=== PATIENT | female | born 1970 | race Caucasian/White ===

== ENCOUNTER 2017-08-06 11:58 | Inpatient (IN) | payer MEDICAID, OTHER ==
[~2017-08-06] VITALS: Ht 167.6 cm; Wt 226.3 kg
[~2017-08-06 11:58] MED LIST: DILT60TA55 PO; LISI10TA11 PO; METF500T2 PO; NAPR-1717 PO; ORE25 PO
[2017-08-06 12:01] VITALS: BP 135/78
--- NOTE | 2017-08-06 12:04 | NUR ---
PATIENT PRESENTS TO ED WITH SOB X YESTERDAY . PT STATES CONTINUOUS COUGHING , SOB, X YESTERDAY---APPEARING LETHARGIC, SLOWS / DRAGS SPEECH MID SENTENCE---PEDAL PITTING EDEMA NOTED--] . DENIES N/V/D; SKIN IS PINK/COOL/DRY; AOX4 RHONCHI TO ALL LOBES AUSCULTATED HR EVEN AND TACHY; PT DENIES ANY FEVER, CP ; PATIENT STATES PAIN OF 0/10 AT THIS TIME; VSS; PATIENT POSITIONED FOR COMFORT; HOB ELEVATED; BEDRAILS UP X2; BED DOWN. ER MD MADE AWARE OF PT STATUS.
[2017-08-06] MEDS ORDERED: ALBUTEROL SULFATE/IPRATROPIU 3 ML SOL IH ONE ×3 (12:05→14:40)
[2017-08-06] MEDS ORDERED: methylPREDNISolone SS 125 MG in WATER STERILE 2 ML IV ONE (12:05)
--- NOTE | 2017-08-06 12:09 | NUR ---
RT AT BEDSIDE
[2017-08-06] MEDS ORDERED: ALBU0.0912 IH (12:22)
[2017-08-06] MEDS ORDERED: GABA300C PO (12:22)
[2017-08-06] MEDS ORDERED: BECL0.0464 INH (12:22)
[2017-08-06] MEDS ORDERED: ALBU-71 IH (12:22)
--- NOTE | 2017-08-06 12:37 | NUR ---
RT AT BEDSIDE TO DRAW ABG
[2017-08-06 12:46] LABS: BASOPHILS # (AUTO) 0.2 K/uL (0.00-0.22); BASOPHILS % (AUTO) 1.8 % (0.0-2.0); EOSINOPHILS # (AUTO) 0.1 K/uL (0-0.4); HEMATOCRIT 35.3 % (36-48); HEMOGLOBIN 11.6 g/dL (12.0-16.0); LYMPHOCYTES # (AUTO) 0.8 K/uL (2.5-16.5); LYMPHOCYTES % (AUTO) 8.4 % (20.5-51.1); MEAN CORPUSCULAR HEMOGLOBIN 27 pg (27-31); MEAN CORPUSCULAR HGB CONC 33 g/dL (33-37); MEAN CORPUSCULAR VOLUME 81 fL (80-94); MONOCYTES # (AUTO) 1.2 K/uL (0.8-1.0); MONOCYTES % (AUTO) 11.9 % (1.7-9.3); NEUTROPHILS # (AUTO) 7.5 K/uL (1.8-7.7); NEUTROPHILS % (AUTO) 76.9 % (42.2-75.2); PLATELET COUNT (AUTO) 240 K/uL (140-450); RED BLOOD CELL COUNT(AUTO) 4.35 MIL/uL (4.20-5.40); RED CELL DISTRIBUTION WIDTH 14.7 % (11.6-13.7); WHITE BLOOD COUNT (AUTO) 9.8 K/uL (4.8-10.8)
--- NOTE | 2017-08-06 13:00 | NUR ---
URINE AND FECAL INCONTINENCE DURING COUGHING SPELL---CLEANED AND LINEN CHANGED--PT TOLERATED WITH MINIMAL DISCOMFORT STATED BY PT.---LONG PLACED AFTER CLEANING----
[2017-08-06] MEDS ORDERED: FUROSEMIDE 40 MG/4 ML VIAL IVP ONE (13:05)
[2017-08-06] MEDS ORDERED: NITROGLYCERIN 2% 1 GM PKT TP ONE (13:10)
[2017-08-06 13:12] LABS: ALBUMIN 3.5 g/dL (3.4-5.0); ANION GAP 13.1 (8-16); CARBON DIOXIDE 28.9 mmol/L (21-32); TOTAL BILIRUBIN 0.9 mg/dL (0.0-1.0)
--- NOTE | 2017-08-06 14:00 | NUR ---
PT ABLE TO HOLD CONVERSATION WITH DAUGHTERS AT BEDSIDE WITHOUT RESP DISTRESS NOTED---REMAINS NC 2 L---DENIES PAIN AT THIS TIME
--- NOTE | 2017-08-06 14:02 | NUR ---
FAMILY AT BEDSIDE---PT ADMITS BREATHING A LITTLE EASIER--DRY COUGH NOTED
[2017-08-06] MEDS ORDERED: ASPIRIN 325 MG TAB PO ONE (14:20)
--- NOTE | 2017-08-06 14:40 | NUR ---
RESTING WITH OU CLOSED, REMAIN ON O2 NC 2 L---DAUGHTERS STATED , THEY WILL RETURN LATER. PT AWAITS AVAILABLE ROOM FOR ADMISSION
--- NOTE | 2017-08-06 14:41 | NUR ---
RT AT BEDSIDE , REPEAT BREATHING TREATMENT
--- NOTE | 2017-08-06 14:45 | NUR ---
ADMITTING DX: SOB FOLLOW UP HHN THERAPY GIVEN
[2017-08-06] MEDS ORDERED: ONDANSETRON 4 MG/2 ML VIAL IVP PRN (14:55)
[2017-08-06 15:19] LABS: APPEARANCE,URINE CLEAR (CLEAR); BILIRUBIN,URINE NEGATIVE (NEGATIVE); BLOOD, URINE NEGATIVE (NEGATIVE); COLOR,URINE YELLOW (YELLOW); LEUKOCYTE ESTERASE ,URINE NEGATIVE (NEGATIVE); NITRITE, URINE NEGATIVE (NEGATIVE); PH,URINE 5.5 (5.0-9.0); UGLUCOSE NEGATIVE (NEGATIVE)
--- NOTE | 2017-08-06 15:20 | NUR ---
RESTING WITH OU CLOSED, NO S/S RESP DISTRESS AT THIS TIME WITH NO OBVIOUS ACCESSORY MUSCLE USE NOTED---NO GRIMACE NO MOAN--- AWAITS AVAILABLE ROOM FOR ADMISSION
--- NOTE | 2017-08-06 15:48 | NUR ---
Marj liz in [facility] - 08/06/17 at 1548 by MITCH Patient BIBA to bed 2.
--- NOTE | 2017-08-06 16:00 | NUR ---
RECEIVED PT ON UNIT VIA GURNEY, PT IS A/OX4, AMBULATES WITH ASSIST, PT IS HAVING SOB, PT IS ON O2 2L NC, PT HAS IV ON THE LEFT AND RIGHT AC, #20, PATENT, INTACT, FLUSHING WELL, PT HAS LONG CATHETER IN PLACE, 100ML OF CLEAR YELLOW URINE NOTED, SKIN IS INTACT, DISCUSSED PLAN OF CARE WITH PT, PT VERBALIZED UNDERSTANDING, ORIENTED PT TO ROOM, SAFETY/FALL PRECAUTIONS ARE IN PLACE, CALL LIGHT IS WITHIN REACH, PATIENT'S FAMILY MEMBER IS AT BEDSIDE.
--- NOTE | 2017-08-06 16:08 | NUR ---
Pt transferred to Tele via 107-B, REPORT GIVEN TO QUENTIN CHUN
--- NOTE | 2017-08-06 18:24 | NUR ---
PT SITTING IN BED EATING DINNER AT THIS TIME, CALL LIGHT WITHIN REACH.
--- NOTE | 2017-08-06 19:10 | NUR ---
ENDORSED PT TO RELIEF CAPTAIN NURSE FOR CONTINUITY OF CARE, PT STABLE AT THIS TIME, RT IS AT PT BEDSIDE.
--- NOTE | 2017-08-06 19:11 | NUR ---
RECEIVED REPORT AT BEDSIDE FROM DAY SHIFT RN. PT A/OX4 ON 4L O2 VIA NASAL CANNULA. PT HAS A 20G IV TO RIGHT AND LEFT AC. SKIN INTACT. SAFETY PRECAUTIONS IN PLACE. UPDATED BOARD. VITAL SIGNS WITHIN NORMAL LIMITS. PT IN STABLE CONDITION, NO SIGNS OF DISTRESS NOTED. BED IN LOW POSITION, CALL LIGHT WITHIN REACH. WILL CONTINUE TO MONITOR.
[2017-08-06] MEDS ORDERED: guaiFENesin DM 200/20 MG-10 ML 10 ML UDC PO PRN (20:45)
[2017-08-06] MEDS ORDERED: DEXTROSE 50% 50 ML SYR IVP PRN (20:45)
[2017-08-06] MEDS ORDERED: PNEUMOCOCCAL VACCINE 23 MCG/0.5 ML VIAL IMVAC PRN (21:20)
[2017-08-06 21:24] LABS: CREATINE KINASE MB 0.9 ng/mL (0-3.6)
[2017-08-06 21:40] VITALS: BP 147/84
[2017-08-06] MEDS: MORPHINE SULFATE 2 MG/ML SYR IVP PRN (22:02)
[2017-08-06] MEDS ORDERED: CLOPIDOGREL 75 MG TAB PO STA (22:39)
--- NOTE | 2017-08-06 22:40 | NUR ---
SPOKE TO DR MURO ON PHONE REGARDING ELEVATED TROPONIN. WILL PUT IN ORDERS
--- NOTE | 2017-08-06 23:00 | NUR ---
ADMINISTERED PLAVIX AND COUGH MEDICATION, PT TOLERATED WELL.
[2017-08-06] MEDS: guaiFENesin DM 200/20 MG-10 ML 10 ML UDC PO PRN (23:09)
--- NOTE | 2017-08-06 23:31 | NUR ---
SPOKE TO DR MURO ABOUT RADIOLOGY NOT BEING ABLE TO DO THE CT ON PATIENT DUE TO PATIENT WEIGHT. SPOKE TO THE PATIENT, AND STATED HE WOULD PUT IN NEW ORDERS. Addendum: 08/06/17 at 2335 by Maryjane Rivera RN ALSO SPOKE TO ABOUT ECG AND ABG RESULTS, SAID HE WOULD LOOK AT RESULTS.
[2017-08-06] MEDS: ALBUTEROL 0.083% 2.5 MG/3 ML NEBU IH PRN (23:36)
--- NOTE | 2017-08-06 23:47 | NUR ---
PLACED PATIENT ON 50% VENTURI MASK. TOLERATED WELL. 02 SAT AT 99%. NOTIFIED NURSE PAULA
[2017-08-07] VITALS: BP 158/83
[2017-08-07] MEDS ORDERED: ENOXAPARIN 100 MG/ML SYR SUBQ SCH (00:10)
[2017-08-07 04:00] VITALS: BP 119/89
[2017-08-07] MEDS: guaiFENesin DM 200/20 MG-10 ML 10 ML UDC PO PRN ×3 (05:09→20:59)
[2017-08-07 06:27] LABS: BASOPHILS # (AUTO) 0.1 K/uL (0.00-0.22); BASOPHILS % (AUTO) 1.6 % (0.0-2.0); EOSINOPHILS % (AUTO) 0.6 % (0.0-4.0); HEMATOCRIT 34.7 % (36-48); HEMOGLOBIN 11.3 g/dL (12.0-16.0); LYMPHOCYTES # (AUTO) 1.1 K/uL (2.5-16.5); LYMPHOCYTES % (AUTO) 17.2 % (20.5-51.1); MEAN CORPUSCULAR HEMOGLOBIN 27 pg (27-31); MEAN CORPUSCULAR HGB CONC 33 g/dL (33-37); MEAN CORPUSCULAR VOLUME 83 fL (80-94); MONOCYTES # (AUTO) 0.4 K/uL (0.8-1.0); NEUTROPHILS # (AUTO) 4.7 K/uL (1.8-7.7); NEUTROPHILS % (AUTO) 73.6 % (42.2-75.2); PLATELET COUNT (AUTO) 220 K/uL (140-450); RED CELL DISTRIBUTION WIDTH 14.9 % (11.6-13.7); WHITE BLOOD COUNT (AUTO) 6.3 K/uL (4.8-10.8)
[2017-08-07] MEDS: BLOOD GLUCOSE MONITORING 1 DEV DEV FS SCH ×2 (06:47→16:11)
--- NOTE | 2017-08-07 06:48 | NUR ---
PT BLOOD SUGAR 212. WILL NOT GIVE INSULIN BECAUSE PT IS NPO AND NOT RECEIVING IV FLUIDS.
[2017-08-07 06:49] LABS: ALBUMIN 3.2 g/dL (3.4-5.0); ANION GAP 10.9 (8-16); CARBON DIOXIDE 31.5 mmol/L (21-32); CREATININE 1.1 mg/dL (0.6-1.3); POTASSIUM 4.4 mmol/L (3.5-5.1); TOTAL BILIRUBIN 0.7 mg/dL (0.0-1.0)
[2017-08-07 07:08] LABS: CREATINE KINASE MB 0.8 ng/mL (0-3.6)
--- NOTE | 2017-08-07 07:10 | NUR ---
RECEIVED REPORT FROM CUSTOM PROTECTION OFFICER NURSE, PT IS IN BED, GETTING A SPONGE BATH BY THE BEAM CARRIER HAULER PUSHER, PT IS A/OX4, PT AMBULATES WITH WALKER, PT HAS IV ON THE LEFT AND RIGHT AC PATENT, INTACT, FLUSHING WELL, SKIN IS INTACT, PT IS ON A VENTURI MASK 15L, LONG BAG IS IN PLACE, DISCUSSED PLAN OF CARE WITH PT, PT VERBALIZED UNDERSTANDING, SAFETY/FALL PRECAUTIONS ARE IN PLACE, CALL LIGHT IS WITHIN REACH, WILL CONTINUE TO MONITOR.
--- NOTE | 2017-08-07 07:15 | NUR ---
ENDORSED PT TO DAY SHIFT RN, PT IN STABLE CONDITION.
[2017-08-07] MEDS: ALBUTEROL 0.083% 2.5 MG/3 ML NEBU IH PRN (07:38)
[2017-08-07 08:00] VITALS: BP 118/72
[2017-08-07] MEDS ORDERED: FUROSEMIDE 100 MG/10 ML VIAL IV SCH (09:00)
[2017-08-07] MEDS ORDERED: ENOXAPARIN 40 MG/0.4 ML SYR SUBQ SCH (09:00)
--- NOTE | 2017-08-07 09:03 | NUR ---
PATIENT HAS BEEN SCREENED AND CATEGORIZED HIGH NUTRITION RISK. PATIENT WILL BE SEEN WITHIN 1-2 DAYS OF ADMISSION. 08/06/17-08/07/[address]
[2017-08-07] MEDS: ASPIRIN 325 MG TAB PO SCH (09:32)
--- NOTE | 2017-08-07 09:32 | NUR ---
DUE MEDICATION GIVEN, PT TOLERATED WELL. CALL LIGHT WITHIN REACH.
[2017-08-07] MEDS: ENOXAPARIN 100 MG/ML SYR SUBQ SCH ×2 (09:39→21:24)
[2017-08-07 12:00] VITALS: BP 153/75
--- NOTE | 2017-08-07 12:00 | NUR ---
SPOKE TO DR. PACHECO I ASKED HIM IF THE PATIENT STILL NEEDED TO BE NPO, PER DR. PACHECO PT CAN EAT NOW.
[2017-08-07] MEDS: methylPREDNISolone SS 125 MG/2 ML VIAL IVP SCH ×2 (12:12→20:53)
--- NOTE | 2017-08-07 13:21 | NUR ---
Clinical review faxed to [facility] at [phone]
[2017-08-07] MEDS: MORPHINE SULFATE 2 MG/ML SYR IVP PRN ×2 (13:23→19:31)
--- NOTE | 2017-08-07 14:45 | NUR ---
08/07/17 RD INITIAL ASSESSMENT COMPLETED PLEASE REFER TO NUTRITION ASSESSMENT UNDER CARE ACTIVITY FOR ESTIMATED NUTRITIONAL NEEDS. 1.BEGIN CARDIAC CCHO 60 GM DIET, CONTINUE TO ASSESS PO ITNKAE AND DIET TOLERANCE 2.ATTEMPT TO DISCUSS AT-HOME DIET AND DIETARY RESTRICTIONS AT RD FOLLOW-UP VISIT 3.RD TO FOLLOW-UP 2-3 DAYS, HIGH RISK RHIANNON CEE, RD
[2017-08-07] MEDS ORDERED: FUROSEMIDE 40 MG/4 ML VIAL IVP SCH (15:46)
[2017-08-07 16:00] VITALS: BP 136/87
--- NOTE | 2017-08-07 16:00 | NUR ---
DR. ADAME IS AT PATIENT'S BEDSIDE SPEAKING WITH PT.
[2017-08-07] MEDS: INSULIN LISPRO SLIDING SCALE 100 UNITS/ML VIAL SUBQ PRN (16:14)
--- NOTE | 2017-08-07 17:25 | NUR ---
PAGED DR. PACHECO TO LET HIM KNOW THE PATIENT URINE WAS APPEARING RED.
[2017-08-07] MEDS: BUDESONIDE 0.5 MG/2 ML NEBU INH SCH (19:02)
[2017-08-07] MEDS: ALBUTEROL 0.083% 2.5 MG/3 ML NEBU INH SCH ×2 (19:02→23:15)
--- NOTE | 2017-08-07 19:24 | NUR ---
ENDORSED PT TO SENIOR SYSTEMS ANALYST NURSE FOR CONTINUITY OF CARE, PT STABLE AT THIS TIME.
--- NOTE | 2017-08-07 19:25 | NUR ---
RECEIVED REPORT AT BEDSIDE FROM DAY SHIFT RN. PT A/OX4 ON 5L O2 VIA OXYMIZER. PT HAS A 20G IV TO RIGHT AND LEFT AC. SKIN INTACT. LONG CATHETER IN PLACE WITH BLOOD IN URINE, HAS BEEN PAGED PER DAY SHIFT RN. SAFETY PRECAUTIONS IN PLACE. UPDATED BOARD. VITAL SIGNS WITHIN NORMAL LIMITS, PT C/O PAIN, WILL MEDICATE. PT IN STABLE CONDITION, NO SIGNS OF DISTRESS NOTED. BED IN LOW POSITION, CALL LIGHT WITHIN REACH. WILL CONTINUE TO MONITOR.
[2017-08-07 20:00] VITALS: BP 130/85
[2017-08-07] MEDS: FUROSEMIDE 40 MG/4 ML VIAL IVP SCH (20:52)
--- NOTE | 2017-08-07 21:00 | NUR ---
ENDORSED PT TO CORNICE MAKER PEYTON. PT IN STABLE CONDITION.
--- NOTE | 2017-08-07 21:15 | NUR ---
PATIENT WAS RECEIVED BY ADIEL LEE PATIENT AWAKE ALERT ORIENTED RESTING IN BED HAS OXYGEN IN PLACE COUGHING NOTED WITH NO PHLEGM AT THIS TIME.PATIENT IS CURRENTLY SOILED WITH URINE PATIENT STATES,"IM WET MY LONG CATHETER IS LEAKING." I WILL CHECK THE LONG CATHETER AND WILL CHANGE THE BED LINEN AND BED PADS WITH EDITOR MANAGING DIRECTOR LIBERTY. PATIENT IS ABLE TO MAKE NEEDS KNOWN AND CALL LIGHT IS WITHIN REACH.
--- NOTE | 2017-08-07 21:20 | NUR ---
LONG CATHETER TUBING WAS CHECKED FOR LEAKS NO LEAKS FOUND IN TUBING SO I ADDED A LITTLE MORE NORMAL SALINE WATER TO THE LONG CATHETER BALLOON.LONG CATHETER CONTINOUS TO BE IN PLACE.BED LINEN WAS CHANGED AND BED CHUCKS WELL PATIENT PROVIDED WITH GOOD PERICARE.PATIENT SKIN REMAINS INTACT.PATIENT ENCOURAGED TO TURN AND REPOSITION HERSELF IN BED TO PREVENT PRESSURE SORE OR RED SPOTS PATIENT VERBALIZES UNDERSTANDING.CALL LIGHT WITHIN REACH.
--- NOTE | 2017-08-07 22:28 | NUR ---
PATIENT IS CURRENTLY TELLING ME THAT SHE WANTS THE BIPAP REMOVED AND WANTS IT BACK ON LATER. I CALLED RESP THERAPIST ROGER AND SHE IS AWARE PATIENT WANTS BE TAKEN OFF THE BIPAP AND PLACED BACK ON THE OXYMIZER BEFORE PATIENT WAS TAKEN OFF THE BIPAP AND BACK ON THE OXYMIZER PATIENT COMPLAINS OF CHEST PAIN PATIENT STATES,"I THINK ITS FROM THE COUGHING CAN YOU CHECK IF ITS TIME FOR MY PAIN MEDICATION." THEN PATIENT STATES,"PLEASE I WANT TO TRY TO BE PLACED ON THE BIPAP LATER." RESPIRATORY ROGER CALLED AND MADE AWARE SHE TOLD ME SHE WILL COME SOON SHE CAN.
--- NOTE | 2017-08-07 23:15 | NUR ---
PT OFF BIPAP PER PT'S REQUEST. PLACED ON 5 L/M OXYMIZER BY ADIEL TODD, SAT 94%. PT SAYS SHE WILL TRY BIPAP AGAIN LATER. HHN TX GIVEN ORDERED. NO DISTRESS/WHEEZING NOTED AT THIS TIME. PT GOING BACK TO SLEEP.
--- NOTE | 2017-08-08 00:25 | NUR ---
PATIENT STABLE SLEEPING ON AND OFF.CALL LIGHT WITHIN REACH.
[2017-08-08 00:35] VITALS: BP 155/82
[2017-08-08] MEDS: MORPHINE SULFATE 2 MG/ML SYR IVP PRN ×4 (02:18→21:05)
--- NOTE | 2017-08-08 02:55 | NUR ---
MADE ROUNDS PATIENT WOKE UP I ASKED HER IF HER PAIN IS BETTER SHE SAID YES ITS LESS.PATIENT COMPLAINS OF COUGHING A LOT AND PATIENT STATES,"I HAVE PAIN TO MY STOMACH AND MY CHEST FROM THE COUGHING BUT ITS LESS AFTER I GOT THE PAIN MEDICATION." PATIENT IS ALSO COMPLAINING OF FEELING HER NOSE DRY AND DISCOMFORT FROM THE OXYGEN I CALLED CONCEPCION AND INFORMED HIM ABOUT PATIENT COMPLAINING OF DRYNESS TO HER NOSE FROM THE OXYGEN AND I ALSO TOLD RESP THERAPIST CONCEPCION IS HE COULD BRING A EXTENSION FOR HER OXYGEN BECAUSE WHEN SHE TURNS THE TUBE IS SHORT AND TIGHTENS.CONCEPCION SAID HE IS COMING SHORTLY TO SEE THE PATIENT ALSO BECAUSE SHE IS ALMOST DUE FOR A BREATHING TREATMENT.
[2017-08-08] MEDS: ALBUTEROL 0.083% 2.5 MG/3 ML NEBU INH SCH ×6 (03:03→22:52)
--- NOTE | 2017-08-08 03:08 | NUR ---
PATIENT C/O NASAL DRYNESS WITH THE USE OF SUPPLEMENTAL OXYGEN POST HHN THERAPY ADDED A HUMIDIFIER
[2017-08-08 04:40] VITALS: BP 136/68
--- NOTE | 2017-08-08 04:45 | NUR ---
PATIENT IS ASLEEP IN BED NO COMPLAINS OF PAIN OR DISCOMFORT NOTED AT THIS TIME. PATIENT IS DRY BED LINEN UNDERNEATH PATIENT DRY. LONG CATHETER TO GRAVITY WITH YELLOWISH URINE NOTED WITNESSED BY LEVI DONOVAN.PATIENT IS PASSING GAS BUT HASN'T BM YET.PATIENT CONTINUES TO BE ENCOURAGED TO AMBULATE WITHOUT ASSISTANCE.
[2017-08-08] MEDS: FUROSEMIDE 40 MG/4 ML VIAL IVP SCH ×3 (05:43→20:41)
[2017-08-08] MEDS: methylPREDNISolone SS 125 MG/2 ML VIAL IVP SCH (05:43)
[2017-08-08] MEDS: BUDESONIDE 0.5 MG/2 ML NEBU INH SCH ×2 (06:54→18:34)
--- NOTE | 2017-08-08 06:55 | NUR ---
PT WANTS TO SLEEP. DOES NOT WANT BREATHING TX NOW. NO SOB OR DISTRESS NOTED. WILL CONTINUE TO MONITOR.
[2017-08-08] MEDS: BLOOD GLUCOSE MONITORING 1 DEV DEV FS SCH ×2 (07:03→16:30)
[2017-08-08] MEDS: INSULIN LISPRO SLIDING SCALE 100 UNITS/ML VIAL SUBQ PRN ×3 (07:04→18:10)
[2017-08-08 07:23] LABS: BASOPHILS % (AUTO) 0.6 % (0.0-2.0); EOSINOPHILS % (AUTO) 0.2 % (0.0-4.0); HEMATOCRIT 34.7 % (36-48); HEMOGLOBIN 11.2 g/dL (12.0-16.0); LYMPHOCYTES # (AUTO) 1.1 K/uL (2.5-16.5); LYMPHOCYTES % (AUTO) 14.4 % (20.5-51.1); MEAN CORPUSCULAR HEMOGLOBIN 27 pg (27-31); MEAN CORPUSCULAR HGB CONC 32 g/dL (33-37); MEAN CORPUSCULAR VOLUME 82 fL (80-94); MONOCYTES # (AUTO) 0.6 K/uL (0.8-1.0); MONOCYTES % (AUTO) 8.1 % (1.7-9.3); NEUTROPHILS # (AUTO) 5.6 K/uL (1.8-7.7); NEUTROPHILS % (AUTO) 76.7 % (42.2-75.2); PLATELET COUNT (AUTO) 235 K/uL (140-450); RED BLOOD CELL COUNT(AUTO) 4.21 MIL/uL (4.20-5.40); RED CELL DISTRIBUTION WIDTH 14.7 % (11.6-13.7); WHITE BLOOD COUNT (AUTO) 7.3 K/uL (4.8-10.8)
[2017-08-08 07:34] LABS: ANION GAP 8.5 (8-16); CARBON DIOXIDE 35.4 mmol/L (21-32); POTASSIUM 3.9 mmol/L (3.5-5.1)
--- NOTE | 2017-08-08 07:42 | NUR ---
PATIENT STABLE REPORT TO ADIEL MADESN.
[2017-08-08 08:00] VITALS: BP 127/69
--- NOTE | 2017-08-08 08:00 | NUR ---
PT IN BED SLEEPING COMFORTABLY WITHOUT ANY RESP DISTRESS. PT IS ABLE TO AROUSE EASILY VIA VERBAL COMMAND APPROPRIATELY. NO PAIN OR RESP DISTRESS NOTED. PT IS ON 5L VIA OXIMIZER AND SATURATING AT 93%. APT IS ABLE TO MOVE ALL EXT WELL IN BED WITHOUT ASSIST. NORMAL SINUS RHYTHM ON THE MONITOR. V/S STABLE.
[2017-08-08] MEDS: ASPIRIN 325 MG TAB PO SCH (09:28)
[2017-08-08] MEDS: CLOPIDOGREL 75 MG TAB PO SCH (09:28)
[2017-08-08] MEDS: ENOXAPARIN 100 MG/ML SYR SUBQ SCH (10:01)
[2017-08-08] MEDS: guaiFENesin DM 200/20 MG-10 ML 10 ML UDC PO PRN ×2 (10:02→18:16)
--- NOTE | 2017-08-08 10:30 | NUR ---
COMPLAINT OF CHEST AND RIB PAIN / DUE TO COUGH. MORPHINE SULFATE 2 MG IVP AND ROBITUSSIN PO GIVEN AT 1003 FOR COMPLAINT. PT IS BACK TO SLEEPING. NO ACUTE DISTRESS OR CONDITION CHANGES NOTED..
[2017-08-08 12:00] VITALS: BP 134/77
[2017-08-08] MEDS: methylPREDNISolone SS 40 MG/ML VIAL IVP SCH ×2 (12:52→20:41)
--- NOTE | 2017-08-08 14:36 | NUR ---
PT IS DEEPLY SLEEPING. NO HHN TX GIVEN. NO SOB OR DISTRESS NOTED. ADIEL DUMONT. LEVI BADLERAS AT BEDSIDE. WILL CONTINUE TO MONITOR.
--- NOTE | 2017-08-08 14:40 | NUR ---
Social Service Note: I received a call from patient's daughter Virginia . Virginia requested information on how to transfer patient to another hospital. I provided her with information and inquired why she wanted patient to be transfer to another hospital. She stated there was lack of communication among nursing staff. She reported she has been requesting to speak with attending physician and no one has called her. I apologized and offered to speak with our charge nurse regarding this matter. I also informed her she had the right to file a compliant. She verbalized understanding and thanked me for my assistance. I informed charge nurse Ana of above information and requested to have physician contact Virginia.
--- NOTE | 2017-08-08 14:50 | NUR ---
PT IN BED SLEEPING WELL. NO ACUTE DISTRESS OR CONDITION CHANGES NOTED. PT REMAINS NORMAL SINUS RHYTHM ON THE MONITOR. 4 UNITS OF INSULIN WAS GIVEN FOR BLOOD SUGAR OF 220. PT'S BOY FRIEND IN PRESENT AT THE BED SITE.
--- NOTE | 2017-08-08 15:18 | NUR ---
COMPLAINT OF CHEST PAIN 03/26, MORPHINE SULFATE 2 MG IVP GIVEN. PT AWAKE IN BED TALKING TO HER BOY FRIEND. NO RESP DISTRESS NOTED.
[2017-08-08 16:00] VITALS: BP 132/56
--- NOTE | 2017-08-08 16:35 | NUR ---
PT IS HAVING BLOOD TING OUT PUT VIA HER LONG CATH AND ALSO STLL BLEEDING FROM THE LOVENOX SITE FROM THIS MORNING. DR PACHECO CALLED AND NOTIFIED ABOUT THE BLEEDING. ORDERS TO DC LOVENOX OBTAINED FROM . PT IS CURRENTLY ASSISTED UP IN THE CHAIR. FAMILY IS AT THE BED SITE.
--- NOTE | 2017-08-08 18:53 | NUR ---
PT IS ASSISTED BACK TO BED BY HER DAUGHTER. BLEEDING FROM THE CATHETER SEEMS TO BE A LITTLE MORE THAN PRIOR. PT STATES THAT CATHETER WAS NOT PULLED ON. CHARGE NURSE IS AT THE BED SITE IRRIGATING THE CATHETER AT THIS TIME. WILL PAGE AND UP DATE .
--- NOTE | 2017-08-08 19:30 | NUR ---
ORDERS TO DO BLADDER IRRIGATION 14H OBTAINED FROM DR JONES. ORDERS PASSED ON TO NOC NURSE. PT IN BED RESTING WELL.
--- NOTE | 2017-08-08 19:31 | NUR ---
PATIENT REPORT RECEIVED AT BEDSIDE FROM MORNING NURSE. PATIENT IS AWAKE, ALERT AND ORIENTED. NO SIGNS AND SYMPTOMS OF DISTRESS NOTED. PATIENT ON 5L O2 VIA OXYMIZER. PATIENT'S FAMILY IS AT BEDSIDE. IV SITE NOTED ON LEFT AC, SALINE LOCKED. LONG CATHETER IN PLACE DRAINING DARK LEAH URINE. PLAN OF CARE DISCUSSED WITH PATIENT AND FAMILY, PATIENT VERBALIZED UNDERSTANDING. BED IN LOWEST POSITION, SEMI-FOWLERS, AND SIDE RAILS UP AND CALL LIGHT WITH WITHIN REACH, WILL CONTINUE TO MONITOR.
[2017-08-08 20:00] VITALS: BP 129/72
--- NOTE | 2017-08-08 23:59 | NUR ---
2350 RN TOOK PT OFF BIPAP. PT WAS COUGHING TO MUCH. WILL GO BACK ON WHEN SHES READY
[2017-08-09] VITALS: BP 139/78
--- NOTE | 2017-08-09 | NUR ---
EMPTIED LONG CATHETER BAG, 800 ML OF BLOOD TINGED URINE COLLECTED. BLADDER IRRIGATION DONE WITH 200ML NS.
--- NOTE | 2017-08-09 00:10 | NUR ---
LOVENOX SITE DRESSING CHANGED. MODERATE SATURATION NOTED.
[2017-08-09] MEDS: guaiFENesin DM 200/20 MG-10 ML 10 ML UDC PO PRN ×2 (00:17→09:47)
--- NOTE | 2017-08-09 01:00 | NUR ---
CHECKED ON PATIENT. PATIENT IS ASLEEP. NO SIGNS AND SYMPTOMS OF DISTRESS NOTED. WILL CONTINUE TO MONITOR.
[2017-08-09] MEDS: MORPHINE SULFATE 2 MG/ML SYR IVP PRN ×5 (01:46→20:19)
[2017-08-09] MEDS: ALBUTEROL 0.083% 2.5 MG/3 ML NEBU INH SCH ×6 (03:35→22:46)
[2017-08-09 04:00] VITALS: BP 141/77
[2017-08-09] MEDS: FUROSEMIDE 40 MG/4 ML VIAL IVP SCH ×3 (04:30→20:19)
--- NOTE | 2017-08-09 04:30 | NUR ---
BLADDER IRRIGATION DONE WITH 200ML NS. PATIENT TOLERATED WELL.
[2017-08-09] MEDS: methylPREDNISolone SS 40 MG/ML VIAL IVP SCH ×3 (04:31→20:19)
--- NOTE | 2017-08-09 04:40 | NUR ---
JUDITH SITE DRESSING CHANGED. MODERATE AMOUNT OF BLOOD NOTED. Addendum: 08/09/17 at 0633 by Romero Santana RN WRONG TIME
--- NOTE | 2017-08-09 05:45 | NUR ---
LOVENOX SITE DRESSING CHANGED. MODERATE AMOUNT OF BLOOD NOTED.
[2017-08-09] MEDS: INSULIN LISPRO SLIDING SCALE 100 UNITS/ML VIAL SUBQ PRN ×2 (06:14→16:40)
[2017-08-09] MEDS: BLOOD GLUCOSE MONITORING 1 DEV DEV FS SCH ×2 (06:33→16:40)
[2017-08-09 07:11] LABS: HEMATOCRIT 35.3 % (36-48); HEMOGLOBIN 11.6 g/dL (12.0-16.0); MEAN CORPUSCULAR HEMOGLOBIN 27 pg (27-31); MEAN CORPUSCULAR HGB CONC 33 g/dL (33-37); MEAN CORPUSCULAR VOLUME 82 fL (80-94); PLATELET COUNT (AUTO) 233 K/uL (140-450); RED BLOOD CELL COUNT(AUTO) 4.32 MIL/uL (4.20-5.40); RED CELL DISTRIBUTION WIDTH 14.6 % (11.6-13.7); WHITE BLOOD COUNT (AUTO) 13.9 K/uL (4.8-10.8)
--- NOTE | 2017-08-09 07:15 | NUR ---
PATIENT REPORT GIVEN TO MORNING NURSE AT BEDSIDE. PATIENT IS IN STABLE CONDITION
--- NOTE | 2017-08-09 07:20 | NUR ---
RECEIVED PATIENT REPORT AT BEDSIDE, PATIENT IS SLEEPING AND EASILY AROUSABLE WITH VOICE. PATIENT IS AAOX3 AND STATES TOLERABLE PLEURITIC CHEST PAIN OF 6/10. PATIENT SHOWS NO S/S OF ACUTE DISTRESS ON O2 @ 4L VIA OXYMIZER WITH O2 SAT AT 99%. IV NOTED ON THE LT AC SL. NOTED DRX CLEAN DRY AND INTACT ON THE ABD. LONG CATHETER IN PLACE WITH RED LEAH URINE. SAFETY PRECAUTIONS IN PLACE. BIPAP AT BEDSIDE HOWEVER PATIENT STATED , "IT HURTS WHEN I HAVE IT ON." PATIENT WAS DISCUSSED POC FOR TODAY SHE VERBALIZED UNDERSTANDING. THE BED IS IN LOW POSITION WITH CALL LIGHT WITHIN REACH. WILL CONTINUE TO MONITOR.
[2017-08-09 07:44] LABS: ANION GAP 8.8 (8-16); CARBON DIOXIDE 35.9 mmol/L (21-32); CREATININE 0.9 mg/dL (0.6-1.3); POTASSIUM 3.7 mmol/L (3.5-5.1)
[2017-08-09 07:46] LABS: PHOSPHORUS 3.8 mg/dL (2.5-4.9)
[2017-08-09 07:49] LABS: CHOL/HDL RATIO 3.1 (1-4.5)
[2017-08-09 08:00] VITALS: BP 141/79
--- NOTE | 2017-08-09 08:15 | NUR ---
PATIENT ASKED TO HAVE BLADDER IRRIGATION DONE AT A LATER TIME. SHE IS EATING BREAKFAST.
[2017-08-09 08:38] LABS: BASOPHILS % (MANUAL) 0 % (0-2); EOSINOPHILS % (MANUAL) 0 % (0-4); LYMPHOCYTES % (MANUAL) 5 % (20-46); MONOCYTES % (MANUAL) 8 % (5-12)
[2017-08-09] MEDS: CLOPIDOGREL 75 MG TAB PO SCH (09:00)
[2017-08-09] MEDS: BUDESONIDE 0.5 MG/2 ML NEBU INH SCH ×2 (09:01→19:27)
[2017-08-09] MEDS: ASPIRIN 325 MG TAB PO SCH (09:47)
--- NOTE | 2017-08-09 09:47 | NUR ---
ADMINISTERED SCHEDULED MEDICATIONS. PATIENT SWALLOWED WITHOUT DIFFICULTY. PATIENT THEN C/O 6/10 PAIN AND COULD NOT TOLERATE ANYMORE. PATIENT WAS GIVEN MORPHINE 2 MG IVP. PATIENT ALSO C/O COUGH AND WAS GIVEN PRN COUGH MEDICATION. THE BED IS IN LOW POSITION WITH CALL LIGHT WITHIN REACH.
--- NOTE | 2017-08-09 09:50 | NUR ---
DID NOT ADMINISTER PLAVIX 75 MG PO D/T PATIENT HEMATURIA. WILL CONTINUE TO MONITOR.
--- NOTE | 2017-08-09 10:05 | NUR ---
PATIENT AGREED TO HAVE BLADDER IRRIGATED AT THIS TIME. LONG CATHETER HAD 700 CC OF DARK RED LEAH URINE. 200CC OF NS WAS ADMINISTERED THROUGH LONG CATHETER FOR IRRIGATION. PATIENT TOLERATED ACTIVITY WELL. ALL NEEDS MET AT THIS TIME. WILL CONTINUE TO MONITOR.
--- NOTE | 2017-08-09 11:15 | NUR ---
RT AT BEDSIDE. PATIENT SHOWS NO S/S OF ACUTE DISTRESS AT THIS TIME WILL CONTINUE TO MONITOR.
[2017-08-09 12:00] VITALS: BP 140/62
[2017-08-09] MEDS ORDERED: BENZONATATE 100 MG CAPLF PO PRN (12:30)
--- NOTE | 2017-08-09 12:35 | NUR ---
PATIENT HAS BOYFRIEND AT BEDSIDE. PATIENT STATES, "I FEEL TIRED, I HAVE NO PAIN RIGHT NOW." THE BED IS IN LOW POSITION WITH CALL LIGHT WITHIN REACH. WILL CONTINUE TO MONITOR.
--- NOTE | 2017-08-09 13:30 | NUR ---
ADMINISTERED SCHEDULED MEDICATIONS. PATIENT TOLERATED ACTIVITY. ALL NEEDS MET AT THIS TIME. WILL CONTINUE TO MONITOR.
--- NOTE | 2017-08-09 14:00 | NUR ---
BLADDER IRRIGATED. LONG CATHETER HAD 400 CC OF DARK RED LEAH URINE. 200CC OF NS WAS ADMINISTERED THROUGH LONG CATHETER FOR IRRIGATION. PATIENT TOLERATED ACTIVITY WELL. ALL NEEDS MET AT THIS TIME. WILL CONTINUE TO MONITOR.
[2017-08-09] MEDS: PROMETH/CODEINE 6.25-10MG/5ML 5 ML UDC PO PRN ×2 (15:23→23:57)
--- NOTE | 2017-08-09 15:30 | NUR ---
FOUND CUP WITH BLOODY PHLEGM. PATIENT STATED, " I COUGHED THAT UP TODAY, I DON'T THINK THE DR KNOWS ABOUT IT." DR PACHECO WAS PAGED. DR HAS RR OF 22 WITH LABORED BREATHING NO CHANGES SINCE THIS MORNING. WILL NOTIFY DR PACHECO OF BLOODY SPUTUM. AWAITING FOR CALL BACK.
--- NOTE | 2017-08-09 15:40 | NUR ---
PATIENT C/O COUGH AND PAIN ADMINISTERED PRN COUGH MEDICATION. WHILE ADMINISTERING IV MORPHINE 2 MG IV PATIENT STATED, "IT'S HURTING" IV WAS DISCONTINUED WITH CANNULA INTACT. NEW IV WAS ATTEMPTED WITH NO SUCCESS. WILL ASK FOR ASSISTANCE FOR NEW IV.
[2017-08-09 16:00] VITALS: BP 155/59
--- NOTE | 2017-08-09 16:00 | NUR ---
NEW IV SUCCESSFULLY ATTEMPTED ON THE RT HAND 22G SL. IV MORPHINE ADMINISTERED FOR 6/10 CHEST PAIN. WILL CONTINUE TO MONITOR. ALL NEEDS MET AT THIS TIME.
[2017-08-09] MEDS: ACETAMINOPHEN 325 MG TAB PO PRN (16:13)
--- NOTE | 2017-08-09 16:15 | NUR ---
PATIENT HAD TEMPERATURE OF 100.0. PROVIDED WITH COOLING MEASURES AND PATIENT REQUESTED FOR TYLENOL. GAVE TYLENOL 650 MG PO. WILL CONTINUE TO MONITOR.
--- NOTE | 2017-08-09 16:30 | NUR ---
PAGED DR PACHECO AGAIN IN REGARDS TO PATIENT BLOODY SPUTUM. PATIENT ALSO REQUEST TO HAVE A HIGHER DOSE OF MORPHINE FOR CHEST PAIN, ALSO WILL REQUEST FOR BREATHING TX PRN. AWAITING FOR CALL BACK.
--- NOTE | 2017-08-09 16:31 | NUR ---
DR PACHECO NOTIFIED OF PATIENT REQUESTING HIGHER DOSE OF MORPHINE. SAID, "NO".
[2017-08-09] MEDS ORDERED: ALBUTEROL SULFATE/IPRATROPIU 3 ML SOL IH PRN (17:30)
--- NOTE | 2017-08-09 17:35 | NUR ---
RECEIVED CALL BACK FROM DR PACHECO. IS AWARE OF BLOOD IN SPUTUM. ORDERED TO DC PLAVIX ORDER AND OKAY TO ORDER BREATHING TX. WILL PLACE IN ORDERS.
--- NOTE | 2017-08-09 18:00 | NUR ---
BLADDER IRRIGATED. LONG CATHETER HAD 150 CC OF DARK RED LEAH URINE. 200CC OF NS WAS ADMINISTERED THROUGH LONG CATHETER FOR IRRIGATION. PATIENT TOLERATED ACTIVITY WELL. ALL NEEDS MET AT THIS TIME. WILL CONTINUE TO MONITOR.
--- NOTE | 2017-08-09 19:30 | NUR ---
RECEIVED REPORT FROM AM NURSE. PT VISITOR AT BEDSIDE. PT RESTING IN BED COMFORTABLY, AOX4, ABLE TO AMBULATE WITH ASSIST, ABLE TO VERBALIZE NEEDS. PT C/O CHEST TIGHTNESS, WILL MEDICATE ORDERED. PT DENIES SOB AT THIS TIME, SPO2 97% ON 4L O2 OXYMIZER, RR 22 EVEN AND AT BASELINE. LONG CATH IN PLACE, DRAINING DARK RED LEAH URINE. IV ACCESS ASYMPTOMATIC, PATENT AND INTACT. SALINE LOCKED. DISCUSSED AND REVIEWED PLAN OF CARE WITH PT, PT VERBALIZED UNDERSTANDING. ALL NEEDS MET. SAFETY MEASURES ENSURED. CALL LIGHT WITHIN REACH. WILL CONTINUE TO MONITOR.
[2017-08-09 20:00] VITALS: BP 139/72
--- NOTE | 2017-08-09 20:20 | NUR ---
PT C/O CHEST TIGHTNESS. SEE PAIN ASSESSMENT. ADMINISTERED MORPHINE 2MG IVP PRN ORDERED WITH EDUCATION. ADMINISTERED DUE MEDS WITH EDUCATION. PT VERBALIZED UNDERSTANDING, TOLERATED MEDS WELL. ALL NEEDS MET. SAFETY MEASURES ENSURED. CALL LIGHT WITHIN REACH. WILL CONTINUE TO MONITOR.
--- NOTE | 2017-08-09 22:00 | NUR ---
LONG CATH EMPTIED, 1300ML DARK LEAH TO LIGHT LEAH URINE. BLADDER IRRIGATED WITH 200ML NS ORDERED AT THIS TIME, PT TOLERATED WELL. ALL NEEDS MET. PT RESTING COMFORTABLY, NO S/S OF ACUTE DISTRESS. SAFETY MEASURES ENSURED. CALL LIGHT WITHIN REACH. WILL CONTINUE TO MONITOR.
--- NOTE | 2017-08-09 23:58 | NUR ---
PT REQUESTING TO SHOWER, DISCUSSED THAT PT IS UNSTABLE AT THIS TIME TO SHOWER INDEPENDENTLY DUE TO OXYGEN SUPPLEMENTATION. PT AGREED TO SPONGE BATH. PT ASSISTED TO SPONGE BATH BY PT'S BOYFRIEND. BED LINEN CHANGED. PT TOLERATED WELL. PT C/O COUGH. INTERMITTENT PRODUCTIVE COUGH NOTED, WHITE TO YELLOW CREAMY PHLEGM NOTED. ADMINISTERED DUE MED PHENERGAN PRN ORDERED. PT VERBALIZED UNDERSTANDING, TOLERATED MED WELL. CONDITION STABLE. SPO2 95% ON 4L O2 OXYMIZER, RR 22 EVEN AND AT BASELINE. ALL NEEDS MET. SAFETY MEASURES ENSURED. CALL LIGHT WITHIN REACH. WILL CONTINUE TO MONITOR.
[2017-08-10] VITALS: BP 139/76
--- NOTE | 2017-08-10 | NUR ---
PT REFUSED TO HAVE BIPAP WHILE SLEEPING, PT STATED THAT SHE GETS ANXIOUS AND CLAUSTROPHOBIC. CONDITION STABLE, SPO2 95% ON 4L O2 OXYMIZER, RR 22 EVEN AND UNLABORED. PT DENIES SOB. RT AWARE.
--- NOTE | 2017-08-10 02:00 | NUR ---
LONG CATH EMPTIED, 800ML LEAH URINE WITH SLIGHT PINK TINGE. BLADDER IRRIGATED WITH 200ML NS ORDERED AT THIS TIME, PT TOLERATED WELL. ALL NEEDS MET. PT SLEEPING COMFORTABLY, NO S/S OF ACUTE DISTRESS. SAFETY MEASURES ENSURED. CALL LIGHT WITHIN REACH. WILL CONTINUE TO MONITOR.
[2017-08-10 04:00] VITALS: BP 152/74
[2017-08-10] MEDS: methylPREDNISolone SS 40 MG/ML VIAL IVP SCH (04:18)
--- NOTE | 2017-08-10 04:20 | NUR ---
PT SLEEPING COMFORTABLY, AROUSABLE TO NAME, SPO2 96% ON 4L O2 OXYMIZER, RR 20 EVEN AND UNLABORED. ADMINISTERED DUE MED SOLUMEDROL IVP WITH EDUCATION, PT STATED OK. ALL NEEDS MET. SAFETY MEASURES ENSURED. CALL LIGHT WITHIN REACH. WILL CONTINUE TO MONITOR.
[2017-08-10] MEDS: MORPHINE SULFATE 2 MG/ML SYR IVP PRN ×4 (06:05→21:35)
[2017-08-10] MEDS: BLOOD GLUCOSE MONITORING 1 DEV DEV FS SCH ×2 (06:06→16:38)
[2017-08-10] MEDS: INSULIN LISPRO SLIDING SCALE 100 UNITS/ML VIAL SUBQ PRN ×2 (06:14→16:38)
--- NOTE | 2017-08-10 06:14 | NUR ---
LONG CATH EMPTIED, 650ML CLOUDY LEAH URINE WITH SEDIMENTS. BLADDER IRRIGATED WITH 200ML NS ORDERED AT THIS TIME, PT TOLERATED WELL. BLOOD GLUCOSE 212, INSULIN COVERAGE ADMINISTERED WITH EDUCATION. PT C/O CHEST TIGHTNESS, SEE PAIN ASSESSMENT, ADMINISTERED 2MG MORPHINE IVP PRN ORDERED WITH EDUCATION. PT STATED OK. ALL NEEDS MET. NO S/S OF ACUTE DISTRESS. SAFETY MEASURES ENSURED. CALL LIGHT WITHIN REACH. WILL CONTINUE TO MONITOR.
[2017-08-10 07:05] LABS: BASOPHILS % (AUTO) 0.3 % (0.0-2.0); EOSINOPHILS % (AUTO) 0.2 % (0.0-4.0); HEMATOCRIT 35.1 % (36-48); HEMOGLOBIN 11.4 g/dL (12.0-16.0); LYMPHOCYTES # (AUTO) 1.1 K/uL (2.5-16.5); LYMPHOCYTES % (AUTO) 8.4 % (20.5-51.1); MEAN CORPUSCULAR HEMOGLOBIN 26 pg (27-31); MEAN CORPUSCULAR HGB CONC 32 g/dL (33-37); MEAN CORPUSCULAR VOLUME 82 fL (80-94); MONOCYTES # (AUTO) 1.1 K/uL (0.8-1.0); MONOCYTES % (AUTO) 8.5 % (1.7-9.3); NEUTROPHILS % (AUTO) 82.6 % (42.2-75.2); PLATELET COUNT (AUTO) 225 K/uL (140-450); RED BLOOD CELL COUNT(AUTO) 4.31 MIL/uL (4.20-5.40); RED CELL DISTRIBUTION WIDTH 14.4 % (11.6-13.7); WHITE BLOOD COUNT (AUTO) 13.2 K/uL (4.8-10.8)
--- NOTE | 2017-08-10 07:10 | NUR ---
ENDORSED PLAN OF CARE TO AM NURSE. CONDITION STABLE.
--- NOTE | 2017-08-10 07:15 | NUR ---
RECEIVED PATIENT REPORT AT BEDSIDE, PATIENT IS SLEEPING AND EASILY AROUSABLE WITH VOICE. PATIENT IS AAOX3 AND STATES TOLERABLE PLEURITIC CHEST PAIN OF 6/10 BUT WOULD LIKE PRN PAIN MEDICATION WHEN IT IS AVAILABLE. PATIENT SHOWS NO S/S OF ACUTE DISTRESS ON O2 @ 4L VIA OXYMIZER WITH O2 SAT AT 97%. IV NOTED ON THE RT HAND SL. LONG CATHETER IN PLACE WITH PINK TINGED URINE. SKIN IS MOIST, BS THIS AM IS 199. SAFETY PRECAUTIONS IN PLACE. BIPAP AT BEDSIDE HOWEVER PATIENT STATED , "IT HURTS WHEN I HAVE IT ON." PATIENT WAS DISCUSSED POC FOR TODAY SHE VERBALIZED UNDERSTANDING. THE BED IS IN LOW POSITION WITH CALL LIGHT WITHIN REACH. WILL CONTINUE TO MONITOR.
[2017-08-10] MEDS: ALBUTEROL 0.083% 2.5 MG/3 ML NEBU INH SCH (07:18)
[2017-08-10] MEDS: BUDESONIDE 0.5 MG/2 ML NEBU INH SCH ×2 (07:19→19:06)
[2017-08-10 07:23] LABS: MAGNESIUM 2.2 mg/dL (1.8-2.4); PHOSPHORUS 3.3 mg/dL (2.5-4.9)
[2017-08-10 07:30] LABS: ANION GAP 7.3 (8-16); CARBON DIOXIDE 39.8 mmol/L (21-32); CREATININE 0.9 mg/dL (0.6-1.3); POTASSIUM 4.1 mmol/L (3.5-5.1)
--- NOTE | 2017-08-10 07:40 | NUR ---
PATIENT IS RECEIVING BREATHING TX BY RT.
[2017-08-10 08:00] VITALS: BP 146/72
[2017-08-10] MEDS: ASPIRIN 325 MG TAB PO SCH (09:54)
[2017-08-10] MEDS: CARVEDILOL 3.125 MG TAB PO SCH (09:54)
[2017-08-10] MEDS: FUROSEMIDE 40 MG/4 ML VIAL IVP SCH ×2 (09:54→21:35)
[2017-08-10] MEDS: PROMETH/CODEINE 6.25-10MG/5ML 5 ML UDC PO PRN (09:55)
--- NOTE | 2017-08-10 10:00 | NUR ---
ADMINISTERED SCHEDULED MEDICATIONS. PATIENT SWALLOWED MEDICATIONS WITHOUT DIFFICULTY. WHILE ADMINISTERING IV LASIX 40 MG PATIENT STATED IV WAS HURTING HER. IV WAS DISCONTINUED WITH CANNULA INTACT. NEW IV SITE SUCCESSFULLY ATTEMPTED ON THE LEFT FOREARM 22G SL. IV MEDICATIONS WAS THEN ADMINISTERED. PT C/O OF 6/10 PLEURITIC CHEST PAIN MORPHINE 2 MG IV WAS GIVEN. WILL REASSESS IN ONE HR.
--- NOTE | 2017-08-10 10:01 | NUR ---
PT REQUEST TO HAVE BLADDER IRRIGATION AFTER FAMILY VISIT. WILL CONTINUE TO MONITOR.
--- NOTE | 2017-08-10 10:30 | NUR ---
DR JONES AT BEDSIDE. ENCOURAGED PATIENT TO USE BIPAP MACHINE. STEVIE PATE AT BEDSIDE ASSISTING PATIENT WITH BIPAP MACHINE. PATIENT TOLERATING WELL AT THIS TIME HOWEVER STATES, " I FEEL LIKE IT'LL SUFFOCATED ME." STEVIE RT EDUCATED PATIENT ON HOW TO USE MACHINE AND BENEFITS FOR PATIENT USING BIPAP MACHINE.
[2017-08-10] MEDS ORDERED: ALBUTEROL SULFATE/IPRATROPIU 3 ML SOL IH PRN (10:35)
[2017-08-10] MEDS: ALBUTEROL SULFATE/IPRATROPIU 3 ML SOL IH SCH ×4 (11:06→23:39)
--- NOTE | 2017-08-10 11:11 | NUR ---
PLACED PT ON BIPAP WITH SETTINGS CHARTEDBREATH SOUNDS PRESENT BILAT COARSE B EXPLAINED BIPAP TO PT PT MEGAN WELL AT THIS TIME WILL CONTINUE TO MONITOR PT ON BIPAP
[2017-08-10] MEDS: methylPREDNISolone SS 125 MG/2 ML VIAL IVP SCH ×3 (11:26→23:14)
--- NOTE | 2017-08-10 11:30 | NUR ---
BLADDER IRRIGATED. LONG CATHETER HAD 1625 CC OF LIGHT LEAH URINE. 200CC OF NS WAS ADMINISTERED THROUGH LONG CATHETER FOR IRRIGATION. PATIENT TOLERATED ACTIVITY WELL. ALL NEEDS MET AT THIS TIME. WILL CONTINUE TO MONITOR.
--- NOTE | 2017-08-10 11:33 | NUR ---
ADMINISTERED SCHEDULED MEDICATIONS. IV INFUSING WELL WITH NO S/S OF INFILTRATION. PT IS SLEEPING AND EASILY AROUSABLE WITH VOICE. PT HAD BIPAP ON WITH RR OF 15. WILL CONTINUE TO MONITOR.
[2017-08-10 12:00] VITALS: BP 135/74
--- NOTE | 2017-08-10 12:03 | NUR ---
RERMOVED PT FROM BIPAP AND PLACED ON 4LPM OXYMISER PT AWAKE ALERT
--- NOTE | 2017-08-10 14:15 | NUR ---
PATIENT C/O OF MILD TIGHTNESS PAIN AND HEADACHE AND REQUESTED TYLENOL 650 MG PO. WILL REASSESS IN ONE HOUR.
[2017-08-10] MEDS: ACETAMINOPHEN 325 MG TAB PO PRN (14:16)
--- NOTE | 2017-08-10 14:26 | NUR ---
08/10/17 RD FOLLOW UP COMPLETED PLEASE REFER TO NUTRITION PROGRESS NOTE UNDER CARE ACTIVITY FOR ESTIMATED NUTRITION NEEDS. RD RECOMMENDATIONS: 1. CONTINUE CARDIAC CCHO 60 GM DIET. CONTINUE TO ASSESS PO ITNKAE AND DIET TOLERANCE 2. DIEATRY GUIDELINES MATERIALS LEFT BY BEDSIDE - PT WANTED VISIT TO BE SHORT / WAS TIRED; REVIEW NEXT F/U. 3. RD TO FOLLOW-UP 2-3 DAYS, HIGH RISK MARU SPICER MBA, RD
--- NOTE | 2017-08-10 15:30 | NUR ---
BLADDER IRRIGATED. LONG CATHETER HAD 575 CC OF LIGHT LEAH URINE. 200CC OF NS WAS ADMINISTERED THROUGH LONG CATHETER FOR IRRIGATION. PATIENT TOLERATED ACTIVITY WELL. ALL NEEDS MET AT THIS TIME. WILL CONTINUE TO MONITOR.
--- NOTE | 2017-08-10 15:35 | NUR ---
RT AT BEDSIDE
[2017-08-10 16:00] VITALS: BP 138/75
--- NOTE | 2017-08-10 16:25 | NUR ---
PT BEING SEEN BY DR. Ni GIFFORD. PATIENT HAS FAMILY AT BEDSIDE. PT TAKEN OFF BIPAP AND APPLIED O2 @ 4L VIA OXIMIZER. PATIENT SHOWS NO S/S OF ACUTE DISTRESS AT THIS TIME. WILL CONTINUE TO MONITOR.
--- NOTE | 2017-08-10 16:35 | NUR ---
PT REMOVED FROM BIPAP AND PLACED ON OXYMISER AT 4LPM PT AWAKE ALERT VISITING WITH FAMILY EXPLAINED YO PT THAT SHE NEEDS TO USE THE BIPAP MACHINE TONIGHT WILL ALSO PASS ON IN REPORT
--- NOTE | 2017-08-10 17:20 | NUR ---
PATIENT C/O CHEST TIGHTNESS 6/10 PAIN. ADMINISTERED MORPHINE 2 MG IVP AND SCHEDULED MEDICATIONS. PATIENT SHOWS NO S/S OF ACUTE DISTRESS ON O2 @ 4L VIA OXIMIZER. PATIENT TALKING ON PHONE WIT FAMILY. WILL CONTINUE TO MONITOR.
--- NOTE | 2017-08-10 19:10 | NUR ---
RECEIVED REPORT AT BEDSIDE FROM DAY SHIFT RN. PT A/OX4 ON 4L O2 VIA OXYMIZER. BIPAP AT BEDSIDE, ENCOURAGED PT TO USE BIPAP AND EDUCATED ON THE BENEFITS AND RISKS OF USING/NOT USING BIPAP, PT STATES SHE HAS USED IT ALL DAY LONG AND SHE JUST TOOK IT OFF. PT HAS A 22G IV TO LEFT FOREARM, SALINE LOCKED. SKIN INTACT. LONG CATHETER IN PLACE WITH DARK URINE AND PINK/RED SEDIMENTS. SAFETY PRECAUTIONS IN PLACE. UPDATED BOARD. VITAL SIGNS WITHIN NORMAL LIMITS. PT IN STABLE CONDITION, NO SIGNS OF DISTRESS NOTED. BED IN LOW POSITION, CALL LIGHT WITHIN REACH. WILL CONTINUE TO MONITOR.
--- NOTE | 2017-08-10 19:40 | NUR ---
IRRIGATED BLADDER, PT TOLERATED WELL.
[2017-08-10 20:00] VITALS: BP 157/81
--- NOTE | 2017-08-10 21:20 | NUR ---
PT TOOK HERSELF OFF BIPAP, ON PHONE AND EATING. NO DISTRESS NOTED. ASKED PT IF SHE WANTED TO PUT BIPAP ON AGAIN, SHE SAID SHE WOULD TRY AFTER SHE IS DONE. RE-EDUCATED PT OF IMPORTANCE OF USE AND FUNCTIONS OF BIPAP FOR HER HEALTH, PT STATES SHE UNDERSTANDS AND FEELS HERSELF GETTING BETTER. SHE IS WILLING TO TRY BIPAP AGAIN LATER. RNPAULA INFORMED OF PT'S STATUS.
--- NOTE | 2017-08-10 21:40 | NUR ---
ADMINISTERED SCHEDULED MEDICATION AND MORPHINE FOR PAIN (CHEST TIGHTNESS), PT TOLERATED WELL. PT IN STABLE CONDITION, NO SIGNS OF DISTRESS NOTED. BED IN LOW POSITION, CALL LIGHT WITHIN REACH. WILL CONTINUE TO MONITOR.
--- NOTE | 2017-08-10 23:20 | NUR ---
ADMINISTERED SCHEDULED MEDICATION, PT TOLERATED WELL. VITAL SIGNS WITHIN NORMAL LIMITS. PT IN STABLE CONDITION, NO SIGNS OF DISTRESS NOTED. BED IN LOW POSITION, CALL LIGHT WITHIN REACH. WILL CONTINUE TO MONITOR.
--- NOTE | 2017-08-10 23:30 | NUR ---
IRRIGATED BLADDER WITH 200ML, PT TOLERATED WELL. 200ML CAME OUT INTO LONG, PINK WITH SEDIMENTS.
--- NOTE | 2017-08-10 23:42 | NUR ---
PT RETURNED TO BIPAP ORDERED. HHN TX GIVEN VIA INLINE, BREATH SOUNDS DIMINISHED BILATERALLY, NO ADVERSE EFFECTS NOTED. BIPAP ALARMS ON AND AUDIBLE.
[2017-08-11] VITALS: BP 141/75
--- NOTE | 2017-08-11 03:30 | NUR ---
IRRIGATED BLADDER, PT TOLERATED WELL. IRRIGATION CAME OUT DARK PINK WITH SEDIMENTS AND ONE CLOT.
[2017-08-11] MEDS: ALBUTEROL SULFATE/IPRATROPIU 3 ML SOL IH SCH ×6 (03:47→22:31)
[2017-08-11 05:47] VITALS: BP 144/81
--- NOTE | 2017-08-11 05:47 | NUR ---
PT OFF BIPAP, RETURNED TO 5 L/M OXYMIZER BY PAULA CHUN.
[2017-08-11] MEDS: methylPREDNISolone SS 125 MG/2 ML VIAL IVP SCH ×2 (06:26→12:34)
[2017-08-11] MEDS: BUDESONIDE 0.5 MG/2 ML NEBU INH SCH ×2 (06:50→19:04)
--- NOTE | 2017-08-11 06:55 | NUR ---
RCV'D PT ON 4 L OXIMIZER. HHN TX GIVEN. PT REFUSING TO WEAR BIPAP. EXPLAINED THE IMPORTANCE AND BENEFIT OF USING IT BUT PT SAID SHE WANTS TO SLEEP AND NOT HAVE IT ON. SPO2 96% HR 70 BS DIMINISHED. WILL CONTINUE TO MONITOR.
[2017-08-11 06:56] LABS: BASOPHILS # (AUTO) 0.1 K/uL (0.00-0.22); BASOPHILS % (AUTO) 0.4 % (0.0-2.0); HEMATOCRIT 35.8 % (36-48); HEMOGLOBIN 11.7 g/dL (12.0-16.0); LYMPHOCYTES # (AUTO) 1.3 K/uL (2.5-16.5); LYMPHOCYTES % (AUTO) 9.3 % (20.5-51.1); MEAN CORPUSCULAR HEMOGLOBIN 27 pg (27-31); MEAN CORPUSCULAR HGB CONC 33 g/dL (33-37); MEAN CORPUSCULAR VOLUME 83 fL (80-94); MONOCYTES # (AUTO) 0.9 K/uL (0.8-1.0); MONOCYTES % (AUTO) 6.5 % (1.7-9.3); NEUTROPHILS # (AUTO) 11.8 K/uL (1.8-7.7); NEUTROPHILS % (AUTO) 83.8 % (42.2-75.2); PLATELET COUNT (AUTO) 222 K/uL (140-450); RED BLOOD CELL COUNT(AUTO) 4.34 MIL/uL (4.20-5.40); RED CELL DISTRIBUTION WIDTH 14.6 % (11.6-13.7)
[2017-08-11] MEDS: INSULIN LISPRO SLIDING SCALE 100 UNITS/ML VIAL SUBQ PRN ×2 (06:57→17:51)
[2017-08-11] MEDS: BLOOD GLUCOSE MONITORING 1 DEV DEV FS SCH ×2 (06:57→17:14)
[2017-08-11 07:12] LABS: MAGNESIUM 2.3 mg/dL (1.8-2.4)
[2017-08-11 07:13] LABS: ANION GAP 8.3 (8-16); CARBON DIOXIDE 38.8 mmol/L (21-32); POTASSIUM 4.1 mmol/L (3.5-5.1)
--- NOTE | 2017-08-11 07:30 | NUR ---
RECEIVED REPORT AT BEDSIDE FROM UPHOLSTERER APPRENTICE RN. PT A/OX4, ON 4L O2 VIA OXYMIZER. IV 22G NOTED TO LEFT FOREARM, SALINE LOCKED. SKIN INTACT. LONG CATHETER IN PLACE WITH DARK LEAH URINE AND SEDIMENTS. SAFETY PRECAUTIONS IN PLACE. UPDATED BOARD. NO SIGNS OF DISTRESS NOTED. BED IN LOW POSITION, CALL LIGHT WITHIN REACH. WILL CONTINUE TO MONITOR.
--- NOTE | 2017-08-11 07:31 | NUR ---
ENDORSED PT TO DAY SHIFT RN FOR CONTINUITY OF CARE, PT IN STABLE CONDITION.
[2017-08-11 08:00] VITALS: BP 141/75
[2017-08-11 08:07] LABS: WHITE BLOOD COUNT (AUTO) 14.1 K/uL (4.8-10.8)
--- NOTE | 2017-08-11 08:40 | NUR ---
BIPAP AT BEDSIDE, ENCOURAGED PT TO USE BIPAP WHEN SHE WANT TO GO SLEEP AND EDUCATED ON THE BENEFITS AND RISKS OF USING/NOT USING BIPAP.
--- NOTE | 2017-08-11 09:00 | NUR ---
IRRIGATED LONG CATH WITH 200ML STERIL WATER. PT TOLERATED WELL. URINE IS ORANGE WITH SOME WHITE SEDIMENTS.
[2017-08-11] MEDS: ASPIRIN 325 MG TAB PO SCH (09:13)
[2017-08-11] MEDS: CARVEDILOL 3.125 MG TAB PO SCH (09:13)
[2017-08-11] MEDS: FUROSEMIDE 40 MG/4 ML VIAL IVP SCH ×2 (09:14→21:39)
[2017-08-11] MEDS: PROMETH/CODEINE 6.25-10MG/5ML 5 ML UDC PO PRN ×2 (09:32→19:45)
--- NOTE | 2017-08-11 11:01 | NUR ---
WENT TO GIVE PT BREATHING TX. PT WAS ROOM AIR AND TOOK OFF HER OXIMIZER. CALLED ADIEL SOLITARIO AND CAME TO ASSESS PT. PT IS BACK ON OXIMIZER. ASKED PT IF SHE WANTES TO WEAR HER BIPAP. PT SAID OK IN A VERY RUDE WAY. BOYFRIEND AND ADIEL SOLITARIO AT BEDSIDE. PUT ON BIPAP AND BEFORE ITS ALL THE WAY IN SHE TOOK IT OFF AND SAID I DONT WANT IT. BIPAP IS OFF. CHARGE NURSE DANIEL DUMONT. HHN TX OF [place] GIVEN. OXIMIZER AT 4 L IS BACK ON.
--- NOTE | 2017-08-11 11:10 | NUR ---
PLACED PT ON BIPAP AFTER HHN TX. SAME SETTINGS. BOYFRIEND AT BEDSIDE.
[2017-08-11 12:00] VITALS: BP 150/93
--- NOTE | 2017-08-11 12:45 | NUR ---
GOT A CALL FROM CHARGE NURSE DANIEL THAT BIPAP IS BEEPING. WENT TO PT ROOM WITH RT BETHANY AND PT HAD HER MASK OFF. BIPAP ON STANDBY BY PT REQUEST. OXIMIZER AT 4 L IS BACK ON. RN DANIEL AWARE .
--- NOTE | 2017-08-11 12:48 | NUR ---
FAXED CONCURRENT REVIEW TO [facility] [phone] PHONE KAREN [phone]
--- NOTE | 2017-08-11 13:10 | NUR ---
IRRIGATED LONG CATH WITH 200ML STERIL WATER. PT TOLERATED WELL. URINE IS ORANGE WITH SOME WHITE SEDIMENTS AND SOME RED MUCOUS OR BLOOD CLOTS.
[2017-08-11] MEDS ORDERED: FLUCONAZOLE 100 MG TAB PO SCH (13:20)
--- NOTE | 2017-08-11 14:12 | NUR ---
DECRESED OXIMIZER TO 2 L. SPO2 92% RN KASSI DUMONT.
--- NOTE | 2017-08-11 15:22 | NUR ---
PT REFUSED HHN TX. SAID SHE WANTS TO SLEEP. PT KEEPS TAKING HER OXIMIZER OFF. PUT IT BACK ON .
--- NOTE | 2017-08-11 15:30 | NUR ---
RECEIVED CALL BACK FROM DR ALATORRE. CANCEL CT ABD DUE LARGE SIZE OF THE PT. DR RIVAS RENAL US.
--- NOTE | 2017-08-11 15:40 | NUR ---
RECEIVED ORDER FOR HOME O2. SPOKE WITH KAREN FROM [facility] AND SHE SAID TO FAX TO [facility]. I FAXED HER THE ORDER. I SPOKE WITH NICOLAS FROM [facility] AND FAXED THE ORDER, H&P AND FACE SHEET TO HIM AT [phone] PHONE [phone].
[2017-08-11 16:00] VITALS: BP 153/68
--- NOTE | 2017-08-11 17:00 | NUR ---
LONG BAG IS DARK LEAH WITH SEDIMENTS AND RED MUCOUS.
[2017-08-11] MEDS: metroNIDAZOLE 500 MG TAB PO SCH (17:15)
[2017-08-11] MEDS: MORPHINE SULFATE 2 MG/ML SYR IVP PRN ×2 (17:33→21:39)
--- NOTE | 2017-08-11 18:00 | NUR ---
IRRIGATED LONG CATH WITH 200ML STERIL WATER. PT TOLERATED WELL. URINE IS ORANGE WITH SOME WHITE SEDIMENTS AND SOME RED MUCOUS OR BLOOD CLOTS.
--- NOTE | 2017-08-11 19:30 | NUR ---
ENDORSED PT TO DAY SHIFT RN FOR CONTINUITY OF CARE, PT IN STABLE CONDITION.
--- NOTE | 2017-08-11 19:31 | NUR ---
RECEIVED REPORT FROM DAY NURSE KASSI RN, PT IN STABLE CONDITION. NO S/S OF DISTRESS NOTED. PT IS AAOX4, ON 2L O2 VIA OXYMIZER. SKIN IS INTACT. PITTING EDEMA NOTED ON BLE AND EDEMA ON BUE. IV TO L FA 22G PATENT AND INTACT. SKIN IS WARM AND DRY TO TOUCH. LONG CATHETER DRAINING URINE VIA GRAVITY, URINE IS DARK, LEAH BROWN. NO RED BLOOD NOTED. INITIAL ASSESSMENT COMPLETED. PLAN OF CARE DISCUSSED WITH PT, VERBALIZED UNDERSTANDING ALL SAFETY PRECAUTIONS MET, CALL LIGHT WITHIN REACH WILL CONTINUE TO MONITOR
[2017-08-11 20:00] VITALS: BP 160/77
--- NOTE | 2017-08-11 21:39 | NUR ---
PT GIVEN LASIX AND MORPHINE AT THIS TIME. PT C/O 10/10 CHEST PAIN, TIGHTNESS DUE TO COUGHING. PT TOLERATED WELL, ALL SAFETY PRECAUTIONS MET, CALL LIGHT WITHIN REACH, WILL CONTINUE TO MONITOR
--- NOTE | 2017-08-11 22:00 | NUR ---
PT LONG CATHETER IRRIGATION WITH 200 ML OF STERILE WATER PER MD ORDERS
[2017-08-12] VITALS: BP 139/77
--- NOTE | 2017-08-12 02:00 | NUR ---
LONG CATHETER IRRIGATED WITH 200 ML OF STERILE WATER PER MD ORDERS. LONG CATHETER DRAINING DARK LEAH BROWN URINE, URINE HAS STRONG SMELL, SEDIMENT NOTED IN LONG TUBING. NO RED BLOOD SEEN AT THIS TIME
[2017-08-12] MEDS: MORPHINE SULFATE 2 MG/ML SYR IVP PRN ×4 (02:58→14:20)
--- NOTE | 2017-08-12 02:59 | NUR ---
PT TOOK OFF BI-PAP AT THIS TIME AND IS REFUSING TO WEAR IT. OXYMIZER IS ON
[2017-08-12] MEDS: ALBUTEROL SULFATE/IPRATROPIU 3 ML SOL IH SCH ×4 (03:00→15:00)
--- NOTE | 2017-08-12 03:30 | NUR ---
PT IS OFF OF THE BIPAP, AND ON HER STOMACH IN BED, REFUSING THE TX HHN. PT S NURSE NOTIFIED, AND PT IS NOT IN ANY RESP DISTRESS
[2017-08-12 04:00] VITALS: BP 158/90
[2017-08-12] MEDS: ACETAMINOPHEN 325 MG TAB PO PRN (05:40)
[2017-08-12] MEDS: BLOOD GLUCOSE MONITORING 1 DEV DEV FS SCH ×2 (06:38→16:37)
[2017-08-12] MEDS: INSULIN LISPRO SLIDING SCALE 100 UNITS/ML VIAL SUBQ PRN ×2 (06:40→16:45)
[2017-08-12 06:52] LABS: HEMATOCRIT 36.5 % (36-48); HEMOGLOBIN 12.1 g/dL (12.0-16.0); MEAN CORPUSCULAR HEMOGLOBIN 27 pg (27-31); MEAN CORPUSCULAR HGB CONC 33 g/dL (33-37); MEAN CORPUSCULAR VOLUME 81 fL (80-94); PLATELET COUNT (AUTO) 276 K/uL (140-450); RED CELL DISTRIBUTION WIDTH 14.3 % (11.6-13.7); WHITE BLOOD COUNT (AUTO) 15.8 K/uL (4.8-10.8)
[2017-08-12 07:03] LABS: ANION GAP 9.2 (8-16); CARBON DIOXIDE 37.7 mmol/L (21-32); CREATININE 0.9 mg/dL (0.6-1.3); POTASSIUM 3.9 mmol/L (3.5-5.1)
[2017-08-12 07:09] LABS: MAGNESIUM 2.2 mg/dL (1.8-2.4); PHOSPHORUS 3.4 mg/dL (2.5-4.9)
[2017-08-12] MEDS: BUDESONIDE 0.5 MG/2 ML NEBU INH SCH (07:09)
--- NOTE | 2017-08-12 07:20 | NUR ---
RECEIVED REPORT FROM PRODUCT MARKETING PROGRAMS MANAGER NURSE PILAR AT BEDSIDE FOR CONTINUITY OF CARE. PT IS AWAKE AND ORIENTED. INTRODUCED SELF AND UPDATED BOARD. PT DENIES PAIN. NO SIGNS OF DISTRESS. WILL CONTINUE TO MONITOR.
[2017-08-12 07:56] LABS: LYMPHOCYTES % (MANUAL) 10 % (20-46); MONOCYTES % (MANUAL) 7 % (5-12)
[2017-08-12 08:00] VITALS: BP 133/83
[2017-08-12] MEDS: FUROSEMIDE 40 MG/4 ML VIAL IVP SCH (08:29)
[2017-08-12] MEDS: ASPIRIN 325 MG TAB PO SCH (08:29)
[2017-08-12] MEDS: CARVEDILOL 3.125 MG TAB PO SCH (08:30)
[2017-08-12] MEDS: metroNIDAZOLE 500 MG TAB PO SCH ×3 (08:30→16:36)
[2017-08-12] MEDS ORDERED: methylPREDNISolone SS 40 MG/ML VIAL IVP SCH (09:00)
--- NOTE | 2017-08-12 10:00 | NUR ---
IRRIGATED LONG CATHETER WITH 200ML STERILE WATER. URINE IS CLOUDY WITH ODOR. NO HEMATURIA. PT TOLERATED WELL.
--- NOTE | 2017-08-12 10:25 | NUR ---
I call Patient's daughter Lisset Dunbar at cell to discuss and gather Patient's information. Per Lisset patient's health has declined and it's hard to assist her sometimes; she confirm that Patient gets a lot of family support but will help her if she gets assisted with home health during the day. Lisset confirm that she will assist patient with transportation back home when she is ready for discharge and will assist her making her follow up care appointments with primary health provider; She thank social science teacher and ended call.
--- NOTE | 2017-08-12 11:35 | NUR ---
SPOKE WITH PATIENT ABOUT HER ADDRESS. SHE LIVES AT [address] [place] [address] PHONE [phone] CELL [phone]. I INFORMED NICOLAS FROM [facility] WHO WILL BE HANDLING THE OXYGEN.
[2017-08-12] MEDS ORDERED: BENZ100C6 PO (11:40)
[2017-08-12] MEDS ORDERED: METR500T1 PO (11:40)
[2017-08-12] MEDS ORDERED: ALBU-71 IH (11:40)
[2017-08-12 12:00] VITALS: BP 139/74
--- NOTE | 2017-08-12 12:52 | NUR ---
PT SITTING IN THE BED RIGHT NOW, PER PT SHE WANTS HER LONG TO BE D/C BEFORE DISCHARGE
--- NOTE | 2017-08-12 13:11 | NUR ---
FAXED CONCURRENT REVIEW TO [facility] [place] [phone] PHONE KAREN [phone] SPOKE WITH NICOLAS THIS AM ABOUT OXYGEN. HE WILL CALL ME WITH ETA FOR OXYGEN.
--- NOTE | 2017-08-12 14:15 | NUR ---
CALLED DR. PACHECO. REPORTED THAT PT HAD ABD PAIN ON RIGHT SIDE. PAIN WAS UNRELIEVED BY MORPHINE 2MG IVP. RECEIVED ORDER TO GIVE ANOTHER MORPHINE 2MG IVP.
--- NOTE | 2017-08-12 15:07 | NUR ---
RECEIVED A CALL FROM NICOLAS FROM [facility] ABOUT THE OXYGEN. HE SAID THAT THEY WILL DELIVER BOTH THE CONCENTRATOR AND THE PORTABLE O2 TO THE HOUSE AND TEACH THE FAMILY. FAMILY NOT SURE WHO WILL CORNER CUTTER THE PATIENT, BUT THAT FAMILY MEMBER WILL BRING THE PORTABLE O2 TO THE HOSPITAL. I SPOKE WITH KAREN ABOUT FAMILY CONCERN THAT PATIENT NEEDS MORE HELP. WE GOT AN ORDER FOR IN HOME SUPPORT SERVICES EVAL. FAXED ORDER TO [facility].
--- NOTE | 2017-08-12 15:35 | NUR ---
I attempted to contact Patient's daughter Lisset Dunbar at to discuss patient's referral for In-Home Support through [facility] [employer] after discharge from [facility]. Mrs. Dunbar was unavailable, reported brother that answer call; therefore I left a MSG with brother to have Lisset call rn social services back when available and ended call.
[2017-08-12 16:00] VITALS: BP 144/78
--- NOTE | 2017-08-12 17:19 | NUR ---
GAVE D/C FORMS, INSTRUCTIONS, LABS, RX, AND FOLLOW UP INSTRUCTIONS. PT VERBALIZED UNDERSTANDING AND SIGNED FORMS. PT STATED HER DAUGHTER WILL COME IN AN HOUR WITH CLOTHES AND PULL UPS FROM HOME. AWAITING FAMILY ARRIVAL FOR D/C.
--- NOTE | 2017-08-12 18:15 | NUR ---
PT D/C TO GO HOME WITH O2. DAUGHTER CAME TO PIGGYBACK CLERK PT. D/C LONG CATHETER. TIP INTACT. NO HEMATURIA. URINE OF 600ML NOTED, CLOUDY WITH SEDIMENTS AND STRONG ODOR. D/C IV CATHETER FROM LEFT FA. IV CATHETER TIP INTACT. APPLIED DRESSING AND PRESSURE TO SITE. NO BLEEDING NOTED. REMOVED ID BAND AND TELE MONITOR. PT CHANGED IN OWN CLOTHES AND LEFT WITH ALL PERSONAL BELONGINGS. LEFT UNIT VIA WHEELCHAIR ACCOMPANIED BY ORACLE PROGRAMMER AND DAUGHTER PT LEFT IN STABLE CONDITION.
--- NOTE | 2017-08-12 18:21 | NUR ---
PATIENT SWITCHED TO NASAL CANNULA 2L NC. SPO2 98 HEART RATE 88. PATIENT STABLE NO RESP DISTRESS.
--- NOTE | 2017-08-13 15:24 | NUR ---
CM NOTE DISCHARGE SUMMARY FAXED TO [facility] / FAX# [phone], ATTN: KAREN# [phone]
== END 2017-08-12 18:30 | disposition home or self-care (01) | DRG 133 ==
LOC: MED 11:58 → MTU 15:34
PROVIDERS: ADMIT Internal Medicine; ATTEND Internal Medicine
PROC: 5A09357 Assistance with Respiratory Ventilation, Less than 24 Consecutive Hours, Continuous Positive Airway Pressure (ICD-10-PCS; 2017-08-10)
PROC: 3E0234Z Introduction of Serum, Toxoid and Vaccine into Muscle, Percutaneous Approach (ICD-10-PCS; principal; 2017-08-12)
DX: J96.21 Acute and chronic respiratory failure with hypoxia (principal); I24.8 Other forms of acute ischemic heart disease; J44.0 Chronic obstructive pulmonary disease with (acute) lower respiratory infection; J45.901 Unspecified asthma with (acute) exacerbation; I50.9 Heart failure, unspecified; I11.0 Hypertensive heart disease with heart failure; E11.40 Type 2 diabetes mellitus with diabetic neuropathy, unspecified; E11.65 Type 2 diabetes mellitus with hyperglycemia; J44.1 Chronic obstructive pulmonary disease with (acute) exacerbation; E66.01 Morbid (severe) obesity due to excess calories; N76.0 Acute vaginitis; R31.0 Gross hematuria; G47.33 Obstructive sleep apnea (adult) (pediatric); J20.9 Acute bronchitis, unspecified; G47.36 Sleep related hypoventilation in conditions classified elsewhere; F15.10 Other stimulant abuse, uncomplicated; F17.210 Nicotine dependence, cigarettes, uncomplicated; Z68.45 Body mass index [BMI] 70 or greater, adult; Z23 Encounter for immunization; Z88.1 Allergy status to other antibiotic agents; Z91.19 Patient's noncompliance with other medical treatment and regimen
CPT/HCPCS: 36415; 36600; 51702; 71010; 76770; 80048; 80053; 81003; 82550; 82553; 82803; 82948; 83605; 83735; 83874; 83880; 84100; 84484; 85025; 85379; 85610; 85730; 87040; 87081; 87086; 90732; 93005; 93970; 94640; 94660; 96374; 96375; 97110; 97116; 97140; 97530; 99285; J1650; J1815; J1940; J2270; J2920; J2930; J7613; J7620; J7626; Q0092

== ENCOUNTER 2021-05-29 18:23 | Inpatient (IN) | payer OTHER ==
[~2021-05-29] VITALS: Ht 167.6 cm; Wt 218.6 kg
[2021-05-29 18:23] VITALS: BP 135/46
[~2021-05-29 18:23] MED LIST changes: +ALBU-71 IH; +ALBU0.0912 IH; +BECL0.0464 INH; +BENZ100C6 PO; -DILT60TA55 PO; +GABA300C PO; +LISI-486 PO; -LISI10TA11 PO; +METR500T1 PO; -ORE25 PO
--- NOTE | 2021-05-29 18:28 | NUR ---
BIBA BLS TO ER BED 9
--- NOTE | 2021-05-29 18:45 | NUR ---
50 Y/O FEMALE BIBA FROM HOME C/O R LOWER LEG PAIN, SWELLING, AND REDNESS X4 DAYS. LEG IS HOT TO TOUCH WITH BLISTERS AND SWOLLEN. PT ABLE TO WIGGLE TOES BUT DENIES SENSATION. CAP REFILL <3 SECONDS. PT REPORTS CHILLS BUT DENIES FEVER. PT ON 2L NC AT HOME. PT AMBULATES WITH WALKER AT HOME. PT A/O X4 WITH EVEN AND UNLABORED RESPIRATIONS. PT PLACED ON FOUNTAIN WORKER. PMH:HTN, DM, NEUROPATHY, COPD, CHF, SLEEP APNEA, BLOOD CLOTS MEDS:ELIQUIS ALLERGIES:PCN, '[facility] FAMILY
--- NOTE | 2021-05-29 19:02 | NUR ---
DR NDIAYE AT BEDSIDE EVALUATING PT
[2021-05-29] MEDS ORDERED: MORPHINE SULFATE 4 MG/ML SYR IVP ONE ×2 (19:15→22:10)
--- NOTE | 2021-05-29 19:16 | NUR ---
REPORT GIVEN TO WILLIAMS RN, TRANSFER OF CARE AT THIS TIME.
--- NOTE | 2021-05-29 19:17 | NUR ---
Report received from Eri CHUN for continuation of care. Pt resting in bed, locked and in lowest position, HOB elevated, side rail x 2 for pt safety. Pt a/o x 4 , rr even and unlabored, currently on 2L nc 98% this is pt's baseline. Noted redness , swelling and heat to right lower extremity spreading up towards groin area. Pt states the redness and swelling started approx 4 days ago. Pt states the pain has been getting progressively worse. Pt is currently afebrile but does state she had a fever yesterday. Pt c/o of chills. + sensation noted in right lower extremity , +movement noted . + BL pedal pulses. No acute distress noted. VSS.
--- NOTE | 2021-05-29 19:30 | NUR ---
BLOOD LABS AND CULTURES COLLECTED AND HANDED TO TRACEY LINDER.
--- NOTE | 2021-05-29 19:40 | NUR ---
PER ERMD 12 LEAD WAS DONE AND CAME BACK NSR AT 79 HR.
[2021-05-29 19:46] LABS: BASOPHILS # (AUTO) 0.1 K/uL (0.00-0.22); BASOPHILS % (AUTO) 0.4 % (0.0-2.0); EOSINOPHILS # (AUTO) 0.2 K/uL (0-0.4); EOSINOPHILS % (AUTO) 1.4 % (0.0-4.0); HEMATOCRIT 28.4 % (36-48); HEMOGLOBIN 9.1 g/dL (12.0-16.0); LYMPHOCYTES # (AUTO) 1.4 K/uL (2.5-16.5); LYMPHOCYTES % (AUTO) 10.5 % (20.5-51.1); MEAN CORPUSCULAR HEMOGLOBIN 28 pg (27-31); MEAN CORPUSCULAR HGB CONC 32 g/dL (33-37); MEAN CORPUSCULAR VOLUME 86.8 fL (80-94); MONOCYTES # (AUTO) 1.5 K/uL (0.8-1.0); MONOCYTES % (AUTO) 11.2 % (1.7-9.3); NEUTROPHILS # (AUTO) 10.3 K/uL (1.8-7.7); NEUTROPHILS % (AUTO) 76.5 % (42.2-75.2); PLATELET COUNT (AUTO) 263 K/uL (140-450); RED BLOOD CELL COUNT(AUTO) 3.27 MIL/uL (4.20-5.40); RED CELL DISTRIBUTION WIDTH 15.9 % (11.6-13.7); WHITE BLOOD COUNT (AUTO) 13.5 K/uL (4.8-10.8)
[2021-05-29 19:54] LABS: ANION GAP 13.8 (8-16); CARBON DIOXIDE 25.1 mmol/L (21-32); CREATININE 1.8 mg/dL (0.6-1.3); POTASSIUM 4.9 mmol/L (3.5-5.1)
--- NOTE | 2021-05-29 21:07 | NUR ---
ULTRASOUND AT BEDSIDE
[2021-05-29] MEDS ORDERED: VANCOMYCIN 1,000 MG in DEXTROSE 5% 250 ML IV ONE (21:40)
--- NOTE | 2021-05-29 21:40 | NUR ---
PT C/O 10/10 LEG PAIN S/P ULTRASOUND - ERMD MADE AWARE .
--- NOTE | 2021-05-29 21:55 | NUR ---
EDMAR W/ BOBBY FROM LAB - STATES THEY WILL USE THE BLOOD CULTURES DRAWN [id number]
[2021-05-29] MEDS ORDERED: VANCOMYCIN 1,000 MG VIAL ONE (21:57)
--- NOTE | 2021-05-29 22:00 | NUR ---
PER PT'S AUTHORIZATION SPOKE W/ DAUGHTER KATJA UPDATED HER ON PT STATUS. WILL UPDATE HER IF THERE IS ANY CHANGE OF STATUS AT [phone]
--- NOTE | 2021-05-29 22:06 | NUR ---
PER BIJAL NDIAYE - ADMINISTER 4MG MORPHINE IVP X 1 DOSE AT THIS TIME.
[2021-05-29] MEDS ORDERED: MORPHINE SULFATE 4 MG/ML SYR ONE (22:09)
--- NOTE | 2021-05-29 23:30 | NUR ---
PATIENT OBSERVED SLEEPING IN BED IN NO ACUTE DISTRESS. PATIENT VERBALIZED SHE WAS IN NO PAIN AT THE MOMENT. BREATHING VIA NC AT 2L/MIN WITH NO SOB NOTED. SAFETY MEASURES IN PLACE, WILL CONTINUE WITH POC.
[2021-05-29] MEDS ORDERED: VANCOMYCIN PER PHARMACY MC PRN (23:55)
[2021-05-29] MEDS: NACL 0.9% 1,000 ML IV SCH (23:55)
--- NOTE | 2021-05-30 00:30 | NUR ---
REPORT PROVIDED TO [facility] NURSE GENE PEDERSEN FOR TRANSFER OF CARE.
--- NOTE | 2021-05-30 00:42 | NUR ---
Patient will be admitted to care of DR. MILLER. Admited to TELEMETRY. Will go to room. Belongings list completed. Report to .
--- NOTE | 2021-05-30 01:40 | NUR ---
ADMITTED FROM ER TO TELE UNIT WITH CHIEF COMPLAINT of PAIN RIGHT LOWER EXTREMITY. 50 Y/O FEMALE, COOPERATIVE, ALERT, AWAKE, ORIENTED X 4, OBESE. ON OXYGEN 2L NC, RESPIRATIONS EVEN AND UNLABORED. IV SL LOCKED L HAND G24. PATENT AND INTACT. RLE WITH REDNESS AND SWELLING NOTED. ON CARDIAC DIET. PATIENT STATED SHE USES WALKER TO AMBULATE AT HOME. PATIENT STATED SHE WANTS F/C INSERTED. WILL INFORM MD PER PATIENT REQUEST. HEAD TO TOE ASSESSMENT COMPLETED WITH CHARGE NURSE NIYAH. SKIN IS INTACT. FALL RISK. SAFETY PRECAUTIONS IN PLACE. EDUCATED PATIENT ABOUT MEDICATIONS AND SIDE EFFECTS. PATIENT VERBALIZED UNDERSTANDING. ORIENTED TO CALL LIGHT, BED, PHONE, TELEVISION, BATHROOM, SMOKING POLICY, VISITING HOURS, PROCEDURES. ID BRACELET ON. BELONGINGS LIST CHECKED.
[2021-05-30] MEDS: NACL 0.9% 1,000 ML IV SCH (03:31)
--- NOTE | 2021-05-30 03:40 | NUR ---
CHECKED PATIENT. STABLE AND SLEEPING COMFORTABLY. CHEST RISING AND FALLING. NO SYMPTOMS OF ACUTE RESPIRATORY DISTRESS NOTED AT THIS TIME. ALL SAFETY MEASURES IN PLACE. CALL LIGHT WITHIN REACH. WILL CONTINUE TO MONITOR.
[2021-05-30 04:00] VITALS: BP 129/65
--- NOTE | 2021-05-30 05:00 | NUR ---
PAGED AGAIN DR. ONOFRE TO VERIFY ROCEPHIN ORDER, PATIENT IS ALLERGIC TO PCN AND AMOXICILLIN. PATIENT STATED SHE GETS SOB WITH THESE MEDICATIONS, ALSO TO VERIFY ORDER FOR HEPARIN THAT WAS ORDERED IVP 1 8 HRS.
--- NOTE | 2021-05-30 05:05 | NUR ---
DR. ONOFRE INFORMED REGARDING ISSUES ON PATIENT MEDICATION. ORDERED BENADRYL 25 MG IVP BEFORE GIVING ROCEPHIN AND SEE OUTCOME AFTER ONE DOSE AND TO CHANGE HEPARIN IVP TO SUB-Q.
[2021-05-30] MEDS ORDERED: cefTRIAXone 1,000 MG VIAL ONE (05:45)
--- NOTE | 2021-05-30 05:58 | NUR ---
BENADRYL 25 MG IVP ADMINISTERED BY CN. NIYAH
[2021-05-30] MEDS: MORPHINE SULFATE 2 MG/ML SYR IVP PRN ×4 (06:01→21:53)
--- NOTE | 2021-05-30 06:01 | NUR ---
ROCEPHIN 1 GRAM IVPB ADMINISTERED BY CHARGE NURSE NIYAH.
[2021-05-30 06:30] LABS: ALBUMIN 2.4 g/dL (3.4-5.0); ANION GAP 11.8 (8-16); CARBON DIOXIDE 27.9 mmol/L (21-32); CREATININE 1.6 mg/dL (0.6-1.3); MAGNESIUM 2.3 mg/dL (1.8-2.4); POTASSIUM 4.7 mmol/L (3.5-5.1); TOTAL BILIRUBIN 0.7 mg/dL (0.0-1.0)
[2021-05-30 06:32] LABS: BASOPHILS % (AUTO) 0.4 % (0.0-2.0); EOSINOPHILS # (AUTO) 0.2 K/uL (0-0.4); EOSINOPHILS % (AUTO) 1.5 % (0.0-4.0); HEMATOCRIT 25.2 % (36-48); HEMOGLOBIN 8.2 g/dL (12.0-16.0); LYMPHOCYTES # (AUTO) 1.2 K/uL (2.5-16.5); LYMPHOCYTES % (AUTO) 10.7 % (20.5-51.1); MEAN CORPUSCULAR HEMOGLOBIN 28 pg (27-31); MEAN CORPUSCULAR HGB CONC 32 g/dL (33-37); MEAN CORPUSCULAR VOLUME 86.3 fL (80-94); MONOCYTES # (AUTO) 1.4 K/uL (0.8-1.0); MONOCYTES % (AUTO) 12.9 % (1.7-9.3); NEUTROPHILS # (AUTO) 8.3 K/uL (1.8-7.7); NEUTROPHILS % (AUTO) 74.5 % (42.2-75.2); PLATELET COUNT (AUTO) 245 K/uL (140-450); RED BLOOD CELL COUNT(AUTO) 2.92 MIL/uL (4.20-5.40); RED CELL DISTRIBUTION WIDTH 15.8 % (11.6-13.7); WHITE BLOOD COUNT (AUTO) 11.1 K/uL (4.8-10.8)
[2021-05-30] MEDS ORDERED: diphenhydrAMINE 50 MG/ML VIAL IVP SCH (06:45)
--- NOTE | 2021-05-30 06:55 | NUR ---
LONG CATHETER INSERTED BY CHARGE NURSE NIYAH. ROCEPHIN FINISHED, NO ALLERGIC REACTION NOTED.
--- NOTE | 2021-05-30 07:10 | NUR ---
ENDORSED PATIENT'S AZRA TO MORNING SHIFT NURSE. PATIENT STABLE. NO S/SX OF ACUTE RESPIRATORY DISTRESS. RESPIRATIONS EVEN AND UNLABORED. CALL LIGHT IN REACH. ALL SAFETY MEASURES IN PLACE. PATIENT STABLE.
[2021-05-30 08:00] VITALS: BP 143/34
--- NOTE | 2021-05-30 09:10 | NUR ---
PATIENT HAS BEEN SCREENED AND CATEGORIZED LOW NUTRITION RISK. PATIENT WILL BE SEEN WITHIN 7 DAYS OF ADMISSION. 06/05/[address]
--- NOTE | 2021-05-30 12:09 | NUR ---
DC PLANN[age] YRS OLD FEMALE PATIENT WAS ADMITTED FROM HOME WITH A DX OF RIGHT LOWER LEG CELLULITIS. PATIENT HAS A HX OF DM, COPD HTN, CHF AND METH USE. US VENOUS SHOWED NEGATIVE FOR DVT. CXR NEGATIVE. ADMINISTERED IVF, IV ABX VANCOMYCIN AND ROCEPHIN. DC PLAN TO GO HOME WHEN STABLE CM TO FOLLOW
[2021-05-30] MEDS ORDERED: ALBUTEROL HFA MDI 90 MCG/ACTUATION 8 GM INH PRN (12:45)
[2021-05-30] MEDS: VANCOMYCIN 2,000 MG in DEXTROSE 5% 500 ML IV SCH (12:46)
[2021-05-30] MEDS ORDERED: ALBUTEROL 0.083% 2.5 MG/3 ML NEBU INH PRN (12:50)
[2021-05-30] MEDS ORDERED: INSULIN LISPRO SLIDING SCALE 100 UNITS/ML VIAL SUBQ PRN (12:55)
[2021-05-30] MEDS ORDERED: DEXTROSE 50% 50 ML SYR IVP PRN (12:55)
[2021-05-30] MEDS ORDERED: NON-FORMULARY ITEM (Metformin HCl* (Glucophage Xr*) 500 MG) PO SCH (17:00)
[2021-05-30 17:30] VITALS: BP 132/41
[2021-05-30] MEDS: metFORMIN 500 MG TAB PO SCH (17:43)
[2021-05-30] MEDS: lisinopriL 10 MG TAB PO SCH (17:44)
[2021-05-30] MEDS: BLOOD GLUCOSE MONITORING 1 DEV DEV FS SCH ×2 (17:49→21:00)
[2021-05-30] MEDS ORDERED: ALBUTEROL 0.083% 2.5 MG/3 ML NEBU INH SCH (18:00)
[2021-05-30] MEDS: ACETAMINOPHEN 325 MG TAB PO PRN (18:47)
--- NOTE | 2021-05-30 19:20 | NUR ---
0720 AM: PATIENT IS RESTING IN BED QUIETLY. NO ADDITIONAL DISTRESS NOTED. BED IN LOW AND LOCK POSITION. BED ALARM ON. STABLE CONDITION AT THIS TIME WILL CONT TO MONITOR. 0800 AM: EXPLAINED PLAN OF CARE AND PATIENT VERBALIZED UNDERSTANDING. WILL CONT TO MONITOR. 1014AM: PATIENT WAS CRYING DUE TO PAIN TO THE RLE 8/10 BURNING SENSATION. GAVE MS IVP ORDER. 1100 AM: PATIENT CRYING DUE TO VQ SCAN PROCEDURE THAT REQUIRES HER TO BE SITTING AT THE SIDE OF THE BED. INCREASE PAIN TO THE RLE DUE TO CELLULITIS. 1200PM: PATIENT DID NOT WANT TO EAT LUNCH. NO APPETITE AT THIS TIME. PATIENT WANTS TO REST. 1400: PATIENT ASLEEP. STABLE CONDITION AT THIS TIME. 1604: C/O RLE BURNING PAIN. GAVE MS IVP ORDER FOR PAIN. 1800: PATIENT RESTING IN BED AWAKE TRYING TO EAT SOME OF HER DINNER. 1847: PATIENT CRYING AGAIN DUE TO BURNING PAIN TO THE RLE. GAVE TYLENOL DUE TO MORPHINE (MS) IVP IS NOT DUE YET. WILL ENDORSE TO NEXT SHIFT TO GIVE MORPHINE (MS) AT 8PM. 1920: PATIENT YELLING IN THE ROOM BECAUSE SHE WANTS TO GET UP D/T HER BUTTOCKS IS SORE. PATIENT IS 486LB AND NO INDICATION WHETHER SHES AMBULATORY. PATIENT STATES SHE USES A WALKER AT HOME. HOWEVER PATIENT WAS ADMITTED WITH RLE CELLULITIS AND UNABLE TO MOVE LEG TO SEVERE BURNING PAIN. ALLOW PATIENT TO SIT AT THE SIDE OF THE BED TO RELIEF PRESSURE FROM HER BUTTOCKS. SBAR ENDORSE TO THE NEXT SHIFT.
--- NOTE | 2021-05-30 19:30 | NUR ---
0900 AM: PATIENT ATE BREAKFAST 25%. FLUID PO 240 ML. 1300: ATE LUNCH 0%. FLUID PO 360 ML 1800: ATE DINNER 15%. FLUID INTAKE 240 ML.
[2021-05-30 20:00] VITALS: BP 132/57
--- NOTE | 2021-05-30 20:28 | NUR ---
PT DEIES SOB AT THIS TIME AND PT IS REFUSING NOC NIV AT THIS TIME PT WAS EDUCATED/ENCOURAGED TO UTILIZE NOC NIV AND PT CONTINUES TO POLITELY REFUSE AT THIS TIME PT WAS INFORMED SHOULD SHE CHANGE HER MIND WE CAN INITIATE NOC NIV WILL CONTINUE TO MONITOR
[2021-05-30] MEDS ORDERED: BECLOMETHASONE DIPROPIONATE INH SCH (21:00)
[2021-05-30] MEDS: GABAPENTIN 300 MG CAP PO SCH (21:40)
--- NOTE | 2021-05-30 22:33 | NUR ---
PT CONTINUES TO REFUSE NOC NIV WILL CONTINUE TO MONITOR
[2021-05-31] VITALS: BP 128/58
[2021-05-31] MEDS: MORPHINE SULFATE 2 MG/ML SYR IVP PRN ×3 (02:04→21:47)
--- NOTE | 2021-05-31 02:21 | NUR ---
PATIENT AWAKE CRYING STATES BOTH LEGS HURTING PATIENT IS VERY OBESE 50 YR OLD HAS CELLULITIS IN BOTH LEGS MEDICATED WITH MORPHINE 2 MG IVP 2153 AND 0204. NO OTHER C/O. PATIENT HAS A 20 GA IN UPPER RIGHT ARM GETTING N.S 100 HOUR. PATIENT HAS F/C DRAINING LEAH URINE.PATIENT HAS 02 ON 2 LITERS N/C. SLEEPING WELL AFTER RECEIVING THE MORPHINE 2 MG IVP. LUNGS ARE DIMINISH NO COUGH NOTED.
[2021-05-31 04:00] VITALS: BP 130/58
[2021-05-31] MEDS: NACL 0.9% 1,000 ML IV SCH ×4 (05:55→15:55)
--- NOTE | 2021-05-31 07:20 | NUR ---
RECEIVED PATIENT FROM LAND SALES AGENT NURSE FOR CONTINUITY OF CARE. PATIENT IS ON TELE. A/A/O X4. RESPIRATORY EVEN AND UNLABORED, ON 2L OXYGEN VIA NC. NO SIGN OF DISTRESS NOTED. SKIN WARM, DRY, NON DIAPHORETIC. IV ON LEFT UPPER ARM 20G, INTACT AND PATENT, IS INFUSING FLUID ORDER. + EDEMA, REDNESS, TENDER ON RLE. LONG IN PLACE, DARK YELLOW URINE NOTED. PATIENT ABLE TO MAKE NEED KNOWN. PLAN OF CARE DISCUSSED, PATIENT VERBALIZED UNDERSTANDING. PRECAUTION IN PLACE. CALL LIGHT WITHIN REACH. WILL CONTINUE TO MONITOR.
[2021-05-31] MEDS: BLOOD GLUCOSE MONITORING 1 DEV DEV FS SCH ×4 (07:56→21:59)
--- NOTE | 2021-05-31 07:56 | NUR ---
BLOOD SUGAR CHECK 119, NO INSULIN NEED TO COVER.
[2021-05-31 08:00] VITALS: BP 146/55
[2021-05-31] MEDS: VANCOMYCIN 2,000 MG in DEXTROSE 5% 500 ML IV SCH (09:24)
[2021-05-31] MEDS: GABAPENTIN 300 MG CAP PO SCH ×2 (09:24→21:40)
--- NOTE | 2021-05-31 09:24 | NUR ---
SCHEDULE MEDICATIONS GIVEN WITH EDUCATION, PATIENT VERBALIZED UNDERSTANDING. PATIENT TOLERATED WELL. NO SIGN OF DISTRESS NOTED. PRECAUTION IN PLACE. CALL LIGHT WITHIN REACH. WILL CONTINUE TO MONITOR.
[2021-05-31 12:00] VITALS: BP 128/59
--- NOTE | 2021-05-31 12:05 | NUR ---
BLOOD SUGAR CHECK 153, 2 UNITS INSULIN GIVEN WITH EDUCATION, PATIENT TOLERATED WELL. NO SIGN OF DISTRESS NOTED. PRECAUTION IN PLACE. CALL LIGHT WITHIN REACH. WILL CONTINUE TO MONITOR.
[2021-05-31] MEDS ORDERED: MORPHINE SULFATE 2 MG/ML SYR IVP SCH (12:30)
[2021-05-31] MEDS: FUROSEMIDE 100 MG/10 ML VIAL IV SCH ×2 (12:37→21:46)
--- NOTE | 2021-05-31 12:37 | NUR ---
PATIENT COMPLAINS PAIN 9/10 ON BILATERAL LOWER EXTREMITIES, MORPHINE ONCE TIME DOSE GIVEN WITH EDUCATION, PATIENT VERBALIZED UNDERSTANDING. PATIENT TOLERATED WELL. NO SIGN OF DISTRESS NOTED. PRECAUTION IN PLACE. CALL LIGHT WITHIN REACH. WILL CONTINUE TO MONITOR.
--- NOTE | 2021-05-31 14:00 | NUR ---
PATIENT IS SLEEPING, CHEST RISE AND FALL, AROUSABLE TO VOICE, NO SIGN OF DISTRESS NOTED. PRECAUTION IN PLACE, CALL LIGHT WITHIN REACH. WILL CONTINUE TO MONITOR.
--- NOTE | 2021-05-31 15:54 | NUR ---
PATIENT IS SLEEPING, CHEST RISE AND FALL NOTED, NO SIGN OF DISTRESS. PRECAUTION IN PLACE. CALL LIGHT WITHIN REACH. WILL CONTINUE TO MONITOR.
[2021-05-31 16:00] VITALS: BP 130/70
[2021-05-31] MEDS: metFORMIN 500 MG TAB PO SCH (16:58)
[2021-05-31] MEDS: lisinopriL 10 MG TAB PO SCH (16:58)
--- NOTE | 2021-05-31 16:58 | NUR ---
BLOOD SUGAR CHECK 141, NO INSULIN GIVEN TO COVER.
[2021-05-31] MEDS: ACETAMINOPHEN 325 MG TAB PO PRN (17:31)
--- NOTE | 2021-05-31 17:31 | NUR ---
TYLENOL PRN GIVEN FOR TEMP 100.4 WITH EDUCATION, PATIENT VERBALIZED UNDERSTANDING, COOLING MEASURE APPLIED. PATIENT TOLERATED WELL. NO SIGN OF DISTRESS. PRECAUTION IN PLACE. CALL LIGHT WITHIN REACH. WILL CONTINUE TO MONITOR.
--- NOTE | 2021-05-31 19:20 | NUR ---
ENDORSED PATIENT TO FLANGING MACHINE OPERATOR NURSE FOR CONTINUITY OF CARE. PATIENT IS STABLE.
[2021-05-31 20:00] VITALS: BP 114/50
[2021-05-31] MEDS: BUDESONIDE 0.5 MG/2 ML NEBU INH SCH (21:15)
--- NOTE | 2021-05-31 21:17 | NUR ---
2114 PATIENT REFUSED PULMICORT [id number] AT THIS TIME
[2021-06-01] VITALS: BP 128/60
[2021-06-01] MEDS: ACETAMINOPHEN 325 MG TAB PO PRN ×2 (01:35→11:27)
[2021-06-01] MEDS: BENZONATATE 100 MG CAPLF PO PRN ×2 (01:37→22:15)
[2021-06-01] MEDS: NACL 0.9% 1,000 ML IV SCH (01:38)
[2021-06-01] MEDS: MORPHINE SULFATE 2 MG/ML SYR IVP PRN ×5 (03:38→21:51)
[2021-06-01 04:00] VITALS: BP 120/61
[2021-06-01] MEDS: BLOOD GLUCOSE MONITORING 1 DEV DEV FS SCH ×4 (06:48→20:58)
[2021-06-01 06:57] LABS: ANION GAP 11.5 (8-16); CREATININE 1.1 mg/dL (0.6-1.3); POTASSIUM 4.5 mmol/L (3.5-5.1)
[2021-06-01 07:03] LABS: BASOPHILS # (AUTO) 0.1 K/uL (0.00-0.22); BASOPHILS % (AUTO) 0.7 % (0.0-2.0); EOSINOPHILS # (AUTO) 0.2 K/uL (0-0.4); EOSINOPHILS % (AUTO) 2.1 % (0.0-4.0); HEMATOCRIT 26.5 % (36-48); HEMOGLOBIN 8.6 g/dL (12.0-16.0); LYMPHOCYTES # (AUTO) 1.4 K/uL (2.5-16.5); LYMPHOCYTES % (AUTO) 14.9 % (20.5-51.1); MEAN CORPUSCULAR HEMOGLOBIN 28 pg (27-31); MEAN CORPUSCULAR HGB CONC 32 g/dL (33-37); MEAN CORPUSCULAR VOLUME 87.6 fL (80-94); MONOCYTES # (AUTO) 1.4 K/uL (0.8-1.0); MONOCYTES % (AUTO) 15.7 % (1.7-9.3); NEUTROPHILS # (AUTO) 6.1 K/uL (1.8-7.7); NEUTROPHILS % (AUTO) 66.6 % (42.2-75.2); PLATELET COUNT (AUTO) 355 K/uL (140-450); RED BLOOD CELL COUNT(AUTO) 3.03 MIL/uL (4.20-5.40); RED CELL DISTRIBUTION WIDTH 15.2 % (11.6-13.7); WHITE BLOOD COUNT (AUTO) 9.2 K/uL (4.8-10.8)
--- NOTE | 2021-06-01 07:38 | NUR ---
HANDOFF WITH ADIEL YUSUF. GEORGETTE MCCLURE RN
--- NOTE | 2021-06-01 07:47 | NUR ---
RECEIVED PATIENT FROM ROTARY RIG ENGINE OPERATOR NURSE FOR CONTINUITY OF CARE. PATIENT IS ON TELE. A/A/O X4. RESPIRATORY EVEN AND UNLABORED, ON 2L OXYGEN VIA NC. NO SIGN OF DISTRESS NOTED. SKIN WARM, DRY, NON DIAPHORETIC. IV ON LEFT UPPER ARM 20G, INTACT AND PATENT, IS INFUSING FLUID ORDER. + EDEMA, REDNESS, TENDER ON RLE. LONG IN PLACE, DARK YELLOW URINE NOTED. PATIENT ABLE TO MAKE NEED KNOWN. PLAN OF CARE DISCUSSED, PATIENT VERBALIZED UNDERSTANDING. PRECAUTION IN PLACE. CALL LIGHT WITHIN REACH.
[2021-06-01 08:00] VITALS: BP 131/65
[2021-06-01 08:07] LABS: FOLIC ACID 11.8 ng/mL (>3.0)
[2021-06-01] MEDS: BUDESONIDE 0.5 MG/2 ML NEBU INH SCH ×2 (08:27→19:12)
[2021-06-01] MEDS: GABAPENTIN 300 MG CAP PO SCH ×2 (08:39→21:49)
[2021-06-01] MEDS: FUROSEMIDE 100 MG/10 ML VIAL IV SCH ×2 (08:40→21:50)
--- NOTE | 2021-06-01 09:00 | NUR ---
PATIENT IN BED COMPLAINS ABOUT PAIN GOT MEDICATED PRN ORDER , MORNING MEDICATION GOT ADMINISTRATED TOLERATED WELL , NO SOB NOTED. ALL SAFETY MEASURES ON PLACE CALL LIGHT WITHIN REACH.
[2021-06-01] MEDS: VANCOMYCIN 2,000 MG in DEXTROSE 5% 500 ML IV SCH (10:39)
[2021-06-01 12:00] VITALS: BP 111/57
--- NOTE | 2021-06-01 12:08 | NUR ---
PATIENT IN BED COMPLAINED ABOUT PAIN GOT MEDICATED PRN ORDER, NO SOB NOTED. ALL SAFETY MEASURES ON PLACE CALL LIGHT WITHIN REACH.
--- NOTE | 2021-06-01 13:54 | NUR ---
PATIENT IN BED COMPLAINED ABOUT PAIN GOT MEDICATED PRN ORDER, NO SOB NOTED. ALL SAFETY MEASURES ON PLACE CALL LIGHT WITHIN REACH.
[2021-06-01 16:00] VITALS: BP 149/64
--- NOTE | 2021-06-01 16:15 | NUR ---
PATIENT IN BED NO COMPLAINS NO SOB NOTED. ALL SAFETY MEASURES ON PLACE CALL LIGHT WITHIN REACH
[2021-06-01] MEDS: metFORMIN 500 MG TAB PO SCH ×2 (17:22→17:40)
[2021-06-01] MEDS: lisinopriL 10 MG TAB PO SCH ×2 (17:22→17:40)
--- NOTE | 2021-06-01 17:45 | NUR ---
PATIENT IN BED COMPLAINED ABOUT PAIN GOT MEDICATED PRN ORDER, NO SOB NOTED. ALL SAFETY MEASURES ON PLACE CALL LIGHT WITHIN REACH.
--- NOTE | 2021-06-01 19:30 | NUR ---
REPORT GIVEN TO HUMAN SERVICES WORKER NURSE
--- NOTE | 2021-06-01 20:00 | NUR ---
RECEIVED PATIENT AWAKE AND ALERT IN BED. PATIENT RECEIVING 2L O2 VIA NC. NO SOB OR S/S OF DISTRESS NOTED AT THIS TIME. RIGHT LOWER EXTREMITY EDEMA AND ERYTHEMA NOTED. LONG CATH IN PLACE, DRAINING CLEAR AND YELLOW URINE. PT ON TELE MONITORING. BED LOWERED WITH CALL LIGHT WITHIN REACH. WILL CONTINUE TO MONITOR
--- NOTE | 2021-06-01 21:00 | NUR ---
PATIENT CLEANED. LINENS CHANGED. ASSISTED PATIENT TO REPOSITION FOR COMFORT
[2021-06-01 21:45] VITALS: BP 131/57
[2021-06-02] VITALS: BP 135/68
[2021-06-02] MEDS: MORPHINE SULFATE 2 MG/ML SYR IVP PRN ×4 (02:32→22:06)
--- NOTE | 2021-06-02 04:23 | NUR ---
PT ASLEEP IN BED AT THIS TIME. NO S/S OF DISTRESS NOTED
[2021-06-02 04:38] VITALS: BP 121/52
[2021-06-02] MEDS: ACETAMINOPHEN 325 MG TAB PO PRN (04:48)
[2021-06-02 06:34] LABS: BASOPHILS # (AUTO) 0.1 K/uL (0.00-0.22); BASOPHILS % (AUTO) 0.9 % (0.0-2.0); EOSINOPHILS # (AUTO) 0.2 K/uL (0-0.4); EOSINOPHILS % (AUTO) 2.2 % (0.0-4.0); HEMATOCRIT 26.1 % (36-48); HEMOGLOBIN 8.5 g/dL (12.0-16.0); LYMPHOCYTES # (AUTO) 1.4 K/uL (2.5-16.5); MEAN CORPUSCULAR HEMOGLOBIN 28 pg (27-31); MEAN CORPUSCULAR HGB CONC 33 g/dL (33-37); MEAN CORPUSCULAR VOLUME 86.9 fL (80-94); MONOCYTES # (AUTO) 1.1 K/uL (0.8-1.0); NEUTROPHILS # (AUTO) 6.2 K/uL (1.8-7.7); NEUTROPHILS % (AUTO) 68.9 % (42.2-75.2); PLATELET COUNT (AUTO) 368 K/uL (140-450)
[2021-06-02 06:50] LABS: ANION GAP 8.7 (8-16); CARBON DIOXIDE 34.6 mmol/L (21-32); CREATININE 0.9 mg/dL (0.6-1.3); POTASSIUM 4.3 mmol/L (3.5-5.1)
[2021-06-02] MEDS: BLOOD GLUCOSE MONITORING 1 DEV DEV FS SCH ×4 (06:58→20:40)
--- NOTE | 2021-06-02 07:36 | NUR ---
PATIENT REPORT GIVEN TO AM NURSE. PT ENDORSED IN STABLE CONDITION
[2021-06-02] MEDS: BUDESONIDE 0.5 MG/2 ML NEBU INH SCH ×2 (07:54→19:30)
[2021-06-02 08:00] VITALS: BP 139/58
--- NOTE | 2021-06-02 08:00 | NUR ---
RECEIVED REP[ORT FROM CORPORATE COMMUNICATIONS SPECIALIST FOR CONTINUITY OF CARE. PATIENT ALERT AWAKE ORIENTED X4. PATIENT IS MORBID OBESITY, ON 2L NASAL CANULA SATURATING 100%. NOT IN DISTRESS NOTED. ON MONITOR SHOWS SR. WITH HEPLOCK ON THE RIGHT FOREARM G 20 DRY AND INTACT. CALL LIGHT WITHIN REACH. NEEDS ATTENDED. WILL CONTINUE TO MONITOR.
[2021-06-02] MEDS: GABAPENTIN 300 MG CAP PO SCH ×2 (09:12→20:37)
[2021-06-02] MEDS: FUROSEMIDE 100 MG/10 ML VIAL IV SCH (09:14)
--- NOTE | 2021-06-02 10:30 | NUR ---
PATIENT ASSISTED TO THE BATHROOM ABLE TO WALK IN A SHORT DISTANCE, HAD BM X1 TO LARGE STOOL. PATIENT VERBALIZED THAT SHE FEELS BETTER AFTER THAT. STILL WITH SOB ON EXERTION. WITH LONG CATHETER TO MODERATE AMOUNT OF OUTPUT. WILL CONTINUE TO MONITOR.
[2021-06-02] MEDS: VANCOMYCIN 2,000 MG in DEXTROSE 5% 500 ML IV SCH (10:45)
[2021-06-02 12:00] VITALS: BP 129/40
[2021-06-02 16:00] VITALS: BP 119/60
[2021-06-02] MEDS ORDERED: lisinopriL 10 MG TAB PO SCH (17:00)
[2021-06-02] MEDS: FUROSEMIDE 40 MG TAB PO SCH (17:08)
[2021-06-02] MEDS: metFORMIN 500 MG TAB PO SCH (17:08)
--- NOTE | 2021-06-02 19:30 | NUR ---
REPORT GIVEN TO THE MAT REPAIRER FOR CONTINUITY OF CARE. IN STABLE CONDITION.
[2021-06-02 20:00] VITALS: BP 133/54
--- NOTE | 2021-06-02 20:49 | NUR ---
NOC NIV INITIATED (/ f14 30%) PT WAS EDUCATED/ENCOURAGED IN REGARDS OF NIV AND MASK PT APPEARS TO TO BE TOLERATING WELL AT THIS TIME
[2021-06-02] MEDS: ONDANSETRON 4 MG/2 ML VIAL IVP PRN (22:06)
--- NOTE | 2021-06-02 22:27 | NUR ---
PT FOUND SLEEPING ON NC PT WAS REPLACED ON NIV ALARMS REMAIN ON AND AUDIBLE BIPAP REMAINS PLUGGED INTO RED OUTLET W/ NO CHANGES TO SETTINGS AT THIS TIME WILL CONTINIUE TO MONITOR
[2021-06-03] MEDS: ONDANSETRON 4 MG/2 ML VIAL IVP PRN (03:32)
[2021-06-03] MEDS: MORPHINE SULFATE 2 MG/ML SYR IVP PRN ×2 (03:33→10:12)
[2021-06-03 04:00] VITALS: BP 108/54
[2021-06-03 06:12] LABS: BASOPHILS # (AUTO) 0.1 K/uL (0.00-0.22); BASOPHILS % (AUTO) 1.5 % (0.0-2.0); EOSINOPHILS # (AUTO) 0.2 K/uL (0-0.4); HEMATOCRIT 26.6 % (36-48); HEMOGLOBIN 8.6 g/dL (12.0-16.0); LYMPHOCYTES # (AUTO) 1.4 K/uL (2.5-16.5); LYMPHOCYTES % (AUTO) 15.9 % (20.5-51.1); MEAN CORPUSCULAR HEMOGLOBIN 28 pg (27-31); MEAN CORPUSCULAR HGB CONC 32 g/dL (33-37); MEAN CORPUSCULAR VOLUME 87.2 fL (80-94); MONOCYTES # (AUTO) 1.1 K/uL (0.8-1.0); MONOCYTES % (AUTO) 12.3 % (1.7-9.3); NEUTROPHILS # (AUTO) 6.1 K/uL (1.8-7.7); NEUTROPHILS % (AUTO) 68.3 % (42.2-75.2); PLATELET COUNT (AUTO) 380 K/uL (140-450); RED BLOOD CELL COUNT(AUTO) 3.05 MIL/uL (4.20-5.40)
[2021-06-03] MEDS: BLOOD GLUCOSE MONITORING 1 DEV DEV FS SCH ×2 (06:15→12:06)
[2021-06-03 06:46] LABS: ANION GAP 12.6 (8-16); CARBON DIOXIDE 32.8 mmol/L (21-32); POTASSIUM 4.4 mmol/L (3.5-5.1)
[2021-06-03] MEDS: BUDESONIDE 0.5 MG/2 ML NEBU INH SCH (07:12)
--- NOTE | 2021-06-03 07:20 | NUR ---
RECEIVED REPORT FROM SURVEILLANCE OBSERVER NURSE FOR CONTINUITY OF CARE. PATIENT IS IN BED SLEEPING AT THIS TIME. RESPIRATIONS ARE EVEN AND UNLABORED. PATIENT IS ALERT AND ORIENTED X4. SHE IS ABLE TO VERBALIZE HER NEEDS TO STAFF. ABD IS SOFT, NON-TENDER, AND NON-DISTENDED. SHE HAS FULL MOVEMENT TO ALL EXTREMITIES. PATIENT HAS IV TO RFA, 22G. IV IS PATIENT, INTACT, AND INFUSING. PATIENT HAS LONG CATHETER IN PLACE. LONG IS INTACT, PATENT, AND DRAINING YELLOW FLUID. SKIN IS INTACT, PATIENT HAS RIGHT LOWER EXTREMITY CELLULITIS. CALL LIGHT WITHIN REACH. BED IN LOWEST POSITION. ALL SAFETY MEASURES IN PLACE. WILL CONTINUE TO MONITOR.
[2021-06-03 08:00] VITALS: BP 138/82
--- NOTE | 2021-06-03 09:00 | NUR ---
PT IS STABLE. BREATHING IS UNLABORED. IV IS INTACT. PT DENIES PAIN AT THIS TIME. RIGHT LOWER EXTREMITY CELLULITIS, CLOSED AND REDDENED. WILL CONTINUE TO MONITOR.
[2021-06-03] MEDS ORDERED: LISI20TA29 PO (09:45)
[2021-06-03] MEDS ORDERED: FURO40TA9 PO (09:45)
[2021-06-03] MEDS ORDERED: DOXY-690 PO (09:45)
[2021-06-03] MEDS: GABAPENTIN 300 MG CAP PO SCH (10:02)
[2021-06-03] MEDS: FUROSEMIDE 40 MG TAB PO SCH (10:02)
[2021-06-03] MEDS: VANCOMYCIN 2,000 MG in DEXTROSE 5% 500 ML IV SCH (10:04)
--- NOTE | 2021-06-03 10:12 | NUR ---
PT STATES SHE HAS PAIN IN HER RIGHT LE AT A SCALE OF 8/10. PT WAS GIVEN MORPHINE FOR PAIN IVP. BP WAS 138/82 PRIOR TO ADMINISTRATION OF MEDICATION. WILL MONITOR PAIN.
--- NOTE | 2021-06-03 11:00 | NUR ---
TOOK PT OFF 2L O2 NC. MONITORING BREATHING AND O2 SAT IS 95%. NO RESPIRATORY DISTRESS NOTED ON RA. PT IS STABLE. WILL CONTINUE TO MONITOR.
--- NOTE | 2021-06-03 11:55 | NUR ---
RECEIVED VERBAL ORDER TO REMOVE OLNG CATHETER.
--- NOTE | 2021-06-03 12:00 | NUR ---
LONG CATHETER REMOVED PRIOR TO DISCHARGE. CATHETER INTACT FULLY. WILL WAIT FOR PT TO VOID PRIOR TO DISCHARGE.
--- NOTE | 2021-06-03 12:06 | NUR ---
BS READING IS 124. NO INSULIN COVERAGE NEEDED PER SLIDING SCALE.
--- NOTE | 2021-06-03 13:35 | NUR ---
PT HAS VOIDED TWICE NOW SINCE REMOVING THE LONG CATHETER. NO PAIN NOTED. PT AMBULATED TO THE RESTROOM WITH ASSISTANCE. WILL DISCHARGE PT SHORTLY.
[2021-06-03 13:38] VITALS: BP 138/82
--- NOTE | 2021-06-03 14:45 | NUR ---
DISCHARGE INSTRUCTIONS EXPLAINED, AND PATIENT VERBALIZED AN UNDERSTANDING OF ALL INFORMATION PROVIDED. PATIENT IS AWAKE AND ALERT. SHE IS ABLE TO AMBULATE. PATIENT IS CHANGING INTO HER OWN CLOTHING. IV REMOVED, AND BLEEDING WAS CONTROLLED. ID BAND REMOVED. VITAL SIGNS ARE STABLE. PATIENT IS ON ROOM AIR, WITH O2 SAT AT 100%. PATIENT IS WAITING FOR HER BROTHER TO COME AND PICK HER UP.
--- NOTE | 2021-06-03 15:00 | NUR ---
PATIENT HAS BEEN DISCHARGED. PATIENT'S BROTHER PICKED HER UP IN PRIVATE VEHICLE. PATIENT WHEELED OUT BY TONGUE CARRIER.
--- NOTE | 2021-06-04 17:36 | NUR ---
DC PLANNING CM CALLED AT PATIENT'S PCP MD LESTER VARELA TO MAKE A FOLLOW UP APPOINTMENT FOR PATIENT AFTER HER DISCHARGE. SPOKE TO CLINICAL DATA ANALYST WHO PROVIDED SCHEDULED APPOINTMENT FOR PATIENT ON 06/12/21 AT 10:30AM. LOCATION FOR APPOINTMENT IS [address] [place] [address] [address] [facility] [address]. SW INFORM PATIENT OF HIS SCHEDULED APPOINTMENT WITH ASSIGNED PCP WITH IN 7 DAYS OF HER DISCHARGE FROM [facility]. SW PROVIDED PATIENT WITH A NOTE LISTING TIME, DATE AND ADDRESS INFORMATION FOR HER FOLLOW UP APPOINTMENT. PATIENT AGREED TO ATTEND TO HIS APPOINTMENT AND THANK THIS BAIT DIGGER FOR INFORMATION.
== END 2021-06-03 15:20 | disposition home health service (06) | DRG 383 ==
LOC: MED 18:23 → MTU 23:56 → MMU 05-30 00:27
PROVIDERS: ADMIT Internal Medicine; ATTEND Internal Medicine
DX: L03.115 Cellulitis of right lower limb (principal); I50.33 Acute on chronic diastolic (congestive) heart failure; E44.1 Mild protein-calorie malnutrition; Z68.45 Body mass index [BMI] 70 or greater, adult; E88.09 Other disorders of plasma-protein metabolism, not elsewhere classified; E11.22 Type 2 diabetes mellitus with diabetic chronic kidney disease; D64.9 Anemia, unspecified; I13.0 Hypertensive heart and chronic kidney disease with heart failure and stage 1 through stage 4 chronic kidney disease, or unspecified chronic kidney disease; N18.9 Chronic kidney disease, unspecified; J44.9 Chronic obstructive pulmonary disease, unspecified; E66.01 Morbid (severe) obesity due to excess calories; G47.33 Obstructive sleep apnea (adult) (pediatric); Z71.3 Dietary counseling and surveillance; Z88.1 Allergy status to other antibiotic agents; Z88.0 Allergy status to penicillin; Z79.899 Other long term (current) drug therapy
CPT/HCPCS: 36415; 36600; 71045; 78582; 80048; 80053; 80202; 82607; 82728; 82746; 82803; 82948; 83036; 83540; 83735; 83880; 84484; 85025; 85379; 85651; 86140; 87040; 87081; 93005; 93971; 94640; 96365; 96366; 96375; 96376; 99285; J0696; J1200; J1644; J1815; J1940; J2270; J2405; J3370; J7060; J7626; Q0092

== ENCOUNTER 2022-01-07 19:20 | Observation (INO) | payer OTHER ==
[~2022-01-07] VITALS: Ht 167.6 cm; Wt 231.3 kg
[~2022-01-07 19:20] MED LIST changes: +DOXY-690 PO; +FURO40TA9 PO; -LISI-486 PO; +LISI20TA29 PO; +METF-1139 PO; -METF500T2 PO; -METR500T1 PO; -NAPR-1717 PO
[2022-01-07 19:25] VITALS: BP 93/40
[2022-01-07] MEDS ORDERED: NITROGLYCERIN 2% 1 GM PKT TP ONE (19:45)
[2022-01-07] MEDS ORDERED: ENOXAPARIN 120 MG/0.8 ML SYR SUBQ ONE (19:45)
[2022-01-07] MEDS ORDERED: MORPHINE SULFATE 4 MG/ML SYR IVP ONE ×2 (19:45→21:15)
[2022-01-07] MEDS ORDERED: FLUO40CA6 PO (20:14)
[2022-01-07] MEDS ORDERED: APIX5TAB4 PO (20:14)
[2022-01-07] MEDS ORDERED: GABA300C PO (20:14)
[2022-01-07] MEDS ORDERED: SIMV-30 PO (20:14)
[2022-01-07] MEDS ORDERED: POTA10TA75 PO (20:14)
[2022-01-07 20:18] LABS: BASOPHILS # (AUTO) 0.3 K/uL (0.00-0.22); BASOPHILS % (AUTO) 3.7 % (0.0-2.0); EOSINOPHILS # (AUTO) 0.3 K/uL (0-0.4); EOSINOPHILS % (AUTO) 3.5 % (0.0-4.0); HEMOGLOBIN 8.7 g/dL (12.0-16.0); LYMPHOCYTES # (AUTO) 1.1 K/uL (2.5-16.5); LYMPHOCYTES % (AUTO) 14.7 % (20.5-51.1); MEAN CORPUSCULAR HEMOGLOBIN 28 pg (27-31); MEAN CORPUSCULAR HGB CONC 32 g/dL (33-37); MEAN CORPUSCULAR VOLUME 85.1 fL (80-94); MONOCYTES # (AUTO) 0.8 K/uL (0.8-1.0); MONOCYTES % (AUTO) 9.8 % (1.7-9.3); NEUTROPHILS # (AUTO) 5.3 K/uL (1.8-7.7); NEUTROPHILS % (AUTO) 68.3 % (42.2-75.2); PLATELET COUNT (AUTO) 234 K/uL (140-450); RED BLOOD CELL COUNT(AUTO) 3.17 MIL/uL (4.20-5.40); RED CELL DISTRIBUTION WIDTH 16.4 % (11.6-13.7); WHITE BLOOD COUNT (AUTO) 7.7 K/uL (4.8-10.8)
[2022-01-07 20:37] LABS: ALBUMIN 3.9 g/dL (3.4-5.0); ANION GAP 12.1 (8-16); CARBON DIOXIDE 29.3 mmol/L (21-32); CREATININE 2.2 mg/dL (0.6-1.3); POTASSIUM 4.4 mmol/L (3.5-5.1); TOTAL BILIRUBIN 1.1 mg/dL (0.0-1.0)
[2022-01-07 20:55] LABS: CREATINE KINASE MB 0.8 ng/mL (0-3.6)
[2022-01-07 21:09] LABS: BILIRUBIN,URINE 2+ (NEGATIVE); BLOOD, URINE NEGATIVE (NEGATIVE); COLOR,URINE YELLOW (YELLOW); LEUKOCYTE ESTERASE ,URINE TRACE (NEGATIVE); NITRITE, URINE NEGATIVE (NEGATIVE); UGLUCOSE NEGATIVE (NEGATIVE)
[2022-01-07 21:12] LABS: APPEARANCE,URINE HAZY (CLEAR)
[2022-01-07 21:24] LABS: CALCIUM OXALATE CRYSTALS,UR 0-10 /HPF (None Seen); RBC,URINE NONE SEEN /HPF (0-5); WBC,URINE 0-5 /HPF (0-5)
[2022-01-07] MEDS ORDERED: ALPR2TAB1 PO (21:56)
[2022-01-07] MEDS ORDERED: INSULIN LISPRO SLIDING SCALE 100 UNITS/ML VIAL SUBQ PRN (22:20)
[2022-01-07] MEDS ORDERED: DEXTROSE 50% 50 ML SYR IVP PRN (22:20)
[2022-01-07] MEDS ORDERED: POTASSIUM CHLORIDE 10 MEQ TABER PO PRN (22:20)
[2022-01-07] MEDS ORDERED: MAG SULF 2000 MG/WATER PREMIX 50 ML IV PRN (22:20)
[2022-01-07] MEDS ORDERED: KCL 20 MEQ/WATER INJ PREMIX 200 ML IV PRN (22:20)
[2022-01-07] MEDS ORDERED: ACETAMINOPHEN 325 MG TAB PO PRN (22:20)
[2022-01-07] MEDS ORDERED: ONDANSETRON 4 MG/2 ML VIAL IVP PRN (22:20)
[2022-01-07] MEDS ORDERED: MORPHINE SULFATE 4 MG/ML SYR IVP PRN (22:20)
[2022-01-07] MEDS ORDERED: MAGNESIUM OXIDE 400 MG TAB PO PRN (22:20)
[2022-01-07 22:50] VITALS: BP 98/41
[2022-01-07] MEDS ORDERED: ALPRAZolam 0.5 MG TAB PO PRN (23:25)
[2022-01-08 04:00] VITALS: BP 118/41
[2022-01-08 06:06] LABS: BASOPHILS % (AUTO) 0.5 % (0.0-2.0); EOSINOPHILS # (AUTO) 0.2 K/uL (0-0.4); EOSINOPHILS % (AUTO) 3.4 % (0.0-4.0); HEMATOCRIT 26.5 % (36-48); HEMOGLOBIN 8.5 g/dL (12.0-16.0); LYMPHOCYTES # (AUTO) 1.9 K/uL (2.5-16.5); LYMPHOCYTES % (AUTO) 26.3 % (20.5-51.1); MEAN CORPUSCULAR HEMOGLOBIN 28 pg (27-31); MEAN CORPUSCULAR HGB CONC 32 g/dL (33-37); MONOCYTES % (AUTO) 14.6 % (1.7-9.3); NEUTROPHILS # (AUTO) 3.9 K/uL (1.8-7.7); NEUTROPHILS % (AUTO) 55.2 % (42.2-75.2); PLATELET COUNT (AUTO) 219 K/uL (140-450); RED BLOOD CELL COUNT(AUTO) 3.08 MIL/uL (4.20-5.40); RED CELL DISTRIBUTION WIDTH 16.8 % (11.6-13.7); WHITE BLOOD COUNT (AUTO) 7.1 K/uL (4.8-10.8)
[2022-01-08 06:07] LABS: ALBUMIN 3.7 g/dL (3.4-5.0); ANION GAP 10.5 (8-16); CARBON DIOXIDE 30.9 mmol/L (21-32); POTASSIUM 4.4 mmol/L (3.5-5.1); TOTAL BILIRUBIN 0.8 mg/dL (0.0-1.0)
[2022-01-08] MEDS: BLOOD GLUCOSE MONITORING 1 DEV DEV FS SCH ×3 (06:12→16:30)
[2022-01-08 08:00] VITALS: BP 109/53
[2022-01-08] MEDS: HYDROcodone/APAP 5/325 MG 1 TAB TAB PO PRN ×2 (08:43→15:43)
[2022-01-08] MEDS ORDERED: DOCUSATE SODIUM 100 MG GELCAP PO SCH (09:00)
[2022-01-08] MEDS ORDERED: FLUoxetine 20 MG CAP PO SCH (11:16)
[2022-01-08 12:00] VITALS: BP 108/69
[2022-01-08] MEDS ORDERED: ALBUTEROL 0.083% 2.5 MG/3 ML NEBU INH SCH (12:00)
[2022-01-08] MEDS: GABAPENTIN 300 MG CAP PO SCH ×2 (13:00→17:33)
[2022-01-08] MEDS ORDERED: FUROSEMIDE 40 MG/4 ML VIAL IVP SCH (14:07)
[2022-01-08 15:20] VITALS: BP 141/64
[2022-01-08 16:00] VITALS: BP 141/60
[2022-01-08] MEDS ORDERED: FUROSEMIDE 40 MG TAB PO SCH (17:00)
[2022-01-08] MEDS ORDERED: SIMVASTATIN 20 MG TAB PO SCH (17:00)
[2022-01-09] MEDS ORDERED: FLUoxetine 20 MG CAP PO SCH (09:00)
[2022-01-09] MEDS ORDERED: NON-FORMULARY ITEM (Apixaban (Eliquis) 5 MG) PO SCH (09:00)
== END 2022-01-08 19:55 | disposition home or self-care (01) ==
LOC: MED 19:20 → MTU 22:15
PROVIDERS: ADMIT Hospitalist; ATTEND Hospitalist
DX: G47.33 Obstructive sleep apnea (adult) (pediatric) (principal); Z20.822 Contact with and (suspected) exposure to COVID-19; G47.36 Sleep related hypoventilation in conditions classified elsewhere; R07.89 Other chest pain; I11.0 Hypertensive heart disease with heart failure; I50.33 Acute on chronic diastolic (congestive) heart failure; I20.9 Angina pectoris, unspecified; E78.5 Hyperlipidemia, unspecified; E66.01 Morbid (severe) obesity due to excess calories; F41.9 Anxiety disorder, unspecified; J44.9 Chronic obstructive pulmonary disease, unspecified; F15.11 Other stimulant abuse, in remission; Z88.0 Allergy status to penicillin; Z79.899 Other long term (current) drug therapy; Z87.891 Personal history of nicotine dependence
CPT/HCPCS: 36415; 71045; 76856; 80053; 81001; 82550; 82553; 82948; 83605; 83735; 83880; 84484; 85025; 85379; 87040; 87081; 87426; 94640; 94760; 96372; 96374; 96375; 99291; G0378; J1644; J1650; J1940; J2270; J7613; Q0092

== ENCOUNTER 2022-04-11 04:45 | Inpatient (IN) | payer OTHER ==
[~2022-04-11] VITALS: Ht 167.6 cm; Wt 202.8 kg
[~2022-04-11 04:45] MED LIST changes: +ALPR2TAB1 PO; +APIX5TAB4 PO; -BECL0.0464 INH; -BENZ100C6 PO; -DOXY-690 PO; +FLUO40CA6 PO; -LISI20TA29 PO; -METF-1139 PO; +POTA10TA75 PO; +SIMV-30 PO
--- NOTE | 2022-04-11 04:51 | NUR ---
PT W/C ASSISTED TO BED #2
[2022-04-11 05:06] VITALS: BP 79/37
[2022-04-11] MEDS ORDERED: MORPHINE SULFATE 4 MG/ML SYR IVP ONE (05:30)
[2022-04-11] MEDS: NITROGLYCERIN 2% 1 GM PKT TP ONE ×2 (06:12→06:23)
[2022-04-11] MEDS ORDERED: ENOXAPARIN 120 MG/0.8 ML SYR SUBQ ONE (06:35)
[2022-04-11] MEDS ORDERED: ASPIRIN 325 MG TAB PO ONE (06:35)
[2022-04-11] MEDS ORDERED: ACET-9525 PO (06:40)
[2022-04-11] MEDS ORDERED: LISI10TA30 PO (06:42)
--- NOTE | 2022-04-11 06:45 | NUR ---
Patient states that pain "has gone down to about a 1/10."
--- NOTE | 2022-04-11 07:03 | NUR ---
Called [facility] for bariatric bed [phone] at 06:57 04/11/22. Spoke with Bob; confirmation #[id number]
[2022-04-11] MEDS ORDERED: ONDANSETRON 4 MG/2 ML VIAL IVP PRN (07:05)
[2022-04-11] MEDS ORDERED: LORazepam 2 MG/ML VIAL IVP PRN (07:05)
[2022-04-11 07:17] LABS: BASOPHILS % (AUTO) 0.5 % (0.0-2.0); EOSINOPHILS # (AUTO) 0.2 K/uL (0-0.4); EOSINOPHILS % (AUTO) 3.4 % (0.0-4.0); HEMATOCRIT 28.1 % (36-48); HEMOGLOBIN 9.1 g/dL (12.0-16.0); LYMPHOCYTES # (AUTO) 1.6 K/uL (2.5-16.5); LYMPHOCYTES % (AUTO) 23.9 % (20.5-51.1); MEAN CORPUSCULAR HEMOGLOBIN 27 pg (27-31); MEAN CORPUSCULAR HGB CONC 32 g/dL (33-37); MEAN CORPUSCULAR VOLUME 84.7 fL (80-94); MONOCYTES # (AUTO) 0.9 K/uL (0.8-1.0); MONOCYTES % (AUTO) 14.4 % (1.7-9.3); NEUTROPHILS # (AUTO) 3.7 K/uL (1.8-7.7); NEUTROPHILS % (AUTO) 57.8 % (42.2-75.2); PLATELET COUNT (AUTO) 198 K/uL (140-450); RED BLOOD CELL COUNT(AUTO) 3.31 MIL/uL (4.20-5.40); RED CELL DISTRIBUTION WIDTH 16.3 % (11.6-13.7); WHITE BLOOD COUNT (AUTO) 6.5 K/uL (4.8-10.8)
--- NOTE | 2022-04-11 07:23 | NUR ---
Pt report given to AM shift nurse Gabbi CHUN. AM shift nurse Gabbi RN verbalized understanding of report, no further questions. Transfer of care complete.
--- NOTE | 2022-04-11 07:24 | NUR ---
Pt report received from ADIEL Schafer. Transfer of care at this time.
--- NOTE | 2022-04-11 07:28 | NUR ---
pt resting in bed with eyes closed, respirations even and unlabored. Responds to verbal stimuli. HOB elevated to facilitate breathing. All needs met at this time. Bed in low, dixon side rails raised, call light within reach.
[2022-04-11 07:42] LABS: ALBUMIN 3.8 g/dL (3.4-5.0); ANION GAP 10.2 (8-16); CARBON DIOXIDE 36.4 mmol/L (21-32); CREATININE 2.8 mg/dL (0.6-1.3); POTASSIUM 4.6 mmol/L (3.5-5.1); TOTAL BILIRUBIN 1.7 mg/dL (0.0-1.0)
[2022-04-11] MEDS ORDERED: NON-FORMULARY ITEM (Apixaban (Eliquis) 5 MG) PO SCH (09:00)
--- NOTE | 2022-04-11 09:15 | NUR ---
PT ARRIVED FROM ED VIA GURNEY AND ACCOMPANIED BY HOSPITAL STAFF. PT A+O*NPTE. PT ON O2 2L/MIN VIA NC. PT WAS TRANSFERRED TO SPECIAL BED (PT WT 448.8LBS PER REPORT). PT VERBALIZED UNDERSTANDING BED/TV/CALL LIGHT CONTROLS. ADMITTING TELEMETRY SHOWED SR+1 PAC.
--- NOTE | 2022-04-11 09:16 | NUR ---
Patient will be admitted to care of Dr Bryan. Admited to Telemetry. Will go to room 116. Belongings list completed. Report to ADIEL Jaquez.
[2022-04-11] MEDS: FLUoxetine 20 MG CAP PO SCH (09:51)
[2022-04-11] MEDS: GABAPENTIN 300 MG CAP PO SCH ×2 (09:51→21:56)
[2022-04-11] MEDS: lisinopriL 10 MG TAB PO SCH (09:51)
[2022-04-11] MEDS: FUROSEMIDE 40 MG TAB PO SCH ×2 (09:52→17:00)
[2022-04-11] MEDS: APIXABAN 2.5 MG TAB PO SCH (09:53)
[2022-04-11 10:00] VITALS: BP 120/39
--- NOTE | 2022-04-11 13:45 | NUR ---
DC PLANNING NILSON ATTEMPTED TO MEET WITH PATIENT TO COMPLETE ASSESSMENT, HOWEVER, PATIENT HEAVILY SLEEPING. Addendum: 04/11/22 at 1626 by Cristela Padilla SW ATTEMPTED TO MEET WITH PATIENT AT BEDSIDE TO COMPLETE ASSESSMENT.SW UNABLE TO WAKE PT, PATIENT HEAVILY SLEEPING. NILSON OUTREACHED TO PATIENTS EMERGENCY CONTACT, KATJA WHITLEY( DAUGHTER) TO GATHER COLLATERAL INFORMATION. KATJA CONFIRMS THAT PATIENT RESIDES WITH FAMILY AT THE ADDRESS LISTED ON FILE. KATJA REPORTS NO KNOWLEDGE OF AD IN PLACE AND ACCEPTED AD OFFERED BY NILSON. KATJA REPORTS MOM MEETS WITH PCP REGULARLY; LAST VISIT FEBRUARY 2022. LAST VISIT WITH BOLTING MACHINE OPERATOR FEBRUARY 2022. PATIENT IS REPORTED TO BE MEDICATION COMPLIANT WITH THE EXCEPTION OF WATER PILLS. PATIENT RECEIVES RX FROM [facility] IN [place]. PATIENT IS PRIMARILY BED BOUND AND REQUIRES ASSISTANCE WITH ALL ADL'S. PATIENT IS STAND ASSIST AND UTILIZES FWW WHEN AMBULATING. PATIENT UTILIZES O2 AND BIPAP AT HOME. PATIENT HAS [facility] WORKER, [employer]LOE J[facility] WHO IS ALLOTTED 87HRS/MONTH AND PROVIDES CARE M-F. KATJA, REPORTS THAT MOTHER WAS AT [facility] 04/04-04/08. KATJA REPORTS [facility] WANTED TO SEND PT TO SNF HOWEVER, PT DECLINED SNF. PATIENT HAS RECEIVED HH IN THE PAST ABOUT 2 MONTHS AGO, KATJA UNABLE TO RECALL AGENCY NAME. KATJA, REPORTS PATIENT DROVE HERSELF TO HOSPITAL WHICH IS UNLIKE HER WITH REGARD TO HEALTH CONDITION. KATJA REPORTS PT HAS MENTAL HEALTH DX OF DEPRESSION AND ANXIETY AND TAKES MEDICATION TO MANAGE. DC PLAN IS FOR PATIENT TO RETURN HOME UNLESS DR EVELYN INDICATE ALTERNATIVE TX RECOMMENDATIONS AND PATIENT CHOICE. NILSON INQUIRED ON RESOURCES NEED, KATJA DECLINED AT THIS TIME. Addendum: 04/17/22 at 0748 by Cristela Padilla LATE ENTRY- ATTEMPT MADE AT 1:10 PM TO MEET PATIENT AT BEDSIDE. SPOKE TO PATIENTS FAMILY 1:30PM SW ATTEMPTED TO MEET WITH PATIENT AT BEDSIDE TO CLARIFY IF PATIENT HAD BIPAP MACHINE AT HOME, HOWEVER PATIENT WAS BEING SEEN BY CARE PROVIDER. NILSON OUTREACHED TO PATIENTS DAUGHTER, KATJA WHO REPORTED THAT SHE SPOKE WITH PATIENT. KATJA REPORTED THAT PT NO LONGER HAS BIPAP MACHINE, CORD HAD BECOME LOST AND SHORTLY AFTER BIPAP MACHINE WAS LOST. NILSON ENDORSED TO CM. CM TO FOLLOW WITH INSURANCE COMPANY . Addendum: 04/17/22 at 1602 by Cristela Padilla SPOKE WITH PT'S DAUGHTER KATJA AND REQUESTED SHE BRING IN PT'S O2 WHEN PICKING UP PT FOR DC. DAUGHTER IN AGREEMENT AND REPORTED THAT CAREGIVER OR BROTHER WILL PROVIDE TRANSPORTATION Addendum: 04/24/22 at 1122 by Cristela BANUELOS NILSON OUTREACHED TO PATIENTS PCP OFFICE AT [phone]. NILSON SPOKE WITH BRENT MCLAUGHLIN SCHEDULED FOR 04/28/22 AT 2:[address] VARELA, AT [address] [facility] [id number]. KELLY LEFT, PROVIDING APPT DETAILS THAT INCLUDED; DATE, TIME, ADDRESS, PHONE NUMBER AND
[2022-04-11] MEDS: ALBUTEROL 0.083% 2.5 MG/3 ML NEBU INH SCH ×2 (14:24→19:07)
--- NOTE | 2022-04-11 15:57 | NUR ---
PATIENT HAS BEEN SCREENED AND CATEGORIZED MODERATE NUTRITION RISK. PATIENT WILL BE SEEN WITHIN 3-[address]. [address]
[2022-04-11] MEDS: SIMVASTATIN 20 MG TAB PO SCH (17:00)
--- NOTE | 2022-04-11 19:30 | NUR ---
RECEIVED BEDSIDE REPORT FROM DAY SHIFT RN FOR CONTINUITY OF CARE. PT IS AWAKE WITH DAUGHTER BY BEDSIDE. PT AAOX4 ON RA. PT NOT IN ANY DISTRESS. PT HAS LEFT FOREARM 20 GAUGE SALINE LOCK. PT REQUESTED PAIN MEDICATION FOR CHEST PAIN AND MEDICATION FOR ANXIETY. PLAN OF CARE DISCUSSED.
[2022-04-11] MEDS: ALPRAZolam 0.5 MG TAB PO PRN (19:49)
[2022-04-11] MEDS: HYDROcodone/APAP 5/325 MG 1 TAB TAB PO PRN (19:49)
[2022-04-11 20:00] VITALS: BP 118/52
--- NOTE | 2022-04-11 20:00 | NUR ---
NORCO AND XANAX GIVEN FOR CHEST PAIN AND ANXIETY. PT ALSO WANTED A PUREWICK ON AND WAS APPLIED. NO OTHER COMPLAINS. WILL CONTINUE TO MONITOR THE PT.
[2022-04-11] MEDS: BLOOD GLUCOSE MONITORING 1 DEV DEV FS SCH (21:00)
--- NOTE | 2022-04-11 22:00 | NUR ---
SCHEDULE MEDS GIVEN. NO ADVERSE REACTION NOTED. WILL CONTINUE TO MONITOR THE PT.
[2022-04-12] VITALS: BP 108/76
[2022-04-12] MEDS: ALBUTEROL 0.083% 2.5 MG/3 ML NEBU INH SCH ×4 (00:39→19:29)
--- NOTE | 2022-04-12 00:45 | NUR ---
PT STATES SHE WEARS CPAP AT HOME, PLACED HER ON A V60 WITH THE CPAP SETTING OF 7 AND 40% FIO2. PT IS TOLERATING WELL, AND RESTING COMFORTABLY
--- NOTE | 2022-04-12 00:53 | NUR ---
PT IS CURRENTLY SLEEPING IN BED. PT IS ON CPAP SATING 100%. NOT IN ANY RESPIRATORY DISTRESS. CALL LIGHT WITHIN REACH. WILL CONTINUE TO MONITOR THE PT.
--- NOTE | 2022-04-12 02:05 | NUR ---
OBSERVED PT. PT IS SLEEPING IN BED WITH CPAP. PT IS NOT IN ANY RESPIRATORY DISTRESS. VISIBLE RISE AND CHEST FALL. PT IS SATING 100%. CALL LIGHT WITHIN REACH. WILL CONTINUE TO MONITOR THE PT.
[2022-04-12 04:00] VITALS: BP 126/40
[2022-04-12] MEDS: BLOOD GLUCOSE MONITORING 1 DEV DEV FS SCH ×4 (06:36→20:57)
[2022-04-12 07:19] LABS: HEMATOCRIT 25.5 % (36-48); HEMOGLOBIN 8.5 g/dL (12.0-16.0); MEAN CORPUSCULAR HEMOGLOBIN 28 pg (27-31); MEAN CORPUSCULAR HGB CONC 33 g/dL (33-37); MEAN CORPUSCULAR VOLUME 84.9 fL (80-94); PLATELET COUNT (AUTO) 211 K/uL (140-450); RED CELL DISTRIBUTION WIDTH 16.1 % (11.6-13.7); WHITE BLOOD COUNT (AUTO) 5.5 K/uL (4.8-10.8)
--- NOTE | 2022-04-12 07:27 | NUR ---
ENDORSED PT TO DAY SHIFT RN FOR CONTINUITY OF CARE. PT IS STABLE.
[2022-04-12 07:29] LABS: ANION GAP 10.1 (8-16); CARBON DIOXIDE 34.9 mmol/L (21-32); CREATININE 2.5 mg/dL (0.6-1.3)
--- NOTE | 2022-04-12 07:45 | NUR ---
PT RECEIVED FROM [facility] RT, PT SEEN IN BED ON ROOM AIR, WITH CPAP MACHINE NEXT TO PATIENT. PT NOT IN ANY RESPIRATORY DISTRESS, PT'S BREATH SOUNDS WERE DIMINISHED AND HHNTX WAS GIVEN, PT COACHED ON DEEP BREATHING TECHNIQUE AND COUGHING AND EXPELLING SECRETIONS. PT TOLERATED TX WELL, AND IN NO RESPIRATORY DISTRESS.
[2022-04-12 08:00] VITALS: BP 96/57
[2022-04-12 08:25] LABS: EOSINOPHILS % (MANUAL) 5 % (0-4); LYMPHOCYTES % (MANUAL) 31 % (20-46); MONOCYTES % (MANUAL) 15 % (5-12)
[2022-04-12] MEDS: lisinopriL 10 MG TAB PO SCH (09:37)
[2022-04-12] MEDS: GABAPENTIN 300 MG CAP PO SCH ×2 (09:37→20:56)
[2022-04-12] MEDS: FLUoxetine 20 MG CAP PO SCH (09:37)
[2022-04-12] MEDS: FUROSEMIDE 40 MG TAB PO SCH (09:38)
[2022-04-12] MEDS: ASPIRIN 81 MG TAB.CHEW PO SCH (09:38)
[2022-04-12] MEDS: APIXABAN 2.5 MG TAB PO SCH (09:40)
[2022-04-12 12:00] VITALS: BP 90/56
[2022-04-12] MEDS: INSULIN LISPRO SLIDING SCALE 100 UNITS/ML VIAL SUBQ PRN (13:07)
--- NOTE | 2022-04-12 14:00 | NUR ---
SCREEN FOR LOW ANCA SCALE AT RISK, CONTINUE TO FOLLOW PRESSURE ULCER PREVENTION INTERVENTIONS. -TURN AND REPOSITION PATIENT Q 2H, ASSIST IF NEEDED -ASSESS AND MONITOR SKIN CONDITION DURING POSITION CHANGES -OFFLOAD BILATERAL HEELS BY PLACING PILLOWS UNDER CALVES AT ALL TIMES, UNLESS OTHERWISE CONTRAINDICATED -PRESSURE REDISTRIBUTION BY PLACING PILLOWS AND OFFLOADING SACRALCOCCYX -KEEP SKIN CLEAN AND DRY AT ALL TIMES.
--- NOTE | 2022-04-12 14:30 | NUR ---
PT WAS TAKEN OFF CPAP MACHINE AND PLACED ON 2L NASAL CANNULA, PT AWAKE ALERT AND ON PHONE, PT SEEN IN NO RESPIRATORY DISTRESS.
[2022-04-12 16:00] VITALS: BP 91/54
[2022-04-12] MEDS ORDERED: FUROSEMIDE 40 MG/4 ML VIAL IVP SCH (17:00)
[2022-04-12] MEDS: SIMVASTATIN 20 MG TAB PO SCH (17:53)
--- NOTE | 2022-04-12 19:30 | NUR ---
RECEIVED BEDSIDE REPORT FROM DAY SHIFT RN FOR CONTINUITY OF CARE. PT IS AWAKE AAOX4. PT IS ON NC 2L SATING 96%. PT CURRENTLY HAS NO IV. PT COMPLAINING OF LEFT CHEST PAIN. WILL CHECK VITALS AND GIVE PRN MEDICATION. NO OTHER COMPLAINS WILL CONTINUE TO MONITOR THE PT.
[2022-04-12 20:00] VITALS: BP 101/75
[2022-04-12] MEDS: ALPRAZolam 0.5 MG TAB PO PRN (20:56)
--- NOTE | 2022-04-12 21:00 | NUR ---
SCHEDULE MEDS GIVEN. NO ADVERSE REACTION NOTED. WILL CONTINUE TO MONITOR THE PT.
--- NOTE | 2022-04-12 23:10 | NUR ---
OBSERVED PT. PT IS SLEEPING WITH CPAP ON SATING 98%. PT IS NOT IN ANY RESPIRATORY DISTRESS. CALL LIGHT WITHIN REACH. WILL CONTINUE TO MONITOR THE PT.
[2022-04-13] VITALS: BP 103/44
[2022-04-13] MEDS: ALBUTEROL 0.083% 2.5 MG/3 ML NEBU INH SCH ×4 (00:48→20:03)
--- NOTE | 2022-04-13 01:30 | NUR ---
PT OBSERVED. PT WOKE UP WANTING WATER. REMOVED CPAP AND LET THE PT DRINK SOME WATER. PUT CPAP BACK ON. PT SATURATING WELL AT 99%. NO OTHER COMPLAINS. WILL CONTINUE TO MONITOR THE PT.
[2022-04-13 04:00] VITALS: BP 100/42
--- NOTE | 2022-04-13 04:13 | NUR ---
PT OBSERVED. PT IS ASLEEP WITH NO RESPIRATORY DISTRESS. PT IS STILL ON CPAP. PT SATURATING WELL AT 100%. WILL CONTINUE TO MONITOR THE PT.
[2022-04-13] MEDS: BLOOD GLUCOSE MONITORING 1 DEV DEV FS SCH ×4 (06:34→21:12)
--- NOTE | 2022-04-13 07:09 | NUR ---
ENDORSED PT TO DAY SHIFT RN FOR CONTINUITY OF CARE. PT IS STABLE.
--- NOTE | 2022-04-13 07:30 | NUR ---
RECEIVED ON A CAMILLE RESPIRGBSS V60 BIPAP ON CPAP MODE PLUGGED INTO RED OUTLET TOLERATING WELL WITHOUT ADVERSE REACTIONS TO A MEDIUM FACIAL MASK SECURED WITH HEAD GEAR ASLEEP EQUAL CHEST RISE AIRWAY PATENT
--- NOTE | 2022-04-13 07:30 | NUR ---
RECEIVED REPORT FROM NIGHTSHIFT NURSE. PT ON CPAP. RR EVEN & UNLABORED. ON CARDIAC DIET. PUREWICK IN PLACE. NO IV ACCESS, AWARE. NEEDS ALL MET AT THIS TIME. SAFETY MEASURES IN PLACE.
[2022-04-13 08:00] VITALS: BP 117/59
--- NOTE | 2022-04-13 08:40 | NUR ---
REMOVED FROM CPAP TO MASK PLACED ON SUPPLEMENTAL OXYGEN AT 3 LPM VIA NC PATIENT C/O OF NASAL DRYNESS WITH OXYGEN USAGE ADDED HUMIDIFIER
[2022-04-13] MEDS: APIXABAN 2.5 MG TAB PO SCH (08:53)
[2022-04-13] MEDS: FUROSEMIDE 40 MG TAB PO SCH ×2 (08:54→16:35)
[2022-04-13] MEDS: GABAPENTIN 300 MG CAP PO SCH ×2 (08:54→20:57)
[2022-04-13] MEDS: lisinopriL 10 MG TAB PO SCH (08:55)
[2022-04-13] MEDS: FLUoxetine 20 MG CAP PO SCH (08:55)
[2022-04-13] MEDS: ASPIRIN 81 MG TAB.CHEW PO SCH (08:55)
--- NOTE | 2022-04-13 09:20 | NUR ---
PT ON 3L NC. ON CONTINUOUS PULSE OX WITH O2 SAT @ 98%. PUREWICK IN PLACE WITH 900 ML BROWN URINE EMPTIED. PT STATES THE DARK BROWN URINE IS FROM HER, "FIBROIDS". ASSISTED IN POSITION CHANGE. PROVIDED ORAL FLUIDS. NEEDS ALL MET AT THIS TIME. ALL QUESTIONS ANSWERED. ITEMS/CALL LIGHT WITHIN REACH. ALL SAFETY MEASURES IN PLACE.
--- NOTE | 2022-04-13 11:00 | NUR ---
SPOKE WITH DR. ONOFRE REGARDING PT'S L SHOULDER PAIN AND R HIP PAIN. DR. ONOFRE STATES HE WILL INPUT ORDERS. ALSO DR. ONOFRE STATES TO PUT PT ON ROOM AIR. PT ON RA WITH O2 SAT @ 97%. WHEN PT TALKS O2 SAT RANGES FROM 91%-95%. NEEDS ALL MET AT THIS TIME. SAFETY MEASURES IN PLACE.
[2022-04-13 12:00] VITALS: BP 114/62
--- NOTE | 2022-04-13 14:54 | NUR ---
PT'S PUREWICK CONNECTOR DISCONNECTED FROM SUCTION. PT REPOSITIONED, HYGIENIC CARE GIVEN, AND NEW PUREWICK CONNECTED POSITIONED IN PLACE. HOB ELEVATED. O2 SATURATION @ 95%. 800 ML BROWN URINE EMPTIED FROM SUCTION CONTAINER. WATER PROVIDED FOR PT PER REQUESTS. NEEDS ALL MET AT THIS TIME. ALL SAFETY MEASURES IN PLACE.
--- NOTE | 2022-04-13 15:33 | NUR ---
AWAKE AND ALERT VERBALLY RESPONSIVE OFF SUPPLEMENTAL OXYGEN SATURATION 78% SCHEDULED HHN THERAPY GIVEN AT THIS TIME POST HHN THERAPY PLACED BACK ON HUMIDIFIED SUPPLEMENTAL OXYGEN AT 3 LPM VIA NC
[2022-04-13 16:00] VITALS: BP 110/59
[2022-04-13] MEDS: SIMVASTATIN 20 MG TAB PO SCH (16:36)
[2022-04-13] MEDS: HYDROcodone/APAP 5/325 MG 1 TAB TAB PO PRN (16:36)
--- NOTE | 2022-04-13 19:11 | NUR ---
REPORT GIVEN TO NIGHTSKSFT NURSE RADHA FOR CONTINUITY OF CARE.
--- NOTE | 2022-04-13 19:32 | NUR ---
RECEIVED REPORT FROM DAY SHIFT NURSE RIVERA. PATIENT IS A&OX4. PATIENT IS SLEEPING, LYING IN SEMI FOWLERS POSITION. PATIENT IS ON NC 3L, BREATHING NORMALLY WITH SYMMETRICAL RISE AND FALL OF CHEST. THERE IS NO IV PRESENT, MD IS AWARE AND HAS CHANGED PATIENT'S MEDICATIONS TO PO. BED IS IN LOWEST POSITION, WHEELS LOCKED, CALL LIGHT IN PLACE. WILL CONTINUE TO OBSERVE PATIENT.
[2022-04-13 20:00] VITALS: BP 110/54
--- NOTE | 2022-04-13 20:09 | NUR ---
OBTAINED 1999 VITALS. VITALS WERE: TEMP 97.7, HR 62, BP 110/54, O2 98, RR 18. PATIENT IS STILL SLEEPING. PATIENT IS ON 3L NC. PATIENT WOKE UP DURING VITALS AND REQUESTED A WARM BLANKET. CAME BACK INTO ROOM AFTER RETRIEVING WARM BLANKET, PATIENT WAS BACK TO SLEEP, LAID WARM BLANKET OVER PATIENT. WILL CONTINUE TO OBSERVE PATIENT.
--- NOTE | 2022-04-13 21:15 | NUR ---
GAVE 2099 MEDICATION TO PATIENT. PATIENT TOLERATED WELL. PATIENT WAS SLEEPING UPON ENTERING THE ROOM WEARING CPAP, RT HAD PLACED PATIENT ON CPAP AROUND 2019. BS WAS 142, NO INSULIN COVERAGE NEEDED. PATIENT WAS BREATHING NORMALLY WITH SYMMETRICAL RISE AND FALL OF CHEST. WILL CONTINUE TO OBSERVE.
[2022-04-14] VITALS: BP 100/49
--- NOTE | 2022-04-14 | NUR ---
OBTAINED 0000 VITALS FROM PATIENT. VITALS WERE: TEMP 97.4, HR 60, BP 100/49, O2 98, RR 18. PATIENT HAD REQUESTED ANXIETY MEDICATION ALPRAZOLAM, I INFORMED PATIENT THAT BP WAS TOO LOW TO GIVE MEDICATION AND ASKED IF THERE WAS ANYTHING TO HELP HER RELAX. PATIENT ASKED FOR ASSISTANCE IN CHANGING THE CHANNEL, I AIDED PATIENT IN CHANGING THE CHANNEL. PATIENT SOON FELL BACK TO SLEEP BEFORE I LEFT THE ROOM. PATIENT WAS ON CPAP7, BREATHING WAS NORMAL WITH SYMMETRICAL RISE AND FALL OF CHEST. WILL CONTINUE TO OBSERVE PATIENT.
[2022-04-14] MEDS: ALBUTEROL 0.083% 2.5 MG/3 ML NEBU INH SCH ×4 (01:12→19:07)
--- NOTE | 2022-04-14 02:00 | NUR ---
LOOKED IN ON PATIENT. PATIENT WAS SLEEPING WITH CPAP STILL ON. BEEN IN ROOM OFF AND ON WHEN EVER CPAP ALARM SOUNDED TO READJUST MASK. PATIENT HAS BEEN SLEEPING THROUGHOUT THE NIGHT. RT HAD BEEN IN AROUND 0100 TO GIVE PATIENT BREATHING TREATMENT. WILL CONTINUE TO OBSERVE PATIENT.
--- NOTE | 2022-04-14 03:00 | NUR ---
CALLED RT ABOUT PATIENT'S CPAP ALARM CONSTANTLY GOING OFF DESPITE READJUSTING PATIENT'S MASK. RT CAME AND MADE ADJUSTMENTS TO MASK AND MACHINE. ACCORDING TO RT, NO SETTINGS WERE CHANGED ON CPAP MACHINE. RT SAID IF THE MACHINE STARTS ALARMING AGAIN, TO CALL THEM BACK AND THEY'LL TAKE A LOOK AT IT. ALARM IS CURRENTLY NOT GOING OFF, PATIENT IS SLEEPING. WILL CONTINUE TO OBSERVE PATIENT.
[2022-04-14 04:00] VITALS: BP 119/61
--- NOTE | 2022-04-14 05:00 | NUR ---
OBTAINED PATIENT'S 0400 VITALS. VITALS WERE: TEMP 97.3, BP 119/61, HR 65, O2 99, RR 19. EMPTIED 500 ML OF URINE FROM SUCTION CONTAINER. URINE WAS DARK BROWN RED (HEMATURIA). PATIENT IS STILL WEARING CPAP7. PATIENT IS AWAKE AND COMPLAINING ABOUT L SHOULDER PAIN AND R HIP PAIN. PATIENT WANTS LIDOCAINE PATCHES FOR PAIN. THERE ARE NO ORDERS FOR LIDOCAINE PATCHES; MESSAGED DOCTOR RASHAD FOR LIDOCAINE PATCHES. PENDING RESPONSE.
--- NOTE | 2022-04-14 05:30 | NUR ---
DR SOLORZANO AUTHORIZED LIDOCAINE PATCH ONCE DAILY. PENDING PHARMACY APPROVAL. LIDOCAINE DIRECTIONS ARE ONCE DAILY AT BED TIME ([facility]). WILL INFORM PATIENT OF ORDER.
[2022-04-14] MEDS: BLOOD GLUCOSE MONITORING 1 DEV DEV FS SCH ×4 (07:00→20:29)
[2022-04-14] MEDS: ACETAMINOPHEN 325 MG TAB PO PRN (07:05)
--- NOTE | 2022-04-14 07:07 | NUR ---
OBTAINED BS. BS WAS 108. NO INSULIN COVERAGE WAS NEEDED. PATIENT WAS SLEEPING UPON ENTERING THE ROOM. WOKE PATIENT UP TO OBTAIN BS. PATIENT REQUESTED TYLENOL FOR PAIN. GAVE PATIENT TYLENOL FOR PAIN. PATIENT TOLERATED WELL. PATIENT WENT BACK TO SLEEP. STILL ON CPAP7. WILL ENDORSE TO DAY SHIFT NURSE.
--- NOTE | 2022-04-14 07:22 | NUR ---
RECEIVED ON A CAMILLE mana.bo V60 BIPAP ON CPAP MODE NOTED PLUGGED INTO RED OUTLET TOLERATING WELL WITHOUT ADVERSE REACTIONS NOTED TO A LARGE FACIAL MASK SECURED WITH HEAD GEAR LOC ASLEPP Addendum: 04/14/22 at 0736 by Iam Brown RT LOC ASLEEP RESTING WELL EASILY AWAKENS PATIENT STATES "1 WANT TO SLEEP" WILL KEEP CPAP TO MASK ON THIS TIME GOOD CHEST RISE AIRWAY PATENT
--- NOTE | 2022-04-14 07:30 | NUR ---
ENDORSED TO DAY SHIFT RIVERA FOR CONTINUITY OF CARE. PATIENT IS STABLE.
--- NOTE | 2022-04-14 07:30 | NUR ---
RECEIVED REPORT FROM NIGHTSHIFT NURSE. PT ON CPAP. ON CARDIAC DIET. PUREWICK IN PLACE. NO IV ACCESS. NEEDS ALL MET AT THIS TIME. SAFETY MEASURES IN PLACE.
[2022-04-14 08:00] VITALS: BP 101/51
--- NOTE | 2022-04-14 08:28 | NUR ---
ALLERGY SPECIALIST CALLED TO ROOM DR. RUBI FELIPE AT BEDSIDE REVIEWED CPAP USAGE, SpVt ON 7cmH2O,SATURATION, SUPPLEMENTAL OXYGEN USAGE OFF CPAP AT 3 LPM VIA NC ROSITA FELIPE; INCREASE CPAP TO [id number]` Addendum: 04/14/22 at 1043 by Iam Brown RT OFF BIPAP SUPPLEMENTAL OXYGEN AT 3 LPM VIA NC
[2022-04-14] MEDS: lisinopriL 10 MG TAB PO SCH (09:00)
[2022-04-14] MEDS: APIXABAN 2.5 MG TAB PO SCH (09:07)
[2022-04-14] MEDS: ASPIRIN 81 MG TAB.CHEW PO SCH (09:11)
[2022-04-14] MEDS: FUROSEMIDE 40 MG TAB PO SCH ×2 (09:12→16:51)
[2022-04-14] MEDS: GABAPENTIN 300 MG CAP PO SCH ×2 (09:13→20:33)
[2022-04-14] MEDS: FLUoxetine 20 MG CAP PO SCH (09:13)
[2022-04-14] MEDS: LIDOCAINE 5% 1 EA PATCH TP SCH (09:25)
--- NOTE | 2022-04-14 10:03 | NUR ---
ULTRASOUND AT BEDSIDE.
[2022-04-14 12:00] VITALS: BP 119/58
--- NOTE | 2022-04-14 13:18 | NUR ---
PT. WITH LOW ANCA SCALE AT MODERATE RISK, CONTINUE TO FOLLOW PRESSURE INJURY PREVENTION INTERVENTIONS. -POSITIONING: TURN AND REPOSITION PATIENT Q 2H OR SOONER USE PILLOWS TO KEEP BONY PROMINENCES FROM DIRECT CONTACT WITH SURFACES USE REPOSITIONING WEDGES TO PROVIDE 30-DEGREE ANGLE FOR SIDE LYING POSITIONS OFFLOADING OR FOAM DRESSING TO ALL TUBING TO PREVENT MEDICAL DEVICES RELATED PRESSURE INJURY -RE-EVALUATING AND MANAGING INCONTINENCE MONITOR SKIN CONDITION DURING POSITION CHANGE DO NOT MASSAGE REDNESS, BONY PROMINENCES FREQUENT CADEN-CARE AND PROVIDE BARRIER CREAMS PRN IF SOILING MOISTURE CONTROL BY OFFER BED PULIDO/URINAL /ABSORBENT PAD TO WICK AND HOLD MOISTURE KEEP SKIN DRY AND PROTECT FROM FRICTION -MANAGE FRICTION/SHEAR/MOBILITY KEEP HOB AT THE LOWEST LEVEL OF ELEVATION NO MORE THAN 30 DEGREE UNLESS OTHERWISE CONTRAINDICATED USE LIFT SHEET OR TRANSFER DEVICE TO MOVE PATIENT AND PREVENT LATERAL SHEER. PROTECT HEELS, ELBOWS BONY PROMINENCES WITH SKIN BERRIES OR FOAM DRESSING IF EXPOSED TO FRICTION OFFLOAD BILATERAL HEELS BY PLACING PILLOWS UNDER CALVES AT ALL TIMES, UNLESS OTHERWISE CONTRAINDICATED -PRESSURE REDISTRIBUTION SURFACE THERAPY NAYA ISOFLEX MATTRESS -NUTRITION: PLEASE FOLLOW RD RECOMMENDATIONS AND OFFER NUTRITION SUPPLEMENTS IF ORDERED.
[2022-04-14] MEDS: ALPRAZolam 0.5 MG TAB PO PRN (15:30)
[2022-04-14 16:00] VITALS: BP 104/45
--- NOTE | 2022-04-14 16:16 | NUR ---
04/14/2022 RD INITIAL ASSESSMENT COMPLETED. PLEASE REFER TO NUTRITION ASSESSMENT UNDER CARE ACTIVITY FOR ESTIMATED NUTRITIONAL NEEDS. 1.CONTINUE WITH CARDIAC DIET. 2.MONITOR WEIGHT 3.RD TO FOLLOW-UP IN 3-5 DAYS PATIENT IS MODERATE RISK. KIKI KEARNEY, RD
[2022-04-14] MEDS: SIMVASTATIN 20 MG TAB PO SCH (16:52)
--- NOTE | 2022-04-14 19:04 | NUR ---
REPORT GIVEN TO NIGHTSARFT NURSE DC FOR CONTINUITY OF CARE.
--- NOTE | 2022-04-14 19:10 | NUR ---
RECEIVED BEDSIDE REPORT FROM DAY SHIFT RN FOR CONTINUITY OF CARE. PT IS AWAKE WITH FAMILY BY BEDSIDE. PT IS ON NC 3L. PT NOT IN ANY DISTRESS. PT IS AAOX4. PT HAS PUREWICK ON. PLAN OF CARE DISCUSSED. WILL CONTINUE TO MONITOR THE PT.
[2022-04-14 20:00] VITALS: BP 111/50
[2022-04-14] MEDS: HYDROcodone/APAP 5/325 MG 1 TAB TAB PO PRN (20:34)
--- NOTE | 2022-04-14 20:42 | NUR ---
SCHEDULE MEDS GIVEN. NO ADVERSE REACTION NOTED. WILL CONTINUE TO MONITOR THE PT.
[2022-04-15] VITALS: BP 140/64
--- NOTE | 2022-04-15 00:45 | NUR ---
PT IS SLEEPING COMFORTABLY IN BED. PT IS ON CPAP SATING 96%. PT NOT IN ANY DISTRESS. CALL LIGHT WITHIN REACH. ALL SAFETY MEASURES TAKEN. WILL CONTINUE TO MONITOR THE PT.
[2022-04-15] MEDS: ALBUTEROL 0.083% 2.5 MG/3 ML NEBU INH SCH ×2 (01:02→19:55)
--- NOTE | 2022-04-15 02:36 | NUR ---
PT OBSERVED. PT IS SLEEPING IN BED. PT NOT IN ANY RESPIRATORY DISTRESS. CALL LIGHT WITHIN REACH. WILL CONTINUE TO MONITOR THE PT.
[2022-04-15 04:00] VITALS: BP 119/64
[2022-04-15] MEDS: HYDROcodone/APAP 5/325 MG 1 TAB TAB PO PRN ×2 (06:04→23:15)
--- NOTE | 2022-04-15 06:10 | NUR ---
PT WAS CLEANED AND CHANGED. PT TOLERATED IT WELL. PT IS STILL ON CPAP. SATING 94%. WILL CONTINUE TO MONITOR THE PT.
[2022-04-15] MEDS: BLOOD GLUCOSE MONITORING 1 DEV DEV FS SCH ×4 (06:46→21:00)
--- NOTE | 2022-04-15 07:02 | NUR ---
ENDORSED PT TO DAY SHIFT RN FOR CONTINUITY OF CARE. PT IS STABLE.
[2022-04-15 08:00] VITALS: BP 132/60
[2022-04-15] MEDS: GABAPENTIN 300 MG CAP PO SCH ×2 (08:36→21:00)
[2022-04-15] MEDS: FLUoxetine 20 MG CAP PO SCH (08:36)
[2022-04-15] MEDS: APIXABAN 2.5 MG TAB PO SCH ×2 (08:38→21:00)
[2022-04-15] MEDS: ASPIRIN 81 MG TAB.CHEW PO SCH (08:39)
[2022-04-15] MEDS: lisinopriL 10 MG TAB PO SCH (08:39)
[2022-04-15] MEDS: FUROSEMIDE 40 MG TAB PO SCH (08:39)
[2022-04-15] MEDS: LIDOCAINE 5% 1 EA PATCH TP SCH (08:40)
[2022-04-15] MEDS: INSULIN LISPRO SLIDING SCALE 100 UNITS/ML VIAL SUBQ PRN (11:44)
[2022-04-15 13:32] VITALS: BP 110/71
--- NOTE | 2022-04-15 14:27 | NUR ---
RT NOTES CALLED DR. RUBI FELIPE IN REGARDS TO CRITICAL VALUES FOR PT FROM ABG RESULTS. STATED THAT WE WILL KEEP PT ON O2 NEEDED DURING THE DAY AND KEEP BIPAP ON AT NIGHT WHILE SLEEPING. NO NEW ORDERS WERE ADVISED.
--- NOTE | 2022-04-15 14:55 | NUR ---
0730 Pt. in bed, sleeping, vss, no distress, SR on monitor. 0900 Took am meds, call light in reach 1430 ABG results called to Dr[address] Tanna Santizo, no new orders, keep on bipap at night and 02 nc during day. Pt. aaox3, no acute distress
[2022-04-15] MEDS ORDERED: FUROSEMIDE 40 MG/4 ML VIAL IVP SCH (16:20)
[2022-04-15] MEDS: SIMVASTATIN 20 MG TAB PO SCH (16:46)
[2022-04-15] MEDS: BUMETANIDE 1 MG TAB PO SCH ×2 (16:46→21:00)
[2022-04-15 17:00] VITALS: BP 100/44
--- NOTE | 2022-04-15 17:54 | NUR ---
P.T. NOTES P.T. EVAL COMPLETED; REFER TO EVAL FOR DETAILS.
--- NOTE | 2022-04-15 18:23 | NUR ---
1800 Pt. talking with family on phone, vss, no acute distress, call light in reach. Report given to noc shift, pt. needs met.
[2022-04-15 20:00] VITALS: BP 109/57
--- NOTE | 2022-04-15 23:50 | NUR ---
REMOVED BI-PAP PER PATIENT, STATED SHE HAD A PHONE CALL. PATIENT WANTED TO BE OFF BI-PAP UNTIL 0100 BREATHING TX. PT IS PLACED ON 3L N/C SATURATION AT 96%
[2022-04-16] VITALS: BP 115/60
[2022-04-16] MEDS: ALBUTEROL 0.083% 2.5 MG/3 ML NEBU INH SCH ×4 (01:03→19:00)
--- NOTE | 2022-04-16 01:13 | NUR ---
PLACED BACK BI-PAP, SETTING CPAP 10, 35% FIO2. PT IS SATURATING 100% WILL CONTINUE TO MONITOR
--- NOTE | 2022-04-16 02:43 | NUR ---
PATIENT VERY OBESE HAS BI-PAP ON . RATE 13, CPAP10 C-FLEX 3 02 35%.[id number]%. PATIENT LUNGS DIMINISH PATIENT HAS A [employer] WORK OK PATIENT ASK FOR NORCO5/325MG HAS SHOUDLER PAIN BLOOD SUGAR 113 NO INSULIN GIVEN. TOOK LIDOCAINE OFF 2039.NO DISTRESS NOTED.
[2022-04-16 04:00] VITALS: BP 110/62
[2022-04-16] MEDS: BUMETANIDE 1 MG TAB PO SCH ×3 (05:21→20:16)
--- NOTE | 2022-04-16 07:18 | NUR ---
RECEIVED REPORT FROM [facility] NURSE KIERRA FOR CONTINUITY OF CARE. PATIENT ASLEEP ON BI PAP NO DISTRESS NOTED. ALL SAFETY MEASURE IN PLACE.
[2022-04-16] MEDS: BLOOD GLUCOSE MONITORING 1 DEV DEV FS SCH ×4 (07:30→20:26)
[2022-04-16 08:00] VITALS: BP 101/46
[2022-04-16 08:36] LABS: BASOPHILS % (AUTO) 0.5 % (0.0-2.0); EOSINOPHILS # (AUTO) 0.2 K/uL (0-0.4); EOSINOPHILS % (AUTO) 3.1 % (0.0-4.0); HEMATOCRIT 26.7 % (36-48); HEMOGLOBIN 8.7 g/dL (12.0-16.0); LYMPHOCYTES # (AUTO) 1.7 K/uL (2.5-16.5); LYMPHOCYTES % (AUTO) 33.7 % (20.5-51.1); MEAN CORPUSCULAR HEMOGLOBIN 28 pg (27-31); MEAN CORPUSCULAR HGB CONC 32 g/dL (33-37); MEAN CORPUSCULAR VOLUME 85.1 fL (80-94); MONOCYTES # (AUTO) 0.7 K/uL (0.8-1.0); MONOCYTES % (AUTO) 13.4 % (1.7-9.3); NEUTROPHILS # (AUTO) 2.6 K/uL (1.8-7.7); NEUTROPHILS % (AUTO) 49.3 % (42.2-75.2); PLATELET COUNT (AUTO) 222 K/uL (140-450); RED BLOOD CELL COUNT(AUTO) 3.14 MIL/uL (4.20-5.40); RED CELL DISTRIBUTION WIDTH 15.7 % (11.6-13.7); WHITE BLOOD COUNT (AUTO) 5.2 K/uL (4.8-10.8)
[2022-04-16 09:01] LABS: ALBUMIN 3.4 g/dL (3.4-5.0); ANION GAP 7.9 (8-16); CARBON DIOXIDE 39.2 mmol/L (21-32); CREATININE 1.6 mg/dL (0.6-1.3); POTASSIUM 5.1 mmol/L (3.5-5.1); TOTAL BILIRUBIN 0.8 mg/dL (0.0-1.0)
[2022-04-16] MEDS: GABAPENTIN 300 MG CAP PO SCH ×2 (09:01→20:25)
[2022-04-16] MEDS: FLUoxetine 20 MG CAP PO SCH (09:02)
[2022-04-16] MEDS: LIDOCAINE 5% 1 EA PATCH TP SCH ×2 (09:03→20:27)
[2022-04-16] MEDS: APIXABAN 2.5 MG TAB PO SCH ×2 (09:05→20:19)
--- NOTE | 2022-04-16 09:13 | NUR ---
PATIENT ASLEEP BUT EASILY WAKE UP CHECKED BLOOD SUGAR NO COVERAGE FOR BLOOD SUGAR OF 101. PURE WICK CANISTER REPLACE OBTAINED 1,000 CC OF URINE LIGHT LEAH COLOR. PATIENT ATE HER BREAKFAST AND GIVEN HER MEDICATIONS. PATIENT REQUESTED TO CLOSE THE DOOR WHEN I LEAVE THE ROOM SO SHE CAN SLEEP AGAIN. CALL LIGHT WITH IN REACH.
[2022-04-16 12:00] VITALS: BP 139/96
--- NOTE | 2022-04-16 13:25 | NUR ---
DR. FELIPE RESPONDED TO MONITOR PATIENT BLEEDING AND IF GET WORST MAY HAVE CONSULT WITH DR. ARREGUIN.
--- NOTE | 2022-04-16 13:48 | NUR ---
GIVEN DUE MEDICATION PATIENT ON STABLE CONDITION.
--- NOTE | 2022-04-16 15:12 | NUR ---
DC PLANNING: PATIENT HAS AN ORDER FOR CPAP AND HOME O2 CALLED [facility] SPOKE WITH HILDA STATED PATIENT HAD CPAP WITH [facility] CALLED [facility] [phone] STATED THEY DON'T HAVE NEW EQUIPMENT AND HOME O2 WELL. CALLED [employer] SPOKE WITH NICOLAS, STATED THEY ARE CONTRACTED WITH [facility]. FAXED TO [phone]. CM TO FOLLOW Addendum: 04/17/22 at 1713 by Ana Veliz RN DC PLANNING: CALLED [employer] [phone] SPOKE WITH LESTER STATED HE DOESN'T HAVE A CPAP MACHINE AT THE [facility]AREHOU[facility] THEY HAVE TO SHIP FROM [place] TO [facility] AND TAKES 2-3 DAYS. SPOKE WITH THE COMMANDING OFFICER HOMICIDE SQUAD CHRISTIAN STATED THERE IS A DELAY OF SHIPMENT. PER RT RECOMMENDATION PATIENT HAS TO HAVE CPAP AT NIGHT FOR SLEEP APNEA. CM ASKED IF FAMILY CAN PICK IT UP WILL IT BE OK. PER LESTER WILL GET IT READY BY TOMORROW. CM CALLED KATJA VALDES'S DAUGHTER STATED BOTH SISTER HAS NO CAR TOGO TO [place] HOWEVER WILL FIND SOMEONE FOR TOMORROW. NOTIFIED DR FELIPE. CM TO FOLLOW Addendum: 04/18/22 at 1102 by Ana Veliz RN DC PLANNING: CALLED [facility] [phone] SPOKE WITH NICOLAS STATED HE [facility] WITH [facility] [place], DON'T HAVE IT. CALLED [facility] [phone] CM SPOKE WITH CHARISMA DISCUSSED THE ISSUE WITH [facility] AND IF THERE IS ANOTHER VENDOR WHO HAS CPAP . PER CHARISMA WILL CALL THE WALLPAPER CLEANER OF [facility] AND CALL US BACK. CM TO FOLLOW Addendum: 04/18/22 at 1455 by Ana Veliz RN DC PLANNING: CALLED [facility] CM SPOKE WITH PATRICK WILSON PENDING AUTH AWAITING THE NURSE TO REVIEW IT ONCE IT IS CLEAR WILL FAX THE HARD COPY OF THE AUTH TO [facility] AND WILL CALL US BACK. CM TO FOLLOW Addendum: 04/18/22 at 1648 by Ana Veliz RN DC PLANNING: STILL AWAITING AUTH FROM [facility] CALLED [facility] LEFT A MESSAGE RAMAN CALL [facility] OVER THE WEEKEND [phone] ONCE THEY DELIVER PT CAN BE DISCHARGED. Addendum: 04/22/22 at 1226 by Ana Veliz RN DC PLANNING: CALLED [facility] SPOKE WITH KANDI STATED NO AUTHORIZATION SUBMITTED FROM [facility], CALLED [facility] SPOKE WITH PATRICK VALVERDE STATED AUTH WAS READY SINCE THURSDAY HOWEVER BRANDON FAX THE HARD COPY TO US. RECEIVED THE HARD COPY, ANDREW DONG LEFT A MESSAGE CM TO FOLLOW Addendum: 04/22/22 at 1440 by Ana Veliz RN DC PLANNING: CALLED [facility] SPOKE WITH RUPERTO STATED HE HAS A PROBLEM WITH [facility] AUTHORIZATION BEFORE,EVEN THOUGH WE HAVE THE HARD COPY DIDN'T GET PAID FOR PRIOR ORDER AND REQUESTED THE PARTY PLAN DEMONSTRATOR FROM [facility]. CM PROVIDE THE CONTACT NUMBER FOR [facility]. CM TO FOLLOW Addendum: 04/22/22 at 1526 by Ana Veliz RN DC PLANNING: RUPERTO FROM [facility] CALLED [facility] AND REQUESTING A CONTRACT HOWEVER TO GET THE CONTRACT WILL TAKE SEVERAL DAYS BUT RUPERTO WON'T GIVE THE CPAP WITH HARD COPY AUTH. CALLED [facility] SPOKE WITH KAILYN WILSON OK WITH THE HARD COPY CALLED PATRICK AND PROVIDE THE [facility] INFORMATION. CM TO FOLLOW Addendum: 04/22/22 at 1646 by Ana Veliz RN DC PLANNING: RECEIVED A CALL FROM [facility] SPOKE WITH KAILYN ISLAS BIPAP DISCUSSED WITH DR SOLORZANO AND LIZ ROBLES PER DR ROBLES PT NEEDS BIPAP NOT CPAP. FAXED THE NEW ORDER FOR [facility] AND [facility] AND AWAITING FOR THE ETA. Addendum: 04/22/22 at 1703 by Ana Veliz RN DC PLANNING: [facility] WILL DELIVER THE BIPAP AT BED SIDE ONCE THEY DELIVER PLS CALL MD FOR DC ORDER. AWAITING FOR ETA.
[2022-04-16 16:00] VITALS: BP 131/66
--- NOTE | 2022-04-16 16:49 | NUR ---
PATIENT ASLEEP WITH BI PAP ON ON STABLE CONDITION. PATIENT PURE WICK CANISTER EMPTIED OBTAINED ANOTHER 1,00 CC OF URINE WITH BLOOD ON IT.
--- NOTE | 2022-04-16 16:50 | NUR ---
PATIENT NO FEVER CHILLS OR ANY OTHER SIGN OF INFECTION AT THIS TIME.
[2022-04-16] MEDS: SIMVASTATIN 20 MG TAB PO SCH (17:40)
--- NOTE | 2022-04-16 17:42 | NUR ---
BLOOD SUGAR CHECK NO COVERAGE NEEDED. GIVEN CHOLESTEROL MEDICATION. TOLERATED WELL. STILL NOTED URINE WITH BLOOD BUT ITS ONCOLOGY SOCIAL WORK NOW THAN THIS MORNING.
--- NOTE | 2022-04-16 19:20 | NUR ---
GAVE REPORT TO HEALTH SPECIALIST NURSE FOR CONTINUITY OF CARE. PATIENT ASLEEP WITH BI PAP ON PROPERLY WORKING.
[2022-04-16 20:00] VITALS: BP 130/53
--- NOTE | 2022-04-16 20:07 | NUR ---
FOUND PT OFF CPAP ON RA SPO2 IS AT 97% AT THIS TIME, NO SIGNS OF RESPIRATORY DISTRESS NOTED AT THIS TIME, EXPLAINED TO PT SHE NEEDS TO BE ON 3LPM N/C AND THE RISK OF NOT USING O2 ACCORDINGLY SHE STATES SHE UNDERSTANDS. SHE IS CURRENTLY EATING DINNER DECLINED HHN TX.
[2022-04-16] MEDS: ALPRAZolam 0.5 MG TAB PO PRN (20:35)
[2022-04-17] VITALS: BP 145/70
[2022-04-17] MEDS: ALBUTEROL 0.083% 2.5 MG/3 ML NEBU INH SCH (01:00)
[2022-04-17 04:00] VITALS: BP 140/68
[2022-04-17] MEDS: BUMETANIDE 1 MG TAB PO SCH ×3 (04:56→21:05)
[2022-04-17] MEDS: BLOOD GLUCOSE MONITORING 1 DEV DEV FS SCH ×4 (07:12→21:20)
[2022-04-17 08:00] VITALS: BP 103/53
--- NOTE | 2022-04-17 08:07 | NUR ---
RECEIVE ENDORSEMENT FROM PM SHIFT NURSE THAT PATIENT REST IN BED W/ NO IV ACCESS. DR. FELIPE IS VISITING PATIENT AND CHECK HER URIN OUT PUT CONDITION. PER DR. FELIPE, PLAN FOR PATIENT IS SETTING BI-PAP IN HOME AND URINATION OUT EXTRA FLUID. WILL CONTINUE TO MONITOR
[2022-04-17] MEDS: GABAPENTIN 300 MG CAP PO SCH ×2 (09:01→21:05)
[2022-04-17] MEDS: FLUoxetine 20 MG CAP PO SCH (09:02)
[2022-04-17] MEDS: APIXABAN 2.5 MG TAB PO SCH ×2 (09:03→21:01)
[2022-04-17 12:00] VITALS: BP 119/62
--- NOTE | 2022-04-17 15:49 | NUR ---
PATIENT WAS ABLE TO WALK TO BATHROOM FOR A SMALL BOWEL MOVEMENT WITH HELP OF PT AND TWO NURSE. PATIENT IS ABLE TO AMBULATORY WITH WALKER'S SUPPORT BUT UNABLE TO PULL HERSELF UP AND CLEAR HERSELF AFTER DONE THE BUSINESS. WILL CONTINUE TO MONITOR
[2022-04-17 16:00] VITALS: BP 113/64
[2022-04-17] MEDS: SIMVASTATIN 20 MG TAB PO SCH (17:41)
--- NOTE | 2022-04-17 19:35 | NUR ---
RECEIVED REPORT FROM AM NURSE SERA. PATIENT IN BED WELL RESTED TALKING ON THE PHONE. OXYGEN ONGOING. BREATHING NORMAL UNLABORED. ALL SAFETY MEASURES IN PLACE. WHEELS OF BED LOCKED. NO COMPLAINTS OF PAIN AT THIS TIME. NIECE AT BEDSIDE. CALL LIGHT WITHIN REACH. WILL CONTINUE TO MONITOR.
--- NOTE | 2022-04-17 19:45 | NUR ---
ENDORSE PATIENT TO PM SHIFT NURSE WHILE PATIENT REST IN BED W/ NO IV ACCESS. PUREWICK CONNECT TO WALL SUCTION, O2 4 LITER VIA NC
[2022-04-17 20:00] VITALS: BP 151/61
--- NOTE | 2022-04-17 21:05 | NUR ---
ALL 2100 SCHEDULED MEDICATIONS ADMINISTERED PER MD ORDER. TOLERATED WELL.
[2022-04-17] MEDS: ALPRAZolam 0.5 MG TAB PO PRN (21:16)
--- NOTE | 2022-04-17 21:16 | NUR ---
PATIENT IS FEELING ANXIOUS, PRN MEDICATION GIVEN.
--- NOTE | 2022-04-17 21:20 | NUR ---
BLOOD SUGAR WAS 120 NO INSULIN COVERAGE NEEDED.
[2022-04-17] MEDS: ALBUTEROL 0.083% 2.5 MG/3 ML NEBU INH PRN (21:29)
--- NOTE | 2022-04-17 21:30 | NUR ---
NOC NIV INITIATED CPAP 9 35% CPAP PLUGGED INTO RED OUTLET W/ ALARMS ON AND AUDIBLE PRN Tx GIVEN WILL CONTINUE TO MONITOR
--- NOTE | 2022-04-17 22:47 | NUR ---
PT MODE SWITCHED TO BIPAP 28/01 DUE TO LOW VOL ON CPAP FOR APPROX 5 MIN AND PT APPEARED TO NEED A LITTLE MORE SUPPORT WILL CONTINUE TO MONITOR AND TITRATE TOLERATED RN WAS ALSO INFORMED
[2022-04-18] VITALS (7 sets, daily range): BP systolic 99–131; BP diastolic 46–64
--- NOTE | 2022-04-18 00:15 | NUR ---
PATIENT ASKED FOR ADDITIONAL BLANKET, BLANKET GIVEN. PT ON BIPAP TOLERATING WELL.
[2022-04-18] MEDS: HYDROcodone/APAP 5/325 MG 1 TAB TAB PO PRN (02:23)
--- NOTE | 2022-04-18 02:23 | NUR ---
PATIENT COMPLAINED OF SEVERE PAIN (8/10) ON THE LEFT UPPER CHEST. MEDICATED WITH NORCO PRN.
--- NOTE | 2022-04-18 02:26 | NUR ---
HOT PACK PLACED ON THE LEFT UPPER CHEST PER PATIENT REQUEST. PT IS AAOX4. NO S/S OF RESPIRATORY DISTRESS. ON BIPAP TOLERATING WELL.
--- NOTE | 2022-04-18 05:10 | NUR ---
CALLED TO BEDSIDE BY RN TO REMOVED MASK FOR PT TO TAKE HER MEDS. MASK WAS PLACED BACK AFTER MEDS. PT TOLERATED WELL.
[2022-04-18] MEDS: BUMETANIDE 1 MG TAB PO SCH ×2 (05:20→12:59)
[2022-04-18 06:49] LABS: ANION GAP 9.4 (8-16); CARBON DIOXIDE 39.2 mmol/L (21-32); CREATININE 1.8 mg/dL (0.6-1.3); POTASSIUM 4.6 mmol/L (3.5-5.1)
--- NOTE | 2022-04-18 07:32 | NUR ---
RECEIVED PATIENT FROM SURVEY COORDINATOR NURSE FOR CONTINUITY OF CARE. PT IS AOX4, ABLE TO MAKE NEEDS KNOWN. RESPIRATIONS EVEN AND UNLABORED. ON 5L NC WITH O2 SATURATION IN PLACE. SKIN IS WARM, DRY, AND INTACT. NO IV ACCESS. DENIES PAIN AT AT THE ABDOMENT. PLAN OF CAREDISCUSSED SAFETY PRECAUTIONS IN PLACE
[2022-04-18] MEDS: BLOOD GLUCOSE MONITORING 1 DEV DEV FS SCH ×4 (07:40→21:00)
--- NOTE | 2022-04-18 07:51 | NUR ---
ENDORSED TO MORNING SHIFT RN FOR CONTINUITY OF CARE. PT IS STABLE.
[2022-04-18] MEDS: FLUoxetine 20 MG CAP PO SCH (09:13)
[2022-04-18] MEDS: GABAPENTIN 300 MG CAP PO SCH ×2 (09:13→20:35)
[2022-04-18] MEDS: APIXABAN 2.5 MG TAB PO SCH ×2 (09:15→20:34)
[2022-04-18] MEDS: LIDOCAINE 5% 1 EA PATCH TP SCH (09:17)
--- NOTE | 2022-04-18 09:45 | NUR ---
ALL SCHEDULED MEDS GIVEN. PT IS STABLE. NO DISTRESS NOTED. WILL CONTINUE TO MONITOR.
--- NOTE | 2022-04-18 13:25 | NUR ---
HEDULED MEDS GIVEN. PT IS STABLE. NO DISTRESS NOTED. WILL CONTINUE TO MONITOR.
--- NOTE | 2022-04-18 16:23 | NUR ---
04/18/22 RD FOLLOW UP COMPLETED. PLEASE REFER TO NUTRITION ASSESSMENT UNDER CARE ACTIVITY FOR ESTIMATED NUTRITIONAL NEEDS. 1.CONTINUE WITH CARDIAC DIET. 2.PROVIDED DIET EDUCATION ON CARDIAC DIET. 3.MONITOR WEIGHT 4.RD TO FOLLOW-UP IN 5-7 DAYS PATIENT IS LOW RISK. KIKI KEARNEY RD
[2022-04-18] MEDS: SIMVASTATIN 20 MG TAB PO SCH (17:25)
--- NOTE | 2022-04-18 17:25 | NUR ---
BS CHECK WAS 139. NO INSULIN COVERAGE NEEDED.
--- NOTE | 2022-04-18 19:35 | NUR ---
ENDORSED TO ROD TAPE OPERATOR NURSE FOR CONTINUITY OF CARE. PT IS STABLE.
--- NOTE | 2022-04-18 19:36 | NUR ---
RECEIVED REPORT FROM MORNING SHIFT NURSE. PATIENT RESTING COMFORTABLY IN BED WITH CPAP ON TOLERATING WELL. NO SOB NOTED RESPIRATION EVEN UNLABORED. NO COMPLAINTS OF PAIN. SAFETY MEASURES IN PLACE. CALL LIGHT WITHIN REACH. Addendum: 04/18/22 at 2014 by Jeana Aquino RN RN ERROR
--- NOTE | 2022-04-18 20:05 | NUR ---
RT CHANGED CPAP TO NC AT 2L.
--- NOTE | 2022-04-18 20:34 | NUR ---
ALL SCHEDULED MEDICATIONS ADMINISTERED PER MD ORDER. PATIENT IS STABLE.
[2022-04-18] MEDS: ALBUTEROL 0.083% 2.5 MG/3 ML NEBU INH PRN (20:43)
[2022-04-18] MEDS: INSULIN LISPRO SLIDING SCALE 100 UNITS/ML VIAL SUBQ PRN (21:00)
--- NOTE | 2022-04-18 21:00 | NUR ---
BLOOD SUGAR CHECK WAS 169, HUMALOG INSULIN GIVEN ORDERED PER SLIDING SCALE.
--- NOTE | 2022-04-18 22:52 | NUR ---
NOC NIV INITIATED W/ SETTINGS THEY WERE ON AVAPS ALARMS ON AND AUDIBLE BIPAP PLUGGED INTO RED OUTLET WILL CONTINUE TO MONITOR
--- NOTE | 2022-04-18 23:00 | NUR ---
PATIENT IS ON BIPAP TOLERATING WELL.
[2022-04-19] VITALS: BP 126/55
--- NOTE | 2022-04-19 01:45 | NUR ---
ANSWERED CALL LIGHT. HOT PACK PLACED ON THE LEFT UPPER CHEST PER PATIENT REQUEST. PER PT HOT PACK HELP RELIEVE THE PAIN.
[2022-04-19 04:00] VITALS: BP 123/48
--- NOTE | 2022-04-19 04:46 | NUR ---
MASK WAS READJUSTED AND PT SLIGHTLY READJUSTED SPO2 AND EASED OBSTRUCTION WILL CONTINUE TO MONITOR
--- NOTE | 2022-04-19 05:30 | NUR ---
PATIENT HAS HEMATURIA WITH BLOOD CLOTS. PER PATIENT SHE HAS FIBROIDS. NOTIFIED DR. ROSA AT 0541. AWAITING FOR REPLY.
[2022-04-19] MEDS: BLOOD GLUCOSE MONITORING 1 DEV DEV FS SCH ×4 (06:36→21:04)
[2022-04-19 07:28] LABS: CREATININE 1.7 mg/dL (0.6-1.3); POTASSIUM 4.2 mmol/L (3.5-5.1)
[2022-04-19 07:30] LABS: CARBON DIOXIDE 42.2 mmol/L (21-32)
--- NOTE | 2022-04-19 07:31 | NUR ---
ENDORSED PATIENT TO AM NURSE FOR CONTINUITY OF CARE.
[2022-04-19 07:32] LABS: BASOPHILS % (AUTO) 0.4 % (0.0-2.0); EOSINOPHILS # (AUTO) 0.2 K/uL (0-0.4); EOSINOPHILS % (AUTO) 3.2 % (0.0-4.0); HEMATOCRIT 29.3 % (36-48); HEMOGLOBIN 9.5 g/dL (12.0-16.0); LYMPHOCYTES # (AUTO) 1.7 K/uL (2.5-16.5); LYMPHOCYTES % (AUTO) 32.1 % (20.5-51.1); MEAN CORPUSCULAR HEMOGLOBIN 27 pg (27-31); MEAN CORPUSCULAR HGB CONC 33 g/dL (33-37); MEAN CORPUSCULAR VOLUME 84.3 fL (80-94); MONOCYTES # (AUTO) 0.7 K/uL (0.8-1.0); MONOCYTES % (AUTO) 12.7 % (1.7-9.3); NEUTROPHILS # (AUTO) 2.8 K/uL (1.8-7.7); NEUTROPHILS % (AUTO) 51.6 % (42.2-75.2); PLATELET COUNT (AUTO) 223 K/uL (140-450); RED BLOOD CELL COUNT(AUTO) 3.47 MIL/uL (4.20-5.40); RED CELL DISTRIBUTION WIDTH 15.8 % (11.6-13.7); WHITE BLOOD COUNT (AUTO) 5.4 K/uL (4.8-10.8)
--- NOTE | 2022-04-19 07:32 | NUR ---
RECEIVED PATIENT FROM HEDDLER NURSE FOR CONTINUITY OF CARE. PT IS AOX4, ABLE TO MAKE NEEDS KNOWN. RESPIRATIONS EVEN AND UNLABORED. BIPAP IN PLACE. O2 SATURATION AT 99%. SKIN IS WARM, DRY, AND INTACT. NO IV ACCESS. DENIES PAIN AT THE MOMENT. PLAN OF CARE DISCUSSED. SAFETY PRECAUTIONS IN PLACE. WILL CONTINUE TO MONITOR
[2022-04-19 08:00] VITALS: BP 109/56
--- NOTE | 2022-04-19 08:17 | NUR ---
RECEIVED ON A [employer] V60 BIPAP PLUGGED INTO RED OUTLET TOLERATING WELL WITHOUT ADVERSE REACTIONS NOTED TO A LARGE FACIAL MASK SECURED WITH HEAD GEAR LOC ASLEEP EASILY AWAKENS PATIENT STATES THAT "I WANT TO SLEEP" PATIENT WILL CONTINUE ON BIPAP TO MASK AT THIS TIME STABLE EQUAL CHEST RISE AIRWAY PATENT
[2022-04-19] MEDS: APIXABAN 2.5 MG TAB PO SCH (08:34)
[2022-04-19] MEDS: LIDOCAINE 5% 1 EA PATCH TP SCH (08:41)
[2022-04-19] MEDS: BUMETANIDE 1 MG TAB PO SCH ×2 (08:42→17:25)
[2022-04-19] MEDS: GABAPENTIN 300 MG CAP PO SCH ×2 (08:42→21:13)
[2022-04-19] MEDS: FLUoxetine 20 MG CAP PO SCH (08:43)
--- NOTE | 2022-04-19 09:30 | NUR ---
ALL SCHEDULED MEDS GIVEN. PT IS STABLE. NO DISTRESS NOTED. WILL CONTINUE TO MONITOR.
--- NOTE | 2022-04-19 10:33 | NUR ---
BRUSHER OPERATOR CALLED TO BEDSIDE PATIENT REQUESTING TO BE OFF BIPAP TO MASK AT THIS TIME PLACED ON SUPPLEMENTAL OXYGEN AT 3 LPM VIA NC
[2022-04-19 12:00] VITALS: BP 125/72
[2022-04-19] MEDS: INSULIN LISPRO SLIDING SCALE 100 UNITS/ML VIAL SUBQ PRN (12:26)
--- NOTE | 2022-04-19 12:26 | NUR ---
BS CHECK WAS 159. ADMINISTERED 2 UNITS OF INSULIN SQ PER MD ORDERED.
[2022-04-19] MEDS: ACETAZOLAMIDE SOD 250 MG TAB PO SCH (12:30)
[2022-04-19 16:00] VITALS: BP 106/44
[2022-04-19] MEDS: ALBUTEROL 0.083% 2.5 MG/3 ML NEBU INH PRN (16:54)
--- NOTE | 2022-04-19 17:08 | NUR ---
AWAKE AND ALERT VERBALLY RESPONSIVE PRE HHN THERAPY PATIENT STATES THAT SHE WANTS TO SLEEP AND GO ON BIPAP TO MASK
[2022-04-19] MEDS: SIMVASTATIN 20 MG TAB PO SCH (17:24)
--- NOTE | 2022-04-19 17:24 | NUR ---
BS CHECK WAS 149. NO INSULIN COVERAGE NEEDED
[2022-04-19] MEDS ORDERED: ALPRAZolam 0.5 MG TAB PO PRN (17:30)
--- NOTE | 2022-04-19 19:20 | NUR ---
ENDORSED TO FUR FLOOR WORKER NURSE FOR CONTINUITY OF CARE. PT IS STABLE.
--- NOTE | 2022-04-19 19:21 | NUR ---
RECEIVED PATIENT FROM MORNING SHIFT NURSE. PATIENT IS AWAKE ON BIPAP, NO SOB. RESPIRATION EVEN UNLABORED. SAFETY MEASURES IN PLACE. NO COMPLAINTS OF PAIN AT THIS TIME. CALL LIGHT WITHIN REACH. URINE CONTAINER IS FULL, CHANGED.
[2022-04-19 20:00] VITALS: BP 101/49
--- NOTE | 2022-04-19 20:45 | NUR ---
PT AWAKE AND ALERT PER PT REQUEST BIPAP PLACED ON STDBY AND PLACED ON 2LNC BIPAP REMAINS AT BEDSIDE SPO2 98% 5 MIN AFTER PLACING 2LNC
--- NOTE | 2022-04-19 21:04 | NUR ---
BLOOD SUGAR CHECK WAS 140, NO INSULIN COVERAGE NEEDED.
--- NOTE | 2022-04-19 21:13 | NUR ---
SCHEDULED MEDICATION ADMINISTERED PER MD ORDER.
--- NOTE | 2022-04-19 21:35 | NUR ---
PATIENT CLEANED AND CHANGED. PATIENT STATED I WANNA GO HOME, IS MY MACHINE ALREADY HERE? QUESTIONS ANSWERED.
[2022-04-20] VITALS: BP 123/60
--- NOTE | 2022-04-20 03:45 | NUR ---
PATIENT SLEEPING WITH SYMMETRICAL RISE AND FALL OF THE CHEST. CALL LIGHT WITHIN REACH.
[2022-04-20 04:00] VITALS: BP 132/58
--- NOTE | 2022-04-20 05:15 | NUR ---
PATIENT CLEANED AND CHANGED. PT IS STABLE.
[2022-04-20] MEDS: BLOOD GLUCOSE MONITORING 1 DEV DEV FS SCH ×4 (07:19→20:42)
--- NOTE | 2022-04-20 07:22 | NUR ---
REPORT RECEIVED FROM NIGHT RN, ALL CARES ASSUMED.
--- NOTE | 2022-04-20 07:40 | NUR ---
PATIENT IS STABLE. ENDORSED TO AM NURSE FOR CONTINUITY OF CARE.
[2022-04-20 08:00] VITALS: BP 136/60
--- NOTE | 2022-04-20 08:20 | NUR ---
RECEIVED ON A [employer] V60 BIPAP PLUGGED INTO RED OUTLET TOLERATING WELL WITHOUT COMPLICATIONS NOTED TO A LARGE FACIAL MASK SECURED WITH HEAD GEAR ASLEEP EASILY AWAKENS C/O SOB HHN PRN THERAPY GIVEN AT THIS TIME GOOD CHEST RISE PATENT AIRWAY
[2022-04-20] MEDS: ALBUTEROL 0.083% 2.5 MG/3 ML NEBU INH PRN (08:27)
[2022-04-20] MEDS: GABAPENTIN 300 MG CAP PO SCH ×2 (09:38→20:36)
[2022-04-20] MEDS: ACETAZOLAMIDE SOD 250 MG TAB PO SCH (09:38)
[2022-04-20] MEDS: BUMETANIDE 1 MG TAB PO SCH ×2 (09:38→17:00)
[2022-04-20] MEDS: FLUoxetine 20 MG CAP PO SCH (09:38)
[2022-04-20] MEDS: LIDOCAINE 5% 1 EA PATCH TP SCH (09:56)
--- NOTE | 2022-04-20 11:02 | NUR ---
PATIENT REMOVED FROM BIPAP TO MASK BY LESLEY/RN AT OR ABOUT 1000 PLACED ON SUPPLEMENTAL OXYGEN AT 3 LPM VIA NC
[2022-04-20 12:00] VITALS: BP 111/59
[2022-04-20 16:00] VITALS: BP 134/53
[2022-04-20] MEDS: SIMVASTATIN 20 MG TAB PO SCH (17:00)
--- NOTE | 2022-04-20 19:37 | NUR ---
REPORT GIVEN TO MG CHUN, ALL CARES ENDORSED.
--- NOTE | 2022-04-20 19:38 | NUR ---
RECEIVED PT TO MORNING SHIFT NURSE, PT IS LYING ON THE BED, BEDREST, AOX4, CAN VERBALIZE NEEDS AND ABLE FOLLOW COMMANDS. PT HAS 3L NC AND ON CARDIAC DIET. PT HAS NO IV AND ON PUREWICK. PT SKIN IS INTACT. ALL SAFETY MEASURES IMPLEMENTED. BED WHEELS ON LOCKED, BED IN LOW POSITION AND CALL LIGHT WITHIN REACH.
--- NOTE | 2022-04-20 19:55 | NUR ---
PLACED PT ON BIPAP AT THIS TIME FOR SLEEP. 30/01, FIO2 24%
[2022-04-20 20:00] VITALS: BP 122/68
--- NOTE | 2022-04-20 20:42 | NUR ---
ALL PRESCRIBED AND SCHEDULED MEDICATION WAS GIVEN TO PT PER MD ORDER. PT BLOOD GLUCOSE IS 133, NO INSULIN COVERAGE NEEDED. ALL SAFETY MEASURES IMPLEMENTED. BED WHEELS ON LOCKED, BED IN LOW POSITION AND CALL LIGHT WITHIN REACH.
--- NOTE | 2022-04-20 23:34 | NUR ---
CALLED THE RT PER PT REQUEST FOR THE BIPAP.
[2022-04-21] VITALS: BP 129/59
--- NOTE | 2022-04-21 01:00 | NUR ---
CHANGED THE PT LINENS AND DIAPER PER PT REQUEST. ALL SAFETY MEASURES IMPLEMENTED. BED IN LOW POSITION, BED WHEELS ON LOCKED AND CALL LIGHT WITHIN REACH.
--- NOTE | 2022-04-21 03:01 | NUR ---
PT IS SLEEPING WITH BIPAP SATING AT 99%. CHEST RISE AND FALL SYMMETRICALLY NOTED. NO S/S OF RESPIRATORY DISTRESS NOTED. ALL SAFETY MEASURES IMPLEMENTED. BED WHEELS ON LOCKED, BED IN LOW POSITION AND CALL LIGHT WITHIN REACH.
[2022-04-21 04:00] VITALS: BP 129/59
--- NOTE | 2022-04-21 04:00 | NUR ---
PT WAS GIVEN HOT TOWEL COMPRESS FOR LEFT SHOULDER PAIN PER PT REQUESTED. ALL SAFETY MEASURES IMPLEMENTED. BED IN LOW POSITION, BED WHEELS ON LOCKED AND CALL LIGHT WITHIN REACH.
[2022-04-21] MEDS: BLOOD GLUCOSE MONITORING 1 DEV DEV FS SCH ×4 (06:36→21:19)
--- NOTE | 2022-04-21 06:36 | NUR ---
PT BLOOD GLUCOSE IS 105. NO INSULIN COVERAGE NEEDED. ALL SAFETY MEASURES IMPLEMENTED. BED IN LOW POSITION, BED WHEELS ON LOCKED AND CALL LIGHT WITHIN REACH.
--- NOTE | 2022-04-21 07:25 | NUR ---
PT IS STABLE. ENDORSED PT TO MORNING SHIFT NURSE FOR CONTINUITY OF CARE.
--- NOTE | 2022-04-21 07:33 | NUR ---
got report from the night nurse, pt is sleeping bi pop is on [id number]
[2022-04-21 08:00] VITALS: BP 120/60
[2022-04-21] MEDS: GABAPENTIN 300 MG CAP PO SCH ×2 (09:02→21:04)
[2022-04-21] MEDS: ACETAZOLAMIDE SOD 250 MG TAB PO SCH (09:02)
[2022-04-21] MEDS: LIDOCAINE 5% 1 EA PATCH TP SCH (09:02)
[2022-04-21] MEDS: BUMETANIDE 1 MG TAB PO SCH ×2 (09:03→17:21)
[2022-04-21] MEDS: FLUoxetine 20 MG CAP PO SCH (09:03)
[2022-04-21 12:00] VITALS: BP 120/60
[2022-04-21 16:00] VITALS: BP 120/60
[2022-04-21] MEDS: SIMVASTATIN 20 MG TAB PO SCH (17:20)
[2022-04-21] MEDS: ALBUTEROL 0.083% 2.5 MG/3 ML NEBU INH PRN (19:35)
[2022-04-21 20:00] VITALS: BP 130/65
--- NOTE | 2022-04-21 21:55 | NUR ---
took patient off bipap at this time. patient wants to talk to family member on phone. will call when she wants it back on
--- NOTE | 2022-04-22 01:24 | NUR ---
0100 PT CALLED TO BE PUT BACK ON BIPAP. SAME SETTINGS. NO SOB NOTED
--- NOTE | 2022-04-22 02:21 | NUR ---
PATIENT ASLEEP,BIPAP IS ON,NO DISTRESS NOTED
[2022-04-22] MEDS: ACETAMINOPHEN 325 MG TAB PO PRN (03:53)
[2022-04-22 04:00] VITALS: BP 114/60
[2022-04-22] MEDS: ALBUTEROL 0.083% 2.5 MG/3 ML NEBU INH PRN ×2 (04:27→09:29)
--- NOTE | 2022-04-22 04:32 | NUR ---
PT COMPLAINS OF SOB. INLINE HHNTX GIVEN. INCREASED IPAP TO 18 EPAP STILL THE SAME 6
[2022-04-22] MEDS: BLOOD GLUCOSE MONITORING 1 DEV DEV FS SCH ×3 (06:50→16:35)
--- NOTE | 2022-04-22 07:19 | NUR ---
ENDORSED PT TO AM NURSE FOR CONTINUITY OF CARE.PT IS STABLE
--- NOTE | 2022-04-22 07:26 | NUR ---
GOT REPORT FROM THE NIGHT NURSE, PT SLEEPING WITH BI POP ON [id number]
[2022-04-22 08:00] VITALS: BP 118/54
[2022-04-22] MEDS: BUMETANIDE 1 MG TAB PO SCH ×2 (08:19→16:35)
[2022-04-22] MEDS: ACETAZOLAMIDE SOD 250 MG TAB PO SCH (08:19)
[2022-04-22] MEDS: GABAPENTIN 300 MG CAP PO SCH (08:19)
[2022-04-22] MEDS: LIDOCAINE 5% 1 EA PATCH TP SCH (08:21)
[2022-04-22] MEDS: FLUoxetine 20 MG CAP PO SCH (08:22)
[2022-04-22 08:25] LABS: ANION GAP 11.7 (8-16); CARBON DIOXIDE 35.1 mmol/L (21-32); CREATININE 1.6 mg/dL (0.6-1.3); POTASSIUM 3.8 mmol/L (3.5-5.1)
[2022-04-22] MEDS ORDERED: BUME1TAB PO (08:31)
[2022-04-22 08:47] LABS: HEMATOCRIT 31.7 % (36-48); HEMOGLOBIN 10.7 g/dL (12.0-16.0); MEAN CORPUSCULAR HEMOGLOBIN 28 pg (27-31); MEAN CORPUSCULAR HGB CONC 34 g/dL (33-37); MEAN CORPUSCULAR VOLUME 84.2 fL (80-94); PLATELET COUNT (AUTO) 268 K/uL (140-450); RED BLOOD CELL COUNT(AUTO) 3.76 MIL/uL (4.20-5.40); RED CELL DISTRIBUTION WIDTH 15.7 % (11.6-13.7); WHITE BLOOD COUNT (AUTO) 6.8 K/uL (4.8-10.8)
[2022-04-22 09:15] LABS: LYMPHOCYTES % (MANUAL) 7 % (20-46); MONOCYTES % (MANUAL) 9 % (5-12)
--- NOTE | 2022-04-22 09:30 | NUR ---
PMHX: COPD ASTHMA CHF MORBID OBESITY; RECEIVED ON A [employer] V60 BIPAP PLUGGED INTO RED OUTLET TOLERATING WELL WITHOUT ADVERSE REACTIONS NOTED TO A LARGE FACIAL MASK SECURED WITH HEAD GEAR LOC ASLEEP EASILY AWAKENS C/O SOB HHN PRN THERAPY GIVEN AT THIS TIME WITH IMPROVED AERATION POST THERAPY NOW AWAKE REMOVED FROM BIPAP TO MASK PLACED ON SUPPLEMENTAL OXYGEN AT 3 LPM VIA NC
--- NOTE | 2022-04-22 10:26 | NUR ---
STARTED IV IN LEFT HAND BY THE THUMB WITH 24 [id number]
[2022-04-22] MEDS: INSULIN LISPRO SLIDING SCALE 100 UNITS/ML VIAL SUBQ PRN (11:40)
[2022-04-22 12:00] VITALS: BP 118/54
[2022-04-22 16:00] VITALS: BP 136/71
[2022-04-22] MEDS: SIMVASTATIN 20 MG TAB PO SCH (16:34)
--- NOTE | 2022-04-22 17:17 | NUR ---
P.T. NOTES HOLD P.T. TX AT THIS TIME, NIECE PRESENT; Pt ON BiPAP; REVIEWED HEP, VERBALIZED UNDERSTANDING, WANTS TO EAT, NURSE NOTIFIED; FF UP TOMORROW IF ABLE. REC: HHPT, HOME W/ ASSIST, HOSPITAL BED, ASSESS O2 NEEDS, EXTRA-WIDE FWW
[2022-04-22 18:45] VITALS: BP 136/71
== END 2022-04-22 20:10 | disposition home or self-care (01) | DRG 194 ==
LOC: MED 04:45 → MTU 07:01 → OBSVTOIN 04-14 08:40
PROVIDERS: ADMIT Hospitalist; ATTEND Hospitalist
PROC: 5A09357 Assistance with Respiratory Ventilation, Less than 24 Consecutive Hours, Continuous Positive Airway Pressure (ICD-10-PCS; principal; 2022-04-12)
PROC: 5A09357 Assistance with Respiratory Ventilation, Less than 24 Consecutive Hours, Continuous Positive Airway Pressure (ICD-10-PCS; 2022-04-13)
PROC: 5A09357 Assistance with Respiratory Ventilation, Less than 24 Consecutive Hours, Continuous Positive Airway Pressure (ICD-10-PCS; 2022-04-14)
PROC: 5A09357 Assistance with Respiratory Ventilation, Less than 24 Consecutive Hours, Continuous Positive Airway Pressure (ICD-10-PCS; 2022-04-15)
PROC: 5A09357 Assistance with Respiratory Ventilation, Less than 24 Consecutive Hours, Continuous Positive Airway Pressure (ICD-10-PCS; 2022-04-16)
PROC: 5A09357 Assistance with Respiratory Ventilation, Less than 24 Consecutive Hours, Continuous Positive Airway Pressure (ICD-10-PCS; 2022-04-18)
PROC: 5A09357 Assistance with Respiratory Ventilation, Less than 24 Consecutive Hours, Continuous Positive Airway Pressure (ICD-10-PCS; 2022-04-19)
PROC: 5A09357 Assistance with Respiratory Ventilation, Less than 24 Consecutive Hours, Continuous Positive Airway Pressure (ICD-10-PCS; 2022-04-20)
PROC: 5A09357 Assistance with Respiratory Ventilation, Less than 24 Consecutive Hours, Continuous Positive Airway Pressure (ICD-10-PCS; 2022-04-21)
PROC: 5A09357 Assistance with Respiratory Ventilation, Less than 24 Consecutive Hours, Continuous Positive Airway Pressure (ICD-10-PCS; 2022-04-22)
DX: I11.0 Hypertensive heart disease with heart failure (principal); J96.01 Acute respiratory failure with hypoxia; N17.0 Acute kidney failure with tubular necrosis; L03.115 Cellulitis of right lower limb; I27.20 Pulmonary hypertension, unspecified; L03.116 Cellulitis of left lower limb; Z68.45 Body mass index [BMI] 70 or greater, adult; N17.9 Acute kidney failure, unspecified; I50.33 Acute on chronic diastolic (congestive) heart failure; E78.5 Hyperlipidemia, unspecified; J44.9 Chronic obstructive pulmonary disease, unspecified; G47.33 Obstructive sleep apnea (adult) (pediatric); Z20.822 Contact with and (suspected) exposure to COVID-19; E66.01 Morbid (severe) obesity due to excess calories; E11.9 Type 2 diabetes mellitus without complications; Z88.0 Allergy status to penicillin; Z79.899 Other long term (current) drug therapy; Z79.891 Long term (current) use of opiate analgesic
CPT/HCPCS: 96372; 96374; 99285; G0378; 36415; 71045; 73030; 76881; 80048; 80053; 82803; 82948; 83735; 83880; 84484; 85025; 85379; 93005; 94640; 94660; 94761; 97110; 97112; 97116; 97530; J1650; J2270; J7613; Q0092